=== PATIENT | female | born 1975 | race Two or more races ===

== ENCOUNTER 2018-11-08 17:14 | Inpatient (IN) | payer MEDICARE, MEDICAID ==
[~2018-11-08] VITALS: Ht 160 cm; Wt 56.3 kg
--- NOTE | 2018-11-08 17:46 | NUR ---
ED Nurse Note: pt was taken to ct with tech
--- NOTE | 2018-11-08 17:55 | NUR ---
ED Nurse Note: pt went back from ct with tech
[2018-11-08 18:00] VITALS: BP 97/65
--- NOTE | 2018-11-08 18:00 | NUR ---
ED Nurse Note: pt was brought in by ambulance with from home c/o new onset of seizure, per pt pt has seizure and was advised by the md to take the pt to the hospital, pt has musculoskeletal problem and was contracted, unable to stated the dx of the pt. pt came with g tube, and is on diaper, per pt , pt has pressure ulcer on the coccyx area. pt incomprehensible. will continue to monitor.
--- NOTE | 2018-11-08 18:03 | Diagnostic Imaging Report ---
Indication: Reason For Exam: AMS Technique: Continuous helical CT scanning of the head was performed without intravenous contrast material. Axial and coronal 5 mm sections were generated. Radiation dose was minimized using automated exposure control Dose: Total Dose Length Product - DLP 1404.[address] Dose Index - CTDIvol(s) 70.38 mGy. Comparison: None available FINDINGS: Examination is degraded by motion artifact, limiting assessment of the skull base. There is no acute intracranial hemorrhage, mass effect or cortical edema. The ventricles, cisterns and sulci are normal for age. Visualized mastoid air cells and paranasal sinuses are unremarkable. No focal lesions of the bony calvarium or soft tissues of the scalp are seen. IMPRESSION: Limited examination due to motion artifact. No evidence of acute intracranial hemorrhage, mass effect or cortical edema. MRI may be obtained for more sensitive evaluation as clinically indicated. These findings are concordant with the [facility] preliminary report. The CT scanner at [facility] is accredited by the [employer] and the scans are performed using protocols designed to limit radiation exposure to as low as reasonably achievable to attain images of sufficient resolution adequate for diagnostic evaluation.
--- NOTE | 2018-11-08 18:27 | NUR ---
ED Nurse Note: iv stablished on pt left hand, with good blood flow, blood drawn and was sent to lab. ivf started. will continue to monitor.
[2018-11-08] MEDS ORDERED: ATIVAN1 MG ORAL (18:56)
[2018-11-08] MEDS ORDERED: MORPHINE IR15 MG ORAL (18:56)
[2018-11-08] MEDS ORDERED: SEROQUEL300 MG ORAL (18:56)
[2018-11-08] MEDS ORDERED: SENNA LAXATIVE8.6 MG PO (18:56)
[2018-11-08 18:57] LABS: BASOPHILS % (AUTO) 1.3 % (0.0-2.0); EOSINOPHILS % (AUTO) 1.9 % (0.0-3.0); HEMATOCRIT 36.8 % (37.0-47.0); LYMPHOCYTES % (AUTO) 21.9 % (20.0-45.0); MEAN CORPUSCULAR VOLUME 93 FL (80-99); MONOCYTES % (AUTO) 9.2 % (1.0-10.0); NEUTROPHILS % (AUTO) 65.8 % (45.0-75.0); PLATELET COUNT 207 K/UL (150-450); RED BLOOD COUNT 3.97 M/UL (4.20-5.40); RED CELL DISTRIBUTION WIDTH 11.2 % (11.6-14.8); WHITE BLOOD COUNT 5.8 K/UL (4.8-10.8)
--- NOTE | 2018-11-08 19:10 | NUR ---
HAND-OFF: Report given to Lory BARRERA. pt is hooked on monitor, with vs within normal limit. pt and son on bedside.
[2018-11-08 19:11] LABS: APPEARANCE,URINE CLEAR; BILIRUBIN, URINE NEGATIVE (NEGATIVE); GLUCOSE, URINE (UA) NEGATIVE (NEGATIVE); KETONES,URINE NEGATIVE (NEGATIVE); LEUKOCYTE ESTERASE ,URINE 1+ (NEGATIVE); NITRITE,URINE NEGATIVE (NEGATIVE); PH,URINE 7 (4.5-8.0); PROTEIN,URINE NEGATIVE (NEGATIVE); UROBILINOGEN,URINE NORMAL MG/DL (0.0-1.0)
[2018-11-08 19:14] LABS: ANION GAP 8 mmol/L (5-15); BLOOD UREA NITROGEN 17 mg/dL (7-18); CALCIUM 9.2 MG/DL (8.5-10.1); CARBON DIOXIDE 31 MMOL/L (21-32); CHLORIDE 102 MMOL/L (98-107); CREATININE 0.6 MG/DL (0.55-1.30); POTASSIUM 4.2 MMOL/L (3.5-5.1); SODIUM 141 MMOL/L (136-145)
[2018-11-08 19:19] LABS: COLOR,URINE YELLOW
[2018-11-08 19:26] LABS: ALANINE AMINOTRANSFERASE 22 U/L (12-78); ALBUMIN 3.4 G/DL (3.4-5.0); ALBUMIN/GLOBULIN RATIO 0.8 (1.0-2.7); ALKALINE PHOSPHATASE 114 U/L (46-116); ASPARTATE AMINO TRANSFERASE 23 U/L (15-37); BILIRUBIN,TOTAL 0.2 MG/DL (0.2-1.0); CKMB < 0.5 NG/ML (0.0-3.6); CREATINE KINASE 92 U/L (26-308)
[2018-11-08] MEDS ORDERED: levETIRAcetam 1,000mg/NS100ml 100 ML IVPB ONE (19:30)
[2018-11-08] MEDS ORDERED: Morphine Sulfate 2mg/ml Inj(IV/IM USE ONLY) IVP ONE (19:45)
[2018-11-08] MEDS ORDERED: LORazepam Inj 2mg/ml 1ml IV ONE (19:45)
--- NOTE | 2018-11-08 20:13 | Emergency Room Report ---
History of Present Illness General Chief Complaint: Seizure Source: Patient, Family Member, Significant Other Present Illness HPI 43-year-old female presents ED for evaluation. Brought in by EMS for multiple seizures. Occurred today at home. Patient is bedbound. No reported fall or injury. at bedside states that patient has a neurological disorder. Patient is at her baseline however patient appears to be gesturing with her arms and legs. Patient was initially in hospice care but was taken out of hospice care. Patient upon arrival patient signs of distress. Unable to provide any additional history at this time. No other aggravating relieving factors. No other associated symptoms Allergies: Coded Allergies: No Known Allergies (Unverified , 11/08/18) Patient History Past Medical History: seizures, other - neurological disorder Past Surgical History: none Pertinent Family History: none Social History: Denies: smoking, alcohol use, drug use Now: No Immunizations: UTD Reviewed Nursing Documentation: PMH: Agreed; PSxH: Agreed Nursing Documentation-PMH Past Medical History: No History, Except For Hx Seizures: Yes Review of Systems All Other Systems: limited Physical Exam Vital Signs Date Time Temp Pulse Resp B/P (MAP) Pulse Ox O2 Delivery O2 Flow Rate FiO2 11/08/18 17:24 98.8 82 14 97/65 (76) 100 Nasal Cannula 2.0 Sp02 EP Interpretation: reviewed, normal General Appearance: no apparent distress, other - nonverba, Postictal Head: normocephalic Eyes: bilateral eye normal inspection, bilateral eye PERRL ENT: normal ENT inspection Neck: normal inspection Respiratory: chest non-tender, lungs clear, normal breath sounds, speaking full sentences Cardiovascular #1: regular rate, rhythm, no edema Gastrointestinal: normal bowel sounds, non tender, soft, non-distended, no guarding, no rebound Rectal: deferred Genitourinary: no CVA tenderness Musculoskeletal: other - gesturing upper extremities Neurologic: other - nonverbal Psychiatric: other - nonverbal Skin: other - see nursing skin notes Lymphatic: normal inspection Medical Decision Making Diagnostic Impression: Primary Impression: Seizure disorder ER Course Hospital Course 54-year-old F presents to ED status post seizure. Differential diagnosis includes- breakthrough seizure, alcohol abuse, noncompliance with medication Clinical course Patient placed on stretcher. Initial history and physical I ordered labs, IV fluids, EKG, CT brain Labs-electrolytes okay, no leukocytosis noted, hemoglobin/hematocrit stable. UA negative EKG - NSr, no acute ischemic changes itnerpreted by me CXR - no acute process CT Brain ok Given loading dose of Keppra. Case discussed with Dr. Merlos and he agreed to accept the patient to his service for further care and support. i. I feel this is a highly complex case requiring extensive working including EKG/Rhythm strip, Xray/CT/US, Blood/urine lab work, repeat exams while in ED, and administration of strong opiates/narcotics for pain control, admission to hospital or close patient follow up. Diagnosis - seizure admitted to floor in serious condition Labs Test 11/08/18 18:10 11/08/18 18:51 White Blood Count 5.8 K/UL (4.8-10.8) Red Blood Count 3.97 M/UL (4.20-5.40) Hemoglobin 13.0 G/DL (12.0-16.0) Hematocrit 36.8 % (37.0-47.0) Mean Corpuscular Volume 93 FL (80-99) Mean Corpuscular Hemoglobin 32.7 PG (27.0-31.0) Mean Corpuscular Hemoglobin Concent 35.3 G/DL (32.0-36.0) Red Cell Distribution Width 11.2 % (11.6-14.8) Platelet Count 207 K/UL (150-450) Mean Platelet Volume 7.1 FL (6.5-10.1) Neutrophils (%) (Auto) 65.8 % (45.0-75.0) Lymphocytes (%) (Auto) 21.9 % (20.0-45.0) Monocytes (%) (Auto) 9.2 % (1.0-10.0) Eosinophils (%) (Auto) 1.9 % (0.0-3.0) Basophils (%) (Auto) 1.3 % (0.0-2.0) Prothrombin Time 10.5 SEC (9.30-11.50) Prothromb Time International Ratio 1.0 (0.9-1.1) Activated Partial Thromboplast Time 30 SEC (23-33) Sodium Level 141 MMOL/L (136-145) Potassium Level 4.2 MMOL/L (3.5-5.1) Chloride Level 102 MMOL/L (98-107) Carbon Dioxide Level 31 MMOL/L (21-32) Anion Gap 8 mmol/L (5-15) Blood Urea Nitrogen 17 mg/dL (7-18) Creatinine 0.6 MG/DL (0.55-1.30) Estimat Glomerular Filtration Rate > 60 mL/min (>60) Glucose Level 80 MG/DL (74-106) Lactic Acid Level 0.90 mmol/L (0.4-2.0) Calcium Level 9.2 MG/DL (8.5-10.1) Total Bilirubin 0.2 MG/DL (0.2-1.0) Aspartate Amino Transf (AST/SGOT) 23 U/L (15-37) Alanine Aminotransferase (ALT/SGPT) 22 U/L (12-78) Alkaline Phosphatase 114 U/L (46-116) Total Creatine Kinase 92 U/L (26-308) Creatine Kinase MB < 0.5 NG/ML (0.0-3.6) Creatine Kinase MB Relative Index 0.5 Troponin I 0.000 ng/mL (0.000-0.056) Pro-B-Type Natriuretic Peptide 25 pg/mL (0-125) Total Protein 7.7 G/DL (6.4-8.2) Albumin 3.4 G/DL (3.4-5.0) Globulin 4.3 g/dL Albumin/Globulin Ratio 0.8 (1.0-2.7) Urine Color Yellow Urine Appearance Clear Urine pH 7 (4.5-8.0) Urine Specific Funk 1.010 (1.005-1.035) Urine Protein Negative (NEGATIVE) Urine Glucose (UA) Negative (NEGATIVE) Urine Ketones Negative (NEGATIVE) Urine Blood 1+ (NEGATIVE) Urine Nitrite Negative (NEGATIVE) Urine Bilirubin Negative (NEGATIVE) Urine Urobilinogen Normal MG/DL (0.0-1.0) Urine Leukocyte Esterase 1+ (NEGATIVE) Urine RBC 0-2 /HPF (0 - 2) Urine WBC 2-4 /HPF (0 - 2) Urine Squamous Epithelial Cells Few /LPF (NONE/OCC) Urine Bacteria Few /HPF (NONE) EKG Diagnostic Results Rate: normal Rhythm: NSR ST Segments: no acute changes ASA given to the pt in ED: No Rhythm Strip Diag. Results EP Interpretation: yes Rhythm: NSR, no PVC's, no ectopy Chest X-Ray Diagnostic Results Chest X-Ray Diagnostic Results : Chest X-Ray Ordered: Yes # of Views/Limited/Complete: 1 View Indication: Other EP Interpretation: Yes Interpretation: no consolidation, no effusion, no pneumothorax, no acute cardiopulmonary disease Impression: No acute disease Electronically Signed by: Electronically signed by Blayne Pedersen MD CT/MRI/US Diagnostic Results CT/MRI/US Diagnostic Results : Imaging Test Ordered: CT head Impression no acute process Last Vital Signs Date Time Temp Pulse Resp B/P (MAP) Pulse Ox O2 Delivery O2 Flow Rate FiO2 11/08/18 18:00 98.8 82 14 97/65 100 Nasal Cannula 2.0 Status: improved Disposition: ADMITTED INPATIENT Condition: Serious Referrals: Mario Alberto Merlos MD (PCP) Blayne Pedersen MD Nov 08, 2018 20:13
[2018-11-08] MEDS ORDERED: QUEtiapine 200mg tab GT ONE (20:30)
--- NOTE | 2018-11-08 21:20 | NUR ---
TRANSFER TO FLOOR: Patient transferred to as ordered, per Dr carmichael. Report given to HOLLY Elaine. Belongings and medications given to . Family and or S/O informed of transfer.
[2018-11-08] MEDS ORDERED: METHADONE HCL10 MG ORAL (21:25)
--- NOTE | 2018-11-08 22:00 | NUR ---
NURSE NOTES: Patient in bed, awake, unable to make needs known. Respiration is even, on nasal cannula 2 L. No s/s of pain or discomfort noted. IV site noted. Kept clean and comfortable. Skin is warm and dry to touch. Abdomen is soft and non distended. Provided safe environment. Bed in low and locked position. No belongings noted. Family at bedside. Will call primary MD for orders.
--- NOTE | 2018-11-08 22:52 | NUR ---
NURSE NOTES: Patient noted, moaning, no admission orders at the moment. Will follow up with primary MD.
[2018-11-08] MEDS ORDERED: CELEXA40 MG GT (23:13)
[2018-11-08] MEDS ORDERED: Morphine 5mg/2.5ml Oral Soln ORAL PRN (23:30)
[2018-11-09] VITALS (8 sets, daily range): BP systolic 87–134; BP diastolic 48–79
--- NOTE | 2018-11-09 02:00 | NUR ---
NURSE NOTES: Patient was started on GTube feeding, will reassess.
[2018-11-09] MEDS: LORazepam 1mg tab GT PRN ×3 (02:41→15:17)
[2018-11-09] MEDS: Morphine Sulfate 10mg/5ml Oral Soln ud ORAL PRN ×2 (03:16→11:45)
--- NOTE | 2018-11-09 03:34 | NUR ---
NURSE NOTES: Patient was given PRN pain medication as ordered, pain level 8/10. Will reassess patient. Frequent visual checks.
--- NOTE | 2018-11-09 07:18 | NUR ---
HAND-OFF: Report given to HOLLY Dalal.
--- NOTE | 2018-11-09 07:30 | NUR ---
NURSE NOTES: Received patient in bed, patient is non-verbal but makes noise. Patient is bed bound with GT. GT intact, with jevity 1.2 @45cc for goal. No residual. IV intact and running IVF. HOB elevated. side rails padded for seizure precaution. No seizure activity noted. Will continue plan of care.
--- NOTE | 2018-11-09 08:00 | NUR ---
NURSE NOTES: Patient's blood pressure is 83/54 and pulse rate is 115, temp is 99.0 axillary and o2sat is 96-97% with oxygen. Placed patient in trendelenberg position. No respiratory distress. No wheezing or congestion. Patient opens her eye spontaneously and making noises. Will continue to monitor.
--- NOTE | 2018-11-09 08:20 | NUR ---
NURSE NOTES: patient's blood pressure is still 87/[address] Merlos was paged and awaiting for the return call. GT is on hold while patient is in trendelenberg position.
--- NOTE | 2018-11-09 09:20 | NUR ---
NURSE NOTES: patient's blood pressure is still 85/54 and pulse rate is 125. Rn spoke to Dr. Merlos with new order to give NS 500 cc bolus x1. Will continue to monitor.
--- NOTE | 2018-11-09 10:30 | NUR ---
NURSE NOTES: Rechecked blood pressure of 101/61 pulse is 125, temp is 100.3. cooling measure done. Will continue to monitor.
--- NOTE | 2018-11-09 11:37 | NUR ---
NURSE NOTES: Dr. Merlos is aware of elevated pulse with no new order. He does not want to transfer patient to higher level of care. Will continue to monitor.
--- NOTE | 2018-11-09 11:37 | NUR ---
NURSE NOTES: Patient's temperature is 101.2 and patient is perspiring. Cooling measure done and Spoke to Dr. Merlos and relayed patient's condition with new order to give tylenol,cbc, chest x-ray and blood culture x2, and wound culture from right buttock that pus comes out. RN also talked to patient's [phone] . He said patient is DNR,DNI and will bring the paper work. RN relayed to Dr. Merlos with new order to put DNR and DNI for the patient. Will continue to monitor.
[2018-11-09 11:41] LABS: BASOPHILS % (AUTO) 1.2 % (0.0-2.0); EOSINOPHILS % (AUTO) 1.4 % (0.0-3.0); HEMOGLOBIN 12.8 G/DL (12.0-16.0); LYMPHOCYTES % (AUTO) 13.6 % (20.0-45.0); MEAN CORPUSCULAR VOLUME 96 FL (80-99); MONOCYTES % (AUTO) 6.4 % (1.0-10.0); NEUTROPHILS % (AUTO) 77.4 % (45.0-75.0); PLATELET COUNT 214 K/UL (150-450); RED BLOOD COUNT 3.96 M/UL (4.20-5.40); RED CELL DISTRIBUTION WIDTH 13.3 % (11.6-14.8); WHITE BLOOD COUNT 7.9 K/UL (4.8-10.8)
--- NOTE | 2018-11-09 12:12 | NUR ---
RD ASSESSMENT & RECOMMENDATIONS SEE CARE ACTIVITY FOR COMPLETE ASSESSMENT DAILY ESTIMATED NEEDS: Needs based on wound/ 52kg 30-35 kcals/kg 8176-9143 total kcals 1.5-2.0 g protein/kg 78-104 g total protein 25-30 mL/kg 0768-6996 total fluid mLs NUTRITION DIAGNOSIS: * Increased kcal/prot/micronutrients needs R/T wound healing as evidenced by pt admitted w/ sacral open wound, pending eval. * Swallowing difficulty R/T dysphagia, h/o neurologic disorder as evidenced by PEG dep. CURRENT TF:Jevity 1.2 @ 45ml/hr x 24 hrs ENTERAL NUTRITION RECOMMENDATIONS: Jevity 1.2 @ 55ml/hr x 24 hrs + Prosource 1pkt daily to provide 1320ml, 1584kcal, 73g + 11g prot, 1065ml free water * Rec to increase goal rate to 55ml/hr x 24 hrs * Add Prosource 1pkt daily to meet increased protein needs * HOB over 30 degrees/ water flush per MD ADDITIONAL RECOMMENDATIONS: * CALIBRATED BEDSCALE WT FOR ACCURATE CBW -> bedscale reads 3kg * Wound healing: add Vit C 500mg QD : add ZnSO4 220mg QD x 10 days : add Joe 1pkt BID * Monitor lytes daily, replete as needed
--- NOTE | 2018-11-09 13:05 | NUR ---
RADIOLOGY DEPT., CHEST X-RAY DONE.-P.DYE
--- NOTE | 2018-11-09 16:00 | NUR ---
NURSE NOTES: patient's temp is still 101.4. Rn placed a call to Dr. Merlos to let him know that patient is not on any antibiotic. Per dentures lab technician, Dr. Merlos said he would make his round before 5pm. Cooling measure done. Patient is perspiring, proper skin care done. Will continue to monitor.
[2018-11-09] MEDS: Morphine Sulfate 10mg/5ml Oral Soln ud GT PRN (17:21)
--- NOTE | 2018-11-09 18:19 | Cardiology Report ---
APPROVED REPORT EKG Measurement Heart [id number] MS [id number] Normal sinus rhythm Normal ECG
--- NOTE | 2018-11-09 19:00 | Consultation ---
DATE OF CONSULTATION: 11/09/2018 HISTORY OF PRESENT ILLNESS: The patient is a 43-year-old female with a history of multiple medical comorbidities including seizure, history of psychotic disorder, agitation. The patient is bed-bound and it is gesturing with her arms and legs. The patient is confused, disoriented, yelling and screaming and is agitated. The patient has impairment of cognition, unable to answer process or communicate appropriately. Her is the decision maker. PAST PSYCHIATRIC HISTORY: Psychotic disorder, agitation. The patient has been given Seroquel and trazodone. PAST MEDICAL HISTORY: As above. ALLERGIES: No known drug allergies. SUBSTANCE ABUSE HISTORY: No known history of illicit drug use or alcohol use. MENTAL STATUS EXAMINATION: The patient is disoriented, confused. There is psychomotor agitation. Mood is agitated. Affect is flat. Eyes closed. Thought process, there is a paucity of thought content. Thought content, no suicidal or homicidal ideation. The patient is responding to internal stimuli and yelling. Memory, concentration, and attention is impaired. ASSESSMENT: Newbern I Psychotic disorder. Chronic encephalopathy Newbern II Deferred. Newbern III Seizure. Newbern IV Low Newbern V 10 PLAN: 1. Start the patient on Keppra 1000 mg at bedtime. 3. Seroquel p.r.n. 4. The patient lacks capacity to make decisions. is the decision maker. 5. Provide the patient with reality orientation. Raghu Charles M.D. DR: Jeffery JOB#: [id number] CC: LUANN
--- NOTE | 2018-11-09 19:30 | NUR ---
HAND-OFF: Report given to Ayanna.
--- NOTE | 2018-11-09 19:47 | NUR ---
NURSE NOTES: Patient in bed, patient is non-verbal but makes noise. GTube in place, no residuals noted, running Jevity 1.2. IV in place and running IVF. HOB elevated for aspiration precautions. Side rails padded for seizure precaution. Bed in lowest position, call light within reach. Will continue plan of care.
--- NOTE | 2018-11-09 20:30 | History and Physical Report ---
DATE OF ADMISSION: 11/08/2018 REASON FOR ADMISSION: Possible seizures and sacral wound. HISTORY OF PRESENT ILLNESS: This is a 43-year-old female with an advanced neurologic demyelinating condition. She has been residing at home with her for several years. She has deteriorated significantly and is bed-bound, nonverbal and is dependent on a G-tube for nutrition. She was on a hospice care for a while, but that . She has developed some sacral wounds and has been increasingly uncomfortable, according to her . He bases this on her screaming and crying out as she is not able to express herself in any other way. She also had some episodes of shaking that she is concerned about saying where they are seizures. In the emergency room, her evaluation was completed and hospitalization under my care initiated. PAST MEDICAL HISTORY: As described above. ALLERGIES: None. MEDICATIONS: Reviewed and reconciled. SOCIAL HISTORY: Negative for smoking, alcohol, or substance abuse. Advanced directives per , DNR/DNI. REVIEW OF SYSTEMS: Otherwise not obtainable. PHYSICAL EXAMINATION: VITAL SIGNS: Blood pressure 97/65, pulse 82, and respirations 14. Afebrile. GENERAL: Thin, frail, debilitated female in moderate distress. Crying out frequently, but with eyes open and alert. She does not respond to any commands. There is hyperextension of the extremities and contractures. There is distal muscle atrophy. HEENT: Oropharynx clear. NECK: Supple. LUNGS: Clear. CARDIAC: Regular. Normal S1, S2 with no murmur. ABDOMEN: Soft. No guarding or rebound. G-tube site intact. EXTREMITIES: With no edema. SKIN: Notable for a heel stage II and a sacral unstageable with significant undermining and drainage. LABORATORY DATA: Labs are reviewed. 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 She is bedbound and totally dependent on care. It is unclear whether she had seizures or it is just shaking as a result of her discomfort. The latter appears more likely since her states that she was creaming out during these episodes just like she usually does. Other concerns at this time include the risk of aspiration, her G-tube nutritional needs, and her skin breakdown with, especially the sacral wound site. RECOMMENDATION: 1. Observation. 2. Possible anti-seizure therapy. 3. Skin care. 4. Wound evaluation. 5. Empiric antibiotics following cultures. 6. Hydration. 7. Metabolic profile. 8. Pain control. 9. Placement consideration to follow. 10. We will continue with DNR/DNI. Mario Alberto Merlos M.D. DR: LIZ JOB#: [id number] CC:
[2018-11-09] MEDS: Vancomycin 1.25gm Premix IVPB SCH (20:46)
--- NOTE | 2018-11-09 21:01 | NUR ---
CASE MANAGEMENT: REVIEW 43Y/F PRESENTED TO ED FROM HOME CC: DIFFICULTY BREATHING . SEIZURE . HX NEUROLOGICAL DISORDER / BEDBOUND / DNR/DNI SI: SEIZURE DISORDER . AMS . G-TUBE FEEDING T 101.2 HR 125 RR 22 BP 93/48 SAT 100% 4L/NC VIT B12 1655 IS: NS IVF BOLUS X1 KEPPRA IV X1 MORPHINE IV X1 ATIVAN IV X1 SEROQUEL GT X1 PATIENT ADMITTED TO MED/SURG UNIT 11/09/2018 DCP: PATIENT IS FROM HOME
--- NOTE | 2018-11-09 21:35 | Consultation ---
History of Present Illness General Chief Complaint: Seizure Present Illness HPI 43 year old very unfortunate female with multiple medical comorbidities who is skilled nursing resident on hospice prior g tube dependant not mobile bed bound that presented for evaluation and care. febrile. tachy. on admission noted to have decubitus ulcer requiring care. surgery called to evaluate. patient seen, chart reviewed, patient examined. patient not verbal and unable to provide history. turned with nursing staff this AM to evaluate wounds and provide care plan. Allergies: Coded Allergies: No Known Allergies (Unverified , 11/08/18) Medication History Scheduled Citalopram Hydrobromide (Celexa), 40 MG GT DAILY, (Reported) Methadone Hcl* (Methadone*), 300 MG ORAL BID, (Reported) Quetiapine Fumarate (Seroquel), 300 MG ORAL BEDTIME, (Reported) Scheduled PRN Lorazepam* (Ativan*), 1 MG ORAL Q4HR PRN for For Seizures, (Reported) Morphine HCl (Morphine Sulfate ER), Unknown Dose ORAL Q4HR PRN for For Pain, ( Reported) Miscellaneous Medications Sennosides (Senna Laxative), Unknown Dose PO, (Reported) Patient History Limited by: medical condition History Provided By: Medical Record Healthcare decision maker Resuscitation status Full Code Advanced Directive on File No Past Medical/Surgical History Past Medical/Surgical History: (1) Decubitus skin ulcer (2) Seizure disorder Review of Systems ROS Narrative unable to obtain given medical condition Physical Exam General Appearance: mild distress Lines, tubes and drains: peripheral HEENT: mucous membranes moist Neck: normal inspection Respiratory/Chest: decreased breath sounds Cardiovascular/Chest: regular rhythm Abdomen: soft, no organomegaly, no mass, feeding tube Extremities: other Skin Exam: other Neurologic: other Last 24 Hour Vital Signs Date Time Temp Pulse Resp B/P (MAP) Pulse Ox O2 Delivery O2 Flow Rate FiO2 11/09/18 20:26 100.9 73 18 98 11/09/18 20:25 136 18 134/79 (97) 11/09/18 16:50 99.8 11/09/18 16:00 101.4 120 18 93/48 (63) 100 11/09/18 12:00 101.2 121 22 112/51 (71) 98 11/09/18 10:30 100.3 125 22 101/61 (74) 99 11/09/18 09:00 Room Air 2.0 11/09/18 08:45 98 Nasal Cannula 2.0 28 11/09/18 08:20 100.2 125 22 87/56 (66) 97 11/09/18 08:00 99.0 115 22 87/54 (65) 97 11/09/18 04:00 98.9 68 22 114/49 (70) 97 11/09/18 00:00 98.1 81 18 95/60 (72) 97 11/08/18 22:05 Nasal Cannula 4.0 11/08/18 21:39 98.8 Intake and Output 11/08/18 11/09/18 18:59 06:59 # Voids 3 Laboratory Tests Test 11/09/18 06:05 White Blood Count 7.9 K/UL (4.8-10.8) Red Blood Count 3.96 M/UL (4.20-5.40) L Hemoglobin 12.8 G/DL (12.0-16.0) Hematocrit 38.0 % (37.0-47.0) Mean Corpuscular Volume 96 FL (80-99) Mean Corpuscular Hemoglobin 32.3 PG (27.0-31.0) H Mean Corpuscular Hemoglobin Concent 33.7 G/DL (32.0-36.0) Red Cell Distribution Width 13.3 % (11.6-14.8) Platelet Count 214 K/UL (150-450) Mean Platelet Volume 6.7 FL (6.5-10.1) Neutrophils (%) (Auto) 77.4 % (45.0-75.0) H Lymphocytes (%) (Auto) 13.6 % (20.0-45.0) L Monocytes (%) (Auto) 6.4 % (1.0-10.0) Eosinophils (%) (Auto) 1.4 % (0.0-3.0) Basophils (%) (Auto) 1.2 % (0.0-2.0) Ammonia 26 umol/L (11-32) Vitamin B12 Level 1655 PG/ML (193-986) H Folate 40.8 NG/ML (8.6-58.9) Thyroid Stimulating Hormone (TSH) 3.287 uiU/mL (0.358-3.740) Height (Feet): 5 Height (Inches): 3.00 Weight (Pounds): 125 Medications Current Medications Medications (Trade) Dose Ordered Sig/Alex Route PRN Reason Start Time Stop Time Status Last Admin Dose Admin Acetaminophen (Tylenol) 650 mg Q4H PRN ORAL Mild Pain/Temp > 100.5 11/09/18 11:30 12/09/18 11:29 11/09/18 16:20 Cefepime HCl 1 gm/ Dextrose 55 ml @ 110 mls/hr EVERY 12 HOURS IVPB 11/09/18 21:00 11/16/18 20:59 Fentanyl (Duragesic) 1 patch Q72H TDERMAL 11/09/18 18:00 11/16/18 17:59 11/09/18 18:12 Heparin Sodium (Porcine) (Heparin 5000 units/ml) 5,000 units EVERY 12 HOURS SUBQ 11/10/18 09:00 12/10/18 08:59 Levetiracetam (Keppra) 1,000 mg BEDTIME ORAL 11/09/18 21:00 12/09/18 20:59 11/09/18 20:46 Lorazepam (Ativan) 1 mg Q6H PRN GT For Anxiety 11/08/18 23:45 11/15/18 23:44 11/09/18 15:17 Miscellaneous Medication (fentaNYL Destruction) 1 ea Q72H MISC 11/12/18 17:59 12/12/18 17:58 Morphine Sulfate (Morphine 10mg/ 5ml Oral Soln) 5 mg Q4H PRN GT For Pain 11/09/18 15:00 12/08/18 23:29 11/09/18 17:21 Quetiapine Fumarate (SEROquel) 25 mg Q6H PRN GT For Anxiety 11/09/18 15:00 12/09/18 14:59 Quetiapine Fumarate (SEROquel) 200 mg BEDTIME GT 11/09/18 21:00 12/09/18 20:59 11/09/18 20:46 Sodium Chloride 1,000 ml @ 75 mls/hr [id number] IV 11/08/18 23:30 12/08/18 23:29 11/09/18 13:11 Vancomycin HCl (Vanco rx to dose) 1 ea DAILY PRN MISC Per rx protocol 11/09/18 17:15 9/6/19 17:14 Vancomycin HCl/ Dextrose 275 ml @ 183.333 mls/hr Q12HR@0800,1999 IVPB 11/09/18 20:00 11/14/18 19:59 11/09/18 20:46 Assessment/Plan Problem List: (1) Decubitus skin ulcer ICD Codes: L89.90 - Pressure ulcer of unspecified site, unspecified stage SNOMED: 887986442 Qualifiers: (2) Cellulitis of buttock, right Assessment & Plan: Full thickness pressure injury R buttocks oozing purulent exudate with trace amt of slough.(L)0.7cm x (W)1.2cm x (D)2.1cm,Tunneling clockwise @11o'clock by 3.3cm.Periwound is indurated with hyperpigmentation. Historical scars noted to L buttocks. Given Fevers and still drainage of wound will obtain CT pelvis to ensure no deep pocket or tunneling abscess need to monitor for incontinence and change dressings often to ensure clean ICD Codes: L03.317 - Cellulitis of buttock SNOMED: [id number] Assessment/Plan: (1) Decubitus skin ulcer Assessment & Plan: Pt presented on admission with contractures and full thickness pressure injury R buttocks that is tunneled. Full thickness pressure injury R buttocks oozing purulent exudate with trace amt of slough.(L)0.7cm x (W)1.2cm x (D)2.1cm,Tunneling clockwise @11o'clock by 3.3cm.Periwound is indurated with hyperpigmentation. Historical scars noted to L buttocks. Non-blanchable erythema with fluctuance R heel. (L)2cm x (W)2.5cm. No other skin concerns noted. Tx.Plan: Cleanse wound R buttocks with Saline. Loosely pack with Iodoform gauze .Apply Moisture Barrier periwound. Cover with Optifoam drsg Twice daily and prn. Apply Moisture Barrier paste to Sacrum and both Ischial areas with each incontinence care. Apply Cavilon Skin Barrier to both heels. Cover each heel with Optifoam drsg. change very 7 days and prn. Reposition at least every 2hours or as tolerated. Off-load heels with pillow. Given Fevers and still drainage of wound will obtain CT pelvis to ensure no deep pocket or tunneling abscess need to monitor for incontinence and change dressings often to ensure clean thank you (2) Cellulitis of buttock, right Assessment & Plan: Full thickness pressure injury R buttocks oozing purulent exudate with trace amt of slough.(L)0.7cm x (W)1.2cm x (D)2.1cm,Tunneling clockwise @11o'clock by 3.3cm.Periwound is indurated with hyperpigmentation. Historical scars noted to L buttocks. Given Fevers and still drainage of wound will obtain CT pelvis to ensure no deep pocket or tunneling abscess need to monitor for incontinence and change dressings often to ensure clean Ruddy Elias Nov 09, 2018 21:35
[2018-11-09] MEDS: Cefepime HCl 1 GM in D5W 55 ML IVPB SCH (23:16)
[2018-11-10] VITALS (7 sets, daily range): BP systolic 95–131; BP diastolic 62–76
[2018-11-10] MEDS: Morphine Sulfate 10mg/5ml Oral Soln ud GT PRN ×3 (01:48→20:54)
--- NOTE | 2018-11-10 01:48 | NUR ---
NURSE NOTES: Patient moaning, yelling. Morphine PRN was given as ordered for pain based on FLACC scale. Will continue to monitor.
--- NOTE | 2018-11-10 06:30 | NUR ---
NURSE NOTES: NO GT RESIDUAL NOTED, INCREASED TUBE FEEDING TO GOAL RATE OF 45 ML/HR. WILL CONTINUE TO MONITOR.
--- NOTE | 2018-11-10 07:19 | NUR ---
HAND-OFF: Report given to CAROLYN FONSECA RN.
--- NOTE | 2018-11-10 08:05 | NUR ---
NURSE NOTES: Patient received resting in bed, breathing unlabored with nasal cannula 2 L/min. G-tube patent and intact, with feeding running at 45cc/hr. IV site on left arm observed, intact running NS @75cc/hr. Bed locked in lowest position. HOB elevated for aspiration precaution. Siderails padded for seizure precaution. Call light placed within reach, will continue to monitor.
[2018-11-10] MEDS: Cefepime HCl 1 GM in D5W 55 ML IVPB SCH ×2 (08:14→21:35)
[2018-11-10] MEDS: Heparin 5000 units/ml inj SUBQ SCH ×2 (08:20→20:30)
--- NOTE | 2018-11-10 08:34 | NUR ---
NURSE NOTES:WOUND CARE NOTES:Pt presented on admission with contractures and full thickness pressure injury R buttocks that is tunneled. Full thickness pressure injury R buttocks oozing purulent exudate with trace amt of slough.(L)0.7cm x (W)1.2cm x (D)2.1cm,Tunneling clockwise @11o'clock by 3.3cm.Periwound is indurated with hyperpigmentation. Historical scars noted to L buttocks. Non-blanchable erythema with fluctuance R heel. (L)2cm x (W)2.5cm. No other skin concerns noted. Tx.Plan: Cleanse wound R buttocks with Saline. Loosely pack with Iodoform gauze .Apply Moisture Barrier periwound. Cover with Optifoam drsg Twice daily and prn. Apply Moisture Barrier paste to Sacrum and both Ischial areas with each incontinence care. Apply Cavilon Skin Barrier to both heels. Cover each heel with Optifoam drsg. change very 7 days and prn. Reposition at least every 2hours or as tolerated. Off-load heels with pillow.
[2018-11-10] MEDS: Vancomycin 1.25gm Premix IVPB SCH ×2 (09:43→19:46)
[2018-11-10] MEDS: LORazepam 1mg tab GT PRN (12:08)
--- NOTE | 2018-11-10 12:42 | NUR ---
NURSE NOTES: RN left voicemail to Dr. López informing him positive blood culture results.
--- NOTE | 2018-11-10 14:04 | Diagnostic Imaging Report ---
Indication: Dyspnea Comparison: 11/09/2018 A single view chest radiograph was obtained. Findings: Lung volumes are low bilaterally. Heart size is normal. The bones are osteopenic. No infiltrate identified. Gastrostomy noted. IMPRESSION: No acute disease
[2018-11-10] MEDS: Albuterol/Ipratropium 3ml neb HHN PRN (14:08)
--- NOTE | 2018-11-10 14:38 | CDS Physician Query ---
Clarification is required for compliance, coding accuracy, and to reflect severity of illness for this patient Dear Dr. Mario Alberto Merlos Date: 11/10/2018 Stock Grader/CDS Name: Laurel Bess Clinical documentation states: HNP: 43-year-old female with an advanced neurologic demyelinating condition...She has deteriorated significantly and is bed-bound, nonverbal and is dependent on a G-tube for nutrition... She is bedbound and totally dependent on care. Please respond to the following question: Is there a diagnosis specific to these symptoms or values? If so please state below. PHYSICIAN RESPONSE: [] Quadriplegia [] Functional Quadriplegia [] Complete immobility due to frailty/disability [] Other disability: [] Clinically undetermined Present on Admission: [] Yes [] No [] Clinically Undetermined Physician signature Date Please also document in your Progress Notes and/or Discharge Summary and indicate if the condition was present on admission. MEGAND
--- NOTE | 2018-11-10 15:20 | Diagnostic Imaging Report ---
Indications: Right hip pain Findings: Single view of the right hip was obtained. No obvious fracture or malalignment identified. The bones are osteopenic. IMPRESSION: Limited evaluation. No acute injury
--- NOTE | 2018-11-10 15:43 | Surgery Progress Note ---
Surgery Progress Note Subjective Additional Comments remains febrile tachy wbc nml exam as below draining from wound incontinence on wound Objective Last 24 Hour Vital Signs Date Time Temp Pulse Resp B/P (MAP) Pulse Ox O2 Delivery O2 Flow Rate FiO2 11/10/18 14:20 105 30 100 Nasal Cannula 2.0 28 11/10/18 14:08 103 32 96 Nasal Cannula 2.0 28 11/10/18 12:00 102.3 144 32 120/76 (91) 96 11/10/18 09:55 Nasal Cannula 2.0 11/10/18 09:49 101.7 11/10/18 09:14 97 Nasal Cannula 2.0 28 11/10/18 08:44 101.7 11/10/18 08:00 102.2 132 32 131/71 (91) 94 11/10/18 06:42 98.4 11/10/18 05:14 104 119/66 (83) 11/10/18 04:22 98.4 85 18 95/62 (73) 99 11/10/18 00:12 98.5 73 18 118/66 (83) 98 11/09/18 22:11 Nasal Cannula 2.0 11/09/18 20:26 100.9 73 18 98 11/09/18 20:25 136 18 134/79 (97) 11/09/18 16:00 101.4 120 18 93/48 (63) 100 I&O Intake and Output 11/09/18 11/10/18 19:00 07:00 Intake Total 1565 ml 1255.000 ml Balance 1565 ml 1255.000 ml Intake Free Water 60 ml 100 ml IV Total 1175 ml 780.000 ml Tube Feeding 330 ml 375 ml # Voids 4 3 Dressing: saturated Wound: other Drains: other Cardiovascular: RSR Respiratory: clear Abdomen: soft, present bowel sounds, non-distended Extremities: no cyanosis Plan Problems: (1) Decubitus skin ulcer Assessment & Plan: Pt presented on admission with contractures and full thickness pressure injury R buttocks that is tunneled. Full thickness pressure injury R buttocks oozing purulent exudate with trace amt of slough.(L)0.7cm x (W)1.2cm x (D)2.1cm,Tunneling clockwise @11o'clock by 3.3cm.Periwound is indurated with hyperpigmentation. Historical scars noted to L buttocks. Non-blanchable erythema with fluctuance R heel. (L)2cm x (W)2.5cm. No other skin concerns noted. Tx.Plan: Cleanse wound R buttocks with Saline. Loosely pack with Iodoform gauze .Apply Moisture Barrier periwound. Cover with Optifoam drsg Twice daily and prn. Apply Moisture Barrier paste to Sacrum and both Ischial areas with each incontinence care. Apply Cavilon Skin Barrier to both heels. Cover each heel with Optifoam drsg. change very 7 days and prn. Reposition at least every 2hours or as tolerated. Off-load heels with pillow. Given Fevers and still drainage of wound will obtain CT pelvis to ensure no deep pocket or tunneling abscess need to monitor for incontinence and change dressings often to ensure clean thank you (2) Cellulitis of buttock, right Assessment & Plan: Full thickness pressure injury R buttocks oozing purulent exudate with trace amt of slough.(L)0.7cm x (W)1.2cm x (D)2.1cm,Tunneling clockwise @11o'clock by 3.3cm.Periwound is indurated with hyperpigmentation. Historical scars noted to L buttocks. Given Fevers and still drainage of wound will obtain CT pelvis to ensure no deep pocket or tunneling abscess need to monitor for incontinence and change dressings often to ensure clean Ruddy Elias Nov 10, 2018 15:43
[2018-11-10] MEDS ORDERED: Isovue-300 100ml vial INJ PRN (15:45)
--- NOTE | 2018-11-10 19:15 | Consultation ---
DATE OF CONSULTATION: 11/10/2018 INFECTIOUS DISEASE CONSULT This consult is for coverage of Dr. Bone. CONSULTING PHYSICIAN: Vern López M.D. PRIMARY ATTENDING PHYSICIAN: Mario Alberto Merlos M.D. REASON FOR CONSULT: Sepsis and infected pressure ulcer. HISTORY OF PRESENT ILLNESS: The patient is a 43-year-old female admitted on 11/08/2018 from home after multiple seizures. The patient has kind of neurodegenerative disease and bedbound. For some time she was under hospice care, now lives at home. After admission to the hospital, she started developing fever since yesterday and that today increased to 102.2. In the hospital, the patient became tachycardic with heart rate of 132. She is nonverbal. PAST MEDICAL HISTORY: Neurodegenerative disorder, quadriplegia, pressure ulcer, status postGT placement. Also, she has psychiatric issues. ALLERGIES: No known drug allergies. MEDICATIONS: Getting fentanyl, heparin, Keppra, cefepime and vancomycin started last night, Seroquel, morphine, Tylenol, lorazepam, and sodium chloride. SOCIAL HISTORY: , lives at home. No history of alcohol, drug abuse, or smoking. CODE STATUS: DNR/DNI. PHYSICAL EXAMINATION: VITAL SIGNS: Temperature 102.2 degrees, pulse 132, and blood pressure 131/71. GENERAL APPEARANCE: Seems to be diaphoretic. HEAD AND NECK: [place] conjunctivae. HEART: Tachycardic. LUNGS: Clear. The patient is breathing fast. ABDOMEN: Soft. G-tube in place. EXTREMITIES: Severely contracted. SKIN: Right buttock pressure ulcer, according to nurse has a lot of undermining. LABORATORY AND DIAGNOSTIC DATA: WBC yesterday was 7.9, hemoglobin 12.9, hematocrit 38, and platelets 214,000. Sodium 141, potassium 4.2, chloride 102, bicarbonate 31, BUN 17, and creatinine 0.6. Glucose is 80. LFTs are within normal limits. Albumin is 3.4. UA was negative. CT scan at the time of admission showed atrophy. IMPRESSION: Sepsis with tachycardia and fever. Source is not clear right now. The patient had multiple seizures before admission, may have aspiration and developed aspiration pneumonia. Also, has right hip pressure ulcer that may get infected. The patient is quadriplegic and has history neurodegenerative disorder. RECOMMENDATION: We will continue with vancomycin and cefepime. We will order chest x-ray. We will order right hip x-ray to rule out underlying osteomyelitis of the hip. We will follow up the cultures. So far blood cultures are negative. At the end of my exam, I thank Dr. Merlos, for involving me in the care of this patient. Vern López M.D. DR: LIZBETH JOB#: [id number] CC: LUANN
--- NOTE | 2018-11-10 20:20 | NUR ---
NURSE NOTES: Patient in bed, awake, nonverbal. GTube in place, no residuals noted, running tube feeding. IV in place and running IVF. HOB elevated for aspiration precautions. Side rails padded for seizure precaution. Bed in lowest position, call light within reach. Will continue plan of care.
--- NOTE | 2018-11-10 22:22 | NUR ---
NURSE NOTES: Patient temp was 102.2 F as fever was endorsed by previous AM nurse and MD is already aware. Tylenol PRN was given as ordered and cooling measures were done. Temp was rechecked and result was 101.8 F. Will continue to monitor.
[2018-11-11] VITALS (7 sets, daily range): BP systolic 100–133; BP diastolic 59–71
--- NOTE | 2018-11-11 00:41 | NUR ---
NURSE NOTES: CHANGED RIGHT BUTTOCK WOUND DRESSING.
[2018-11-11] MEDS: Morphine Sulfate 10mg/5ml Oral Soln ud GT PRN (03:28)
--- NOTE | 2018-11-11 04:15 | Progress Note ---
DATE: 11/10/2018 INTERNAL MEDICINE PROGRESS NOTE SUBJECTIVE: The patient was re-evaluated. This case was discussed with her . The patient is tolerating G-tube feedings. She apparently has episodes of pain and is calling out frequently. She is essentially noncommunicative otherwise. OBJECTIVE: GENERAL: Diffuse muscle atrophy. Hyperextended extremities. VITAL SIGNS: Blood pressure 93/48 with a T-max of 101.4 and heart rate of 120. LUNGS: Clear. CARDIAC: Regular. ABDOMEN: Soft. G-tube intact. SKIN: Wound site has dressing in place. LABORATORY DATA: Cultures are negative to date. IMPRESSION: 1. No signs of seizure. 2. Functional quadriparesis. 3. Neurologic demyelination. 4. Advanced dementia. 5. Fevers of unknown origin. 6. Chronic pain presumably due to neuropathy. 7. Sacral wound. PLAN: 1. Optimize pain control. 2. Panculture. 3. Empiric antimicrobials. 4. Infectious Disease consultation. 5. Wound care. Mario Alberto Merlos M.D. DR: SUDARSHAN JOB#: [id number] CC:
--- NOTE | 2018-11-11 04:30 | Progress Note ---
DATE: 11/10/2018 INTERNAL MEDICINE PROGRESS NOTE SUBJECTIVE: The patient is somewhat more calm today. Still calling out and pain-free at times. Pain control regimen was advanced yesterday. The patient continues to spike fevers. She has been pancultured. Infectious Disease consultation was obtained. OBJECTIVE: VITAL SIGNS: T-max 102.3, blood pressure 120/76, heart rate 144, respiratory rate 32, and oxygen saturation 96% on 2 liters. LUNGS: Diminished breath sounds. No wheezing or rales. HEART: Regular rhythm. Rapid rate. Normal S1, S2. ABDOMEN: Soft. G-tube intact. EXTREMITIES: No edema. Extremities with hyperextension and muscle atrophy. The patient is nonverbal. Wound site has dressing in place. Bedside debridement was completed by surgeon. LABORATORY DATA: Metabolic profile including B12, folate, and thyroid function were normal. White count is 7.9 and hemoglobin 12.8. Hip x-ray and chest x-ray are both negative. IMPRESSION: 1. Fevers of unknown origin. 2. Functional quadriplegia. 3. Demyelination syndrome with severe neurologic compromise. 4. Sacral wound. PLAN: 1. Empiric antibiotics. 2. Await cultures. 3. Wound care. 4. Repeat chest x-ray and laboratory studies. 5. Pain control. 6. DVT prophylaxis. 7. Nutrition by feeding tube. Mario Alberto Merlos M.D. DR: SUDARSHAN JOB#: [id number] CC:
--- NOTE | 2018-11-11 05:00 | Progress Note ---
DATE: 11/10/2018 SUBJECTIVE: The patient is in bed, nonverbal, mumbling and it appeared that the patient continues to respond to internal stimuli. Less agitated. Not yelling today. MENTAL STATUS EXAMINATION: The patient is alert, confused, and disoriented. Mood is agitated. Affect is flat. Thought process, there is a paucity of thought content. Thought content, no suicidal or homicidal ideation. ASSESSMENT: Chronic encephalopathy. PLAN: 1. We will continue the current medications. 2. Continue the Seroquel. 3. Discussed the case with . Raghu Charles M.D. DR: ALMA ROSA JOB#: [id number] CC:
--- NOTE | 2018-11-11 07:08 | NUR ---
HAND-OFF: Report given to CAROLYN FONSECA RN. ENDORSED TO RN REGARDING PATIENT'S FEVER.
[2018-11-11 07:33] LABS: BASOPHILS % (AUTO) 0.7 % (0.0-2.0); HEMOGLOBIN 11.5 G/DL (12.0-16.0); LYMPHOCYTES % (AUTO) 8.2 % (20.0-45.0); MEAN CORPUSCULAR VOLUME 97 FL (80-99); MONOCYTES % (AUTO) 6.4 % (1.0-10.0); NEUTROPHILS % (AUTO) 84.8 % (45.0-75.0); PLATELET COUNT 212 K/UL (150-450); RED BLOOD COUNT 3.51 M/UL (4.20-5.40); WHITE BLOOD COUNT 10.7 K/UL (4.8-10.8)
--- NOTE | 2018-11-11 07:38 | NUR ---
NURSE NOTES: Patient received sleeping in bed, breathing with nasal cannula art 2L/min. G-tube feeding running at 45cc/hr. Dressing is c/d/i. Bed locked in lowest position, HOB elevated. Call light placed within reach, will continue to monitor.
[2018-11-11 07:44] LABS: ANION GAP 12 mmol/L (5-15); BLOOD UREA NITROGEN 23 mg/dL (7-18); CALCIUM 8.9 MG/DL (8.5-10.1); CARBON DIOXIDE 21 MMOL/L (21-32); CHLORIDE 111 MMOL/L (98-107); CREATININE 0.8 MG/DL (0.55-1.30)
[2018-11-11 08:01] LABS: SODIUM 144 MMOL/L (136-145)
[2018-11-11 08:03] LABS: POTASSIUM 2.7 MMOL/L (3.5-5.1)
[2018-11-11 08:07] LABS: ALANINE AMINOTRANSFERASE 33 U/L (12-78); ALBUMIN 3.4 G/DL (3.4-5.0); ALKALINE PHOSPHATASE 76 U/L (46-116); ASPARTATE AMINO TRANSFERASE 67 U/L (15-37); BILIRUBIN,DIRECT < 0.1 MG/DL (0.0-0.3); BILIRUBIN,TOTAL 0.4 MG/DL (0.2-1.0)
[2018-11-11] MEDS: Cefepime HCl 1 GM in D5W 55 ML IVPB SCH ×2 (08:11→22:27)
--- NOTE | 2018-11-11 08:14 | Diagnostic Imaging Report ---
Indication: Reason For Exam: COUGH Technique: Single AP view of the chest. Comparison: Chest radiograph dated 11/08/2018 Findings: The cardiomediastinal silhouette is within normal limits. There is no new airspace consolidation, pneumothorax or pleural effusion. Redemonstration of right mid lung scarring/atelectasis./Osseous structures demonstrate no acute abnormality. IMPRESSION: No significant change from prior examination.
--- NOTE | 2018-11-11 08:15 | Diagnostic Imaging Report ---
Indication: Reason For Exam: AMS Technique: Single AP view of the chest. Comparison: None. Findings: The cardiomediastinal silhouette is within normal limits. There is elevation of the right hemidiaphragm. Low lung volumes leading to bronchovascular crowding. No airspace consolidation, pneumothorax, or pleural fluid. Right midlung scarring/chronic atelectasis. Osseous structures demonstrate no acute abnormality. IMPRESSION: No airspace consolidation.
[2018-11-11] MEDS: Heparin 5000 units/ml inj SUBQ SCH ×2 (08:26→20:25)
[2018-11-11] MEDS: Vancomycin 1.25gm Premix IVPB SCH ×2 (08:56→20:20)
--- NOTE | 2018-11-11 09:28 | NUR ---
NURSE NOTES: Voicemail left on PMD's emergency message line for patient's low potassium level. Call back number included.
--- NOTE | 2018-11-11 10:54 | Infectious Diseases Prog Note ---
Assessment/Plan Assessment/Plan IMPRESSION: Sepsis Positive blood culture, likely contamination Seizures Disorder Infected right hip pressure ulcer Quadriplegia Neurodegenerative disorder. Hypokalemia RECOMMENDATION: We will continue with vancomycin and cefepime. We will f/u cultures & CT scan of abdomen & Pelvis Subjective ROS Limited/Unobtainable: Yes Constitutional: Reports: fever, other - [id number] Allergies: Coded Allergies: No Known Allergies (Unverified , 11/08/18) Objective Vital Signs Last 24 Hour Vital Signs Date Time Temp Pulse Resp B/P (MAP) Pulse Ox O2 Delivery O2 Flow Rate FiO2 11/11/18 09:00 Nasal Cannula 2.0 11/11/18 08:29 95 Nasal Cannula 2.0 28 11/11/18 08:29 87 18 95 Nasal Cannula 2.0 28 11/11/18 08:00 101.1 69 19 100/59 (73) 99 11/11/18 07:11 102.0 11/11/18 05:32 101.8 11/11/18 04:00 91 22 133/71 (91) 97 11/11/18 00:07 100.0 11/11/18 00:00 79 22 113/64 (80) 98 11/10/18 21:18 Nasal Cannula 2.0 11/10/18 20:20 93 20 96 Nasal Cannula 2.0 28 11/10/18 20:20 96 Nasal Cannula 2.0 28 11/10/18 20:00 102.2 93 26 109/72 (84) 97 11/10/18 16:00 102.6 73 28 116/67 (83) 97 11/10/18 14:20 105 30 100 Nasal Cannula 2.0 28 11/10/18 14:08 103 32 96 Nasal Cannula 2.0 28 11/10/18 12:00 102.3 144 32 120/76 (91) 96 Height (Feet): 5 Height (Inches): 3.00 Weight (Pounds): 125 General Appearance: no acute distress HEENT: mucous membranes moist Respiratory/Chest: lungs clear Cardiovascular: normal rate Abdomen: soft, non tender, other - GT feeding Extremities: no edema, other - severe contractions Neurologic/Psychiatric: aphasia Microbiology Date/Time Source Procedure Growth Status 11/09/18 12:40 Blood Blood Culture - Preliminary NO GROWTH AFTER 24 HOURS Resulted 11/09/18 12:25 Blood Blood Culture - Preliminary NO GROWTH AFTER 24 HOURS Resulted 11/08/18 18:10 Blood Blood Culture - Preliminary NO GROWTH AFTER 48 HOURS Resulted 11/08/18 17:55 Blood Blood Culture - Preliminary Staphylococcus Sp Coag Neg Resulted 11/09/18 18:20 Wound Gram Stain - Final Resulted 11/09/18 18:20 Wound Culture - Preliminary Gram Negative Bacillus 1 Resulted Laboratory Tests Test 11/11/18 06:17 White Blood Count 10.7 K/UL (4.8-10.8) Red Blood Count 3.51 M/UL (4.20-5.40) L Hemoglobin 11.5 G/DL (12.0-16.0) L Hematocrit 34.0 % (37.0-47.0) L Mean Corpuscular Volume 97 FL (80-99) Mean Corpuscular Hemoglobin 32.7 PG (27.0-31.0) H Mean Corpuscular Hemoglobin Concent 33.8 G/DL (32.0-36.0) Red Cell Distribution Width 12.0 % (11.6-14.8) Platelet Count 212 K/UL (150-450) Mean Platelet Volume 7.2 FL (6.5-10.1) Neutrophils (%) (Auto) 84.8 % (45.0-75.0) H Lymphocytes (%) (Auto) 8.2 % (20.0-45.0) L Monocytes (%) (Auto) 6.4 % (1.0-10.0) Eosinophils (%) (Auto) 0.0 % (0.0-3.0) Basophils (%) (Auto) 0.7 % (0.0-2.0) Erythrocyte Sedimentation Rate Pending Sodium Level 144 MMOL/L (136-145) Potassium Level 2.7 MMOL/L (3.5-5.1) *L Chloride Level 111 MMOL/L (98-107) H Carbon Dioxide Level 21 MMOL/L (21-32) Anion Gap 12 mmol/L (5-15) Blood Urea Nitrogen 23 mg/dL (7-18) H Creatinine 0.8 MG/DL (0.55-1.30) Estimat Glomerular Filtration Rate > 60 mL/min (>60) Glucose Level 123 MG/DL (74-106) H Calcium Level 8.9 MG/DL (8.5-10.1) Total Bilirubin 0.4 MG/DL (0.2-1.0) Direct Bilirubin < 0.1 MG/DL (0.0-0.3) Aspartate Amino Transf (AST/SGOT) 67 U/L (15-37) H Alanine Aminotransferase (ALT/SGPT) 33 U/L (12-78) Alkaline Phosphatase 76 U/L (46-116) C-Reactive Protein, Quantitative 1.6 mg/dL (0.00-0.90) H Total Protein 7.1 G/DL (6.4-8.2) Albumin 3.4 G/DL (3.4-5.0) Vancomycin Level Trough 13.4 ug/mL (5.0-12.0) H Current Medications Medications (Trade) Dose Ordered Sig/Alex Route PRN Reason Start Time Stop Time Status Last Admin Dose Admin Acetaminophen (Tylenol) 650 mg Q4H PRN ORAL Mild Pain/Temp > 100.5 11/09/18 11:30 12/09/18 11:29 11/11/18 05:51 Albuterol/ Ipratropium (Albuterol/ Ipratropium) 3 ml Q6H PRN HHN Shortness of Breath 11/10/18 14:00 11/15/18 13:59 11/10/18 14:08 Cefepime HCl 1 gm/ Dextrose 55 ml @ 110 mls/hr EVERY 12 HOURS IVPB 11/09/18 21:00 11/16/18 20:59 11/11/18 08:11 Fentanyl (Duragesic) 1 patch Q72H TDERMAL 11/09/18 18:00 11/16/18 17:59 11/09/18 18:12 Heparin Sodium (Porcine) (Heparin 5000 units/ml) 5,000 units EVERY 12 HOURS SUBQ 11/10/18 09:00 12/10/18 08:59 11/11/18 08:26 Iopamidol (Isovue-300 100ml) 100 ml NOW PRN INJ Radiology Procedure 11/10/18 15:45 11/12/18 15:44 Levetiracetam (Keppra) 1,000 mg BEDTIME ORAL 11/09/18 21:00 12/09/18 20:59 11/10/18 20:29 Lorazepam (Ativan) 1 mg Q6H PRN GT For Anxiety 11/08/18 23:45 11/15/18 23:44 11/10/18 12:08 Miscellaneous Medication (fentaNYL Destruction) 1 ea Q72H MISC 11/12/18 17:59 12/12/18 17:58 Morphine Sulfate (Morphine 10mg/ 5ml Oral Soln) 5 mg Q4H PRN GT For Pain 11/09/18 15:00 12/08/18 23:29 11/11/18 03:28 Quetiapine Fumarate (SEROquel) 25 mg Q6H PRN GT For Anxiety 11/09/18 15:00 12/09/18 14:59 11/11/18 08:11 Quetiapine Fumarate (SEROquel) 200 mg BEDTIME GT 11/09/18 21:00 12/09/18 20:59 11/10/18 20:29 Sodium Chloride 1,000 ml @ 75 mls/hr [id number] IV 11/08/18 23:30 12/08/18 23:29 11/10/18 15:30 Vancomycin HCl (Vanco rx to dose) 1 ea DAILY PRN MISC Per rx protocol 11/09/18 17:15 12/09/18 17:14 Vancomycin HCl/ Dextrose 275 ml @ 183.333 mls/hr Q12HR@0800,2000 IVPB 11/09/18 20:00 11/14/18 19:59 11/11/18 08:56 Vern López MD Nov 11, 2018 10:54
--- NOTE | 2018-11-11 11:15 | NUR ---
CT A/P WITH REPEATED.
--- NOTE | 2018-11-11 11:24 | NUR ---
RD ASSESSMENT & RECOMMENDATIONS SEE CARE ACTIVITY FOR COMPLETE ASSESSMENT DAILY ESTIMATED NEEDS: Needs based on wound/ 52kg 30-35 kcals/kg 9372-4330 total kcals 1.5-2.0 g protein/kg 78-104 g total protein 25-30 mL/kg 4022-9349 total fluid mLs NUTRITION DIAGNOSIS: * Increased kcal/prot/micronutrients needs R/T wound healing as evidenced by pt admitted w/ full thickness wound at R buttocks, oozing purulent exudate with trace amt of slough, tunneling clockwise. * Swallowing difficulty R/T dysphagia, h/o neurologic disorder as evidenced by PEG dep. CURRENT TF:Jevity 1.2 @ 45ml/hr x 24 hrs ENTERAL NUTRITION RECOMMENDATIONS: Jevity 1.2 @ 55ml/hr x 24 hrs + Prosource 1pkt daily to provide 1320ml, 1584kcal, 73g + 11g prot, 1065ml free water * Rec to increase goal rate to 55ml/hr x 24 hrs * Add Prosource 1pkt daily to meet increased protein needs * HOB over 30 degrees/ water flush per MD ADDITIONAL RECOMMENDATIONS: * CALIBRATED BEDSCALE WT FOR ACCURATE CBW -> bedscale reads 1kg * Wound healing: add Vit C 500mg BID : add ZnSO4 220mg QD x 10 days : add Joe 1pkt BID * Monitor lytes daily, replete as needed (K low, check phos and mag)
[2018-11-11] MEDS: LORazepam 1mg tab GT PRN (15:37)
--- NOTE | 2018-11-11 15:37 | Diagnostic Imaging Report ---
Indication: Abdominal pain. Assess for abscess Technique: CT of the abdomen and pelvis utilizing automated exposure control with intravenous contrast. Venous scanning performed. Axial, sagittal and coronal reformats presented. CT dose: Total DLP 1024.08 mGycm; CTDI vol 18.4 mGy Comparison: None Findings: Bibasilar airspace opacities are noted, right greater than left. Findings may be related to dependent atelectasis. Areas of pneumonia or aspiration are not excluded. Heart size within normal limits. No pericardial effusion. Breast tissue appears grossly symmetric. Hepatic contour is smooth. There is some focal low attenuation along the falciform ligament, likely focal fatty infiltration. Gallbladder is unremarkable, without CT evident gallstones or pericholecystic inflammaory changes. No biliary ductal dilatation. Spleen, adrenal glands and pancreas unremarkable. Kidneys enhance symmetrically. No urinary tract stone or hydronephrosis identified. Bladder is decompressed. Apparent bladder wall thickening likely related to underdistention. Uterus and adnexa are grossly unremarkable for patient's age. A gastrostomy tube is noted in place. There is no fluid collection or other complication along the subcutaneous tract of the gastrostomy tube. There is no evidence of small bowel obstruction. The appendix is normal in caliber. There are no periappendiceal inflammatory changes. There is dense stool noted within the rectum. There is rectal wall thickening and some presacral edema suggesting fecal impaction with possible developing stercoral colitis. There is no free intraperitoneal air or fluid. Abdominal aorta is normal in caliber. There is mild skin thickening and soft tissue infiltration involving the skin overlying the right aspect of the lower sacrum. Possibility of a decubitus ulcer is not excluded and correlation with physical exam is recommended. No bony changes in the underlying sacrum to suggest osteomyelitis. No acute fracture. No subcutaneous well-circumscribed fluid collection to suggest abscess. IMPRESSION: * Rectal fecal impaction with possible developing stercoral colitis. * Normal appendix. No evidence of small bowel obstruction. * Gastrostomy tube in place. * Skin thickening and soft tissue infiltration overlying the right aspect of the lower sacrum raising question for decubitus ulcer. Correlation with physical exam is recommended. No bony changes in the underlying sacrum to suggest osteomyelitis. No subcutaneous fluid collection to suggest abscess. * Basilar airspace opacities, right greater than left. Findings may be related to subsegmental atelectasis. Pneumonia or aspiration not excluded. * Apparent bladder wall thickening likely related to underdistention. Correlation with urinalysis recommended to exclude cystitis. Additional incidental findings as above. The CT scanner at [facility] is accredited by the [employer] and the scans are performed using protocols designed to limit radiation exposure to as low as reasonably achievable to attain images of sufficient resolution adequate for diagnostic evaluation.
--- NOTE | 2018-11-11 17:21 | Surgery Progress Note ---
Surgery Progress Note Subjective Additional Comments no acute events CT noted exam unchanged Objective Last 24 Hour Vital Signs Date Time Temp Pulse Resp B/P (MAP) Pulse Ox O2 Delivery O2 Flow Rate FiO2 11/11/18 16:03 102.1 11/11/18 16:00 103.3 113 39 114/61 (78) 98 11/11/18 12:00 102.7 98 21 108/62 (77) 99 11/11/18 09:00 Nasal Cannula 2.0 11/11/18 08:29 95 Nasal Cannula 2.0 28 11/11/18 08:29 87 18 95 Nasal Cannula 2.0 28 11/11/18 08:00 101.1 69 19 100/59 (73) 99 11/11/18 05:32 101.8 11/11/18 04:00 91 22 133/71 (91) 97 11/11/18 00:07 100.0 11/11/18 00:00 79 22 113/64 (80) 98 11/10/18 21:18 Nasal Cannula 2.0 11/10/18 20:20 93 20 96 Nasal Cannula 2.0 28 11/10/18 20:20 96 Nasal Cannula 2.0 28 11/10/18 20:00 102.2 93 26 109/72 (84) 97 I&O Intake and Output 11/10/18 11/11/18 19:00 07:00 Intake Total 540 ml 1095.000 ml Balance 540 ml 1095.000 ml Intake Free Water 60 ml IV Total 855.000 ml Tube Feeding 540 ml 180 ml # Voids 5 2 # Bowel Movements 1 Dressing: saturated Wound: other Drains: other Cardiovascular: RSR Respiratory: decreased breath sounds Abdomen: soft, present bowel sounds, non-distended Extremities: no cyanosis, other Laboratory Tests Test 11/11/18 06:17 White Blood Count 10.7 K/UL (4.8-10.8) Red Blood Count 3.51 M/UL (4.20-5.40) L Hemoglobin 11.5 G/DL (12.0-16.0) L Hematocrit 34.0 % (37.0-47.0) L Mean Corpuscular Volume 97 FL (80-99) Mean Corpuscular Hemoglobin 32.7 PG (27.0-31.0) H Mean Corpuscular Hemoglobin Concent 33.8 G/DL (32.0-36.0) Red Cell Distribution Width 12.0 % (11.6-14.8) Platelet Count 212 K/UL (150-450) Mean Platelet Volume 7.2 FL (6.5-10.1) Neutrophils (%) (Auto) 84.8 % (45.0-75.0) H Lymphocytes (%) (Auto) 8.2 % (20.0-45.0) L Monocytes (%) (Auto) 6.4 % (1.0-10.0) Eosinophils (%) (Auto) 0.0 % (0.0-3.0) Basophils (%) (Auto) 0.7 % (0.0-2.0) Erythrocyte Sedimentation Rate 61 MM/HR (0-20) H Sodium Level 144 MMOL/L (136-145) Potassium Level 2.7 MMOL/L (3.5-5.1) *L Chloride Level 111 MMOL/L (98-107) H Carbon Dioxide Level 21 MMOL/L (21-32) Anion Gap 12 mmol/L (5-15) Blood Urea Nitrogen 23 mg/dL (7-18) H Creatinine 0.8 MG/DL (0.55-1.30) Estimat Glomerular Filtration Rate > 60 mL/min (>60) Glucose Level 123 MG/DL (74-106) H Calcium Level 8.9 MG/DL (8.5-10.1) Total Bilirubin 0.4 MG/DL (0.2-1.0) Direct Bilirubin < 0.1 MG/DL (0.0-0.3) Aspartate Amino Transf (AST/SGOT) 67 U/L (15-37) H Alanine Aminotransferase (ALT/SGPT) 33 U/L (12-78) Alkaline Phosphatase 76 U/L (46-116) C-Reactive Protein, Quantitative 1.6 mg/dL (0.00-0.90) H Total Protein 7.1 G/DL (6.4-8.2) Albumin 3.4 G/DL (3.4-5.0) Vancomycin Level Trough 13.4 ug/mL (5.0-12.0) H Plan Problems: (1) Decubitus skin ulcer (2) Cellulitis of buttock, right Assessment & Plan: Full thickness pressure injury R buttocks oozing purulent exudate with trace amt of slough.(L)0.7cm x (W)1.2cm x (D)2.1cm,Tunneling clockwise @11o'clock by 3.3cm.Periwound is indurated with hyperpigmentation. Historical scars noted to L buttocks. Given Fevers and still drainage of wound will obtain CT pelvis to ensure no deep pocket or tunneling abscess need to monitor for incontinence and change dressings often to ensure clean CT with * Skin thickening and soft tissue infiltration overlying the right aspect of the lower sacrum raising question for decubitus ulcer. Correlation with physical exam is recommended. No bony changes in the underlying sacrum to suggest osteomyelitis. No subcutaneous fluid collection to suggest abscess. needs bowel regimen will order cont with wound care no planned surgery at this time will cont to monitor and help heal wound Ruddy Elias Nov 11, 2018 17:21
[2018-11-11] MEDS ORDERED: Milk of Magnesia 30ml Ud ORAL SCH (17:30)
[2018-11-11] MEDS ORDERED: Milk of Magnesia 30ml Ud ORAL PRN (17:30)
[2018-11-11] MEDS ORDERED: Fleet's Enema 133ml RECTAL SCH (17:30)
--- NOTE | 2018-11-11 19:56 | NUR ---
HAND-OFF: Report given to Briseida BARRERA.
--- NOTE | 2018-11-11 19:57 | NUR ---
NURSE NOTES: Patient received sleeping in bed, breathing with nasal cannula on at 2L/min. G-tube feeding running at 45cc/hr. Dressing is c/d/i. Bed locked in lowest position, HOB elevated 35 degrees, bed alarm on. Call light placed within reach, will continue to monitor. Pt observed with some diaphoresis. Temp taken at 101.8. will continue to monitor and administer tylenol when it can be administered. Per report patient has been running a fever anywhere from 101 to 103 degrees and is aware.
--- NOTE | 2018-11-11 20:10 | NUR ---
CASE MANAGEMENT: REVIEW SI: SEIZURE DISORDER . CELLULITIS/ULCER RIGHT BUTTOCK . T 103.3 HR 113 RR 39 BP 100/59 SAT 95% NC/2L H/H 11.5/34.0 ESR 61 K [address] ABD/PEL PENDING IS: VANCO IV Q12HR IVF @75ML/HR FENTANYL PATCH Q72HR CEFEPIME IV Q12HR KEPPRA PO QHS HEPARIN SUBQ Q12HR K-DUR 40MEQU PO X1 BARIUM SULFATE PO FOR RADIOLOGY X1 FLEET ENEMA X1 MED/SURG UNIT STATUS DCP: PATIENT IS FROM HOME
[2018-11-11] MEDS: QUEtiapine 200mg tab GT SCH (20:25)
--- NOTE | 2018-11-11 21:30 | Progress Note ---
DATE: 11/11/2018 SUBJECTIVE: The patient is doing better today. Not yelling or screaming. Less agitated. Eyes are open. She ____ responding to internal stimuli . MENTAL STATUS EXAMINATION: The patient is alert, confused, disoriented. Mood is neutral. Affect is flat. Eyes are open. Thought process, disorganized. Thought content, no suicidal or homicidal ideations. ASSESSMENT: 1. Cognitive impairment. 2. Agitation is improved. PLAN: We will continue the Seroquel. Continue the Ativan. Provide the patient with reality orientation. Raghu Charles M.D. DR: BRIANA JOB#: [id number] CC:
[2018-11-12] VITALS: BP 126/61
--- NOTE | 2018-11-12 00:15 | Progress Note ---
DATE: 11/11/2018 SUBJECTIVE: The patient is much more calm, less agitated, less screaming today. The patient had an imaging study that revealed no signs of osteomyelitis however there is impaction and possible early cellulitis. PHYSICAL EXAMINATION: VITAL SIGNS: T-max 102, blood pressure 100/59, pulse 69, respiratory rate 19. LUNGS: Diminished breath sounds. CARDIAC: Regular rhythm and rate. Normal S1, S2. ABDOMEN: Soft. G-tube intact. EXTREMITIES: No edema. LABORATORY DATA: Sodium 144, potassium 2.7, bicarb 21, BUN 22, creatinine 0.8. Liver function studies within normal limits. White count 10.7, hemoglobin 11.5. Sedimentation rate 61. IMPRESSION: 1. Probable aspiration pneumonia. 2. Fecal impaction. 3. Decubitus with cellulitis. 4. Dysphagia with G-tube. 5. Advance neuromuscular dysfunction. 6. Hypokalemia. PLAN: 1. Antimicrobials per Infectious Diseases clinical education consultant. 2. Bowel regimen with disimpaction. 3. Skin care. 4. G-tube nutrition. 5. Antipyretics. 6. Followup culture results. 7. Pain control and IV fluids adjusted. 8. Replace potassium. 9. Check magnesium. Mario Alberto Merlos M.D. DR: Paul JOB#: [id number] CC:
[2018-11-12] MEDS: 1/2NS w/KCl 20mEq 1000ml 1,000 ML IV SCH ×3 (00:42→14:17)
[2018-11-12] MEDS: Albuterol/Ipratropium 3ml neb HHN SCH ×4 (01:29→19:42)
[2018-11-12 04:00] VITALS: BP 133/61
[2018-11-12] MEDS: Morphine Sulfate 10mg/5ml Oral Soln ud GT PRN ×2 (05:44→14:12)
[2018-11-12] MEDS: Albuterol/Ipratropium 3ml neb HHN PRN (05:56)
--- NOTE | 2018-11-12 07:15 | NUR ---
NURSE NOTES: PER BOMBSIGHT SPECIALIST RN, RECTAL DISIMPACTION NOT DONE DUE TO DIARRHEA.
--- NOTE | 2018-11-12 07:59 | NUR ---
HAND-OFF: Report given to Sebastián Cook RN.
[2018-11-12 08:00] VITALS: BP 132/53
[2018-11-12 08:09] LABS: ANION GAP 11 mmol/L (5-15); BLOOD UREA NITROGEN 20 mg/dL (7-18); CALCIUM 8.2 MG/DL (8.5-10.1); CARBON DIOXIDE 23 MMOL/L (21-32); CHLORIDE 110 MMOL/L (98-107); CREATININE 0.7 MG/DL (0.55-1.30); SODIUM 144 MMOL/L (136-145)
[2018-11-12 08:10] LABS: POTASSIUM 2.5 MMOL/L (3.5-5.1)
[2018-11-12] MEDS: Vancomycin 1.25gm Premix IVPB SCH ×2 (08:20→20:32)
[2018-11-12] MEDS: Heparin 5000 units/ml inj SUBQ SCH ×2 (08:28→20:34)
--- NOTE | 2018-11-12 08:30 | NUR ---
NURSE NOTES: PT CALM, RESTING IN BED, NONVERBAL. NO S/S OF PAIN USING FLACC PAIN SCALE. PT IN HIGH SCOTT'S POSITION WITH HOB ELEVATED. SUCTION SET UP AT BEDSIDE. THIN SECRETIONS SUCTIONED, NO COUGHING NOTED. BED IN LOWEST POSITION WITH HOB ELEVATED. IN NO APPARENT DISTRESS AT THIS TIME. WILL CONTINUE TO MONITOR.
[2018-11-12] MEDS: Cefepime HCl 1 GM in D5W 55 ML IVPB SCH (09:55)
--- NOTE | 2018-11-12 11:16 | Surgery Progress Note ---
Surgery Progress Note Subjective Symptoms: improved Objective Last 24 Hour Vital Signs Date Time Temp Pulse Resp B/P (MAP) Pulse Ox O2 Delivery O2 Flow Rate FiO2 11/12/18 09:00 Nasal Cannula 2.0 11/12/18 08:00 96.6 78 19 132/53 (79) 97 11/12/18 07:48 96 Nasal Cannula 2.0 28 11/12/18 07:48 Nasal Cannula 11/12/18 07:48 Nasal Cannula 2.0 11/12/18 06:08 106 26 96 Nasal Cannula 2.0 28 11/12/18 05:58 96 26 94 Nasal Cannula 2.0 28 11/12/18 05:55 102.7 11/12/18 04:00 101.6 106 24 133/61 (85) 96 11/12/18 01:41 89 18 98 Nasal Cannula 2.0 28 11/12/18 01:33 70 20 95 Nasal Cannula 2.0 28 11/12/18 01:33 95 Nasal Cannula 2.0 28 11/12/18 01:30 70 22 95 Nasal Cannula 2.0 28 11/12/18 00:00 100.2 57 28 126/61 (82) 96 11/11/18 21:30 100.4 11/11/18 21:00 Nasal Cannula 2.0 11/11/18 20:00 102.0 58 33 116/64 (81) 97 11/11/18 16:00 103.3 113 39 114/61 (78) 98 11/11/18 12:00 102.7 98 21 108/62 (77) 99 I&O Intake and Output 11/11/18 11/12/18 18:59 06:59 Intake Total 450 ml Balance 450 ml Tube Feeding 450 ml # Voids 6 4 # Bowel Movements 2 Dressing: saturated Wound: other Drains: other Cardiovascular: RSR Respiratory: clear Abdomen: soft, present bowel sounds Extremities: no cyanosis Laboratory Tests Test 11/12/18 07:25 Sodium Level 144 MMOL/L (136-145) Potassium Level 2.5 MMOL/L (3.5-5.1) *L Chloride Level 110 MMOL/L (98-107) H Carbon Dioxide Level 23 MMOL/L (21-32) Anion Gap 11 mmol/L (5-15) Blood Urea Nitrogen 20 mg/dL (7-18) H Creatinine 0.7 MG/DL (0.55-1.30) Estimat Glomerular Filtration Rate > 60 mL/min (>60) Glucose Level 178 MG/DL (74-106) H Calcium Level 8.2 MG/DL (8.5-10.1) L Magnesium Level 1.8 MG/DL (1.8-2.4) Plan Problems: (1) Decubitus skin ulcer (2) Cellulitis of buttock, right Assessment & Plan: Full thickness pressure injury R buttocks oozing purulent exudate with trace amt of slough.(L)0.7cm x (W)1.2cm x (D)2.1cm,Tunneling clockwise @11o'clock by 3.3cm.Periwound is indurated with hyperpigmentation. Historical scars noted to L buttocks. Given Fevers and still drainage of wound will obtain CT pelvis to ensure no deep pocket or tunneling abscess need to monitor for incontinence and change dressings often to ensure clean CT with * Skin thickening and soft tissue infiltration overlying the right aspect of the lower sacrum raising question for decubitus ulcer. Correlation with physical exam is recommended. No bony changes in the underlying sacrum to suggest osteomyelitis. No subcutaneous fluid collection to suggest abscess. needs bowel regimen will order cont with wound care no planned surgery at this time will cont to monitor and help heal wound Ruddy Elias Nov 12, 2018 11:16
[2018-11-12 12:00] VITALS: BP 117/66
[2018-11-12 16:00] VITALS: BP 120/73
[2018-11-12] MEDS: fentaNYL Destruction MISC SCH (18:03)
--- NOTE | 2018-11-12 19:30 | NUR ---
HAND-OFF: Report given to Yue GRACE RN.
--- NOTE | 2018-11-12 19:31 | NUR ---
NURSE NOTES: Patient received sleeping in bed, breathing with nasal cannula on at 2L/min. G-tube feeding running at 45cc/hr. Dressing is c/d/i. Bed locked in lowest position, HOB elevated 35 degrees, bed alarm on. Call light placed within reach, will continue to monitor. Pt observed with some diaphoresis. will continue to monitor
[2018-11-12 20:20] VITALS: BP 103/50
[2018-11-12] MEDS: QUEtiapine 200mg tab GT SCH (20:32)
--- NOTE | 2018-11-12 21:45 | Progress Note ---
DATE: 11/12/2018 INTERNAL MEDICINE PROGRESS NOTE SUBJECTIVE: The patient is defervesced today, less congested. No pain. Wound culture is positive for Proteus. PHYSICAL EXAMINATION: LUNGS: Bilateral breath sounds. HEART: Regular rhythm and rate. Normal S1, S2. ABDOMEN: Soft. Wound site with dressing in place. EXTREMITIES: Trace dependent edema. Severe hyperextension and contractures of the extremities. LABORATORY DATA: Labs today notable for magnesium 1.8 and potassium 2.5. IMPRESSION: 1. Cellulitis and sacral wound infection with Proteus mirabilis. 2. Aspiration and possible pneumonia. 3. Anemia. 4. Protein-calorie malnutrition. 5. Hypokalemia. PLAN: 1. Potassium replacement. 2. Taper antimicrobials. 3. Wound care. 4. Adjust IV fluids. 5. Pain control. Mario Alberto Merlos M.D. DR: DWIGHT JOB#: [id number] CC:
[2018-11-12] MEDS: ceFAZolin sod 1 GM in D5W 55 ML IVPB SCH (22:01)
[2018-11-13] VITALS: BP 103/55
[2018-11-13] MEDS: Albuterol/Ipratropium 3ml neb HHN SCH ×4 (01:30→19:42)
[2018-11-13 04:00] VITALS: BP 110/55
[2018-11-13] MEDS: Morphine Sulfate 10mg/5ml Oral Soln ud GT PRN ×2 (05:21→15:36)
[2018-11-13] MEDS: 1/2NS w/KCl 20mEq 1000ml 1,000 ML IV SCH (05:22)
[2018-11-13] MEDS: ceFAZolin sod 1 GM in D5W 55 ML IVPB SCH ×3 (05:22→22:11)
--- NOTE | 2018-11-13 06:26 | NUR ---
NURSE NOTES: Stopped GTube feed as there is resistance. Patient also had emesis, about 120-150 ml.
[2018-11-13 08:00] VITALS: BP 108/70
--- NOTE | 2018-11-13 08:00 | NUR ---
HAND-OFF: Report given to HOLLY Lowery
[2018-11-13 08:13] LABS: BASOPHILS % (AUTO) 0.4 % (0.0-2.0); EOSINOPHILS % (AUTO) 0.1 % (0.0-3.0); HEMATOCRIT 33.2 % (37.0-47.0); HEMOGLOBIN 11.4 G/DL (12.0-16.0); LYMPHOCYTES % (AUTO) 13.1 % (20.0-45.0); MEAN CORPUSCULAR VOLUME 95 FL (80-99); MONOCYTES % (AUTO) 7.6 % (1.0-10.0); NEUTROPHILS % (AUTO) 78.8 % (45.0-75.0); PLATELET COUNT 164 K/UL (150-450); RED BLOOD COUNT 3.47 M/UL (4.20-5.40); RED CELL DISTRIBUTION WIDTH 12.1 % (11.6-14.8); WHITE BLOOD COUNT 9.5 K/UL (4.8-10.8)
[2018-11-13 08:17] LABS: ALANINE AMINOTRANSFERASE 40 U/L (12-78); ALBUMIN 3.1 G/DL (3.4-5.0); ALBUMIN/GLOBULIN RATIO 0.9 (1.0-2.7); ALKALINE PHOSPHATASE 62 U/L (46-116); ANION GAP 7 mmol/L (5-15); ASPARTATE AMINO TRANSFERASE 61 U/L (15-37); BILIRUBIN,TOTAL 0.4 MG/DL (0.2-1.0); BLOOD UREA NITROGEN 18 mg/dL (7-18); CALCIUM 8.4 MG/DL (8.5-10.1); CARBON DIOXIDE 29 MMOL/L (21-32); CHLORIDE 109 MMOL/L (98-107); CREATININE 0.5 MG/DL (0.55-1.30); SODIUM 144 MMOL/L (136-145)
[2018-11-13 08:19] LABS: POTASSIUM 2.6 MMOL/L (3.5-5.1)
[2018-11-13] MEDS: Vancomycin 1.25gm Premix IVPB SCH (08:20)
[2018-11-13] MEDS: Heparin 5000 units/ml inj SUBQ SCH ×2 (08:37→22:10)
--- NOTE | 2018-11-13 10:22 | NUR ---
NURSE NOTES: PT RESTING IN BED, RR 30. PT WITH GTUBE RESIDUAL 200CC AT 0830HRS. RN HELD GTUBE FEEDING, AND UPON REASSESSMENT, PT STILL HAS 200CC RESIDUAL. PER STEAM CLEANING MACHINE OPERATOR RN, PT HAD 1 EMESIS ESTIMATING 150CC. PT ALSO WITH CRITICAL VALUE POTASSIUM 2.6 TODAY. RN LEFT MESSAGE FOR DR RICE REGARDING CHANGE IN STATUS.
--- NOTE | 2018-11-13 11:05 | Infectious Diseases Prog Note ---
Assessment/Plan Assessment/Plan IMPRESSION: Sepsis Positive blood culture, likely contamination Seizures Disorder Infected right hip pressure ulcer Quadriplegia Neurodegenerative disorder. Hypokalemia Fecal impaction RECOMMENDATION: We will continue with vancomycin and cefepime. Repeat UA & UC Subjective ROS Limited/Unobtainable: Yes Constitutional: Reports: fever Allergies: Coded Allergies: No Known Allergies (Unverified , 11/08/18) Objective Vital Signs Last 24 Hour Vital Signs Date Time Temp Pulse Resp B/P (MAP) Pulse Ox O2 Delivery O2 Flow Rate FiO2 11/13/18 08:00 98.1 107 30 108/70 (83) 100 11/13/18 08:00 101 28 99 Nasal Cannula 2.0 28 11/13/18 07:49 90 11/13/18 07:49 134 40 90 Room Air 21 11/13/18 04:00 100.4 81 30 110/55 (73) 95 11/13/18 01:32 88 20 99 Nasal Cannula 2.0 28 11/13/18 01:20 85 20 94 Room Air 21 11/13/18 00:00 101.7 81 40 103/55 (71) 97 11/12/18 21:02 101.8 11/12/18 21:00 Nasal Cannula 2.0 11/12/18 20:20 102.2 107 58 103/50 (67) 97 11/12/18 20:00 97 Nasal Cannula 2.0 28 11/12/18 19:28 90 30 99 Nasal Cannula 2.0 28 11/12/18 19:20 80 30 98 Nasal Cannula 2.0 28 11/12/18 16:00 98.3 108 120/73 (89) 11/12/18 12:30 96 22 97 Nasal Cannula 2.0 28 11/12/18 12:21 92 20 95 Nasal Cannula 2.0 28 11/12/18 12:00 98.4 67 18 117/66 (83) 95 Height (Feet): 5 Height (Inches): 3.00 Weight (Pounds): 125 HEENT: mucous membranes moist Respiratory/Chest: lungs clear Cardiovascular: tachycardia Abdomen: soft, non tender, other - GT feeding Extremities: other - edema Neurologic/Psychiatric: aphasia, other - opens eyes Laboratory Tests Test 11/13/18 07:00 White Blood Count 9.5 K/UL (4.8-10.8) Red Blood Count 3.47 M/UL (4.20-5.40) L Hemoglobin 11.4 G/DL (12.0-16.0) L Hematocrit 33.2 % (37.0-47.0) L Mean Corpuscular Volume 95 FL (80-99) Mean Corpuscular Hemoglobin 32.7 PG (27.0-31.0) H Mean Corpuscular Hemoglobin Concent 34.3 G/DL (32.0-36.0) Red Cell Distribution Width 12.1 % (11.6-14.8) Platelet Count 164 K/UL (150-450) Mean Platelet Volume 7.0 FL (6.5-10.1) Neutrophils (%) (Auto) 78.8 % (45.0-75.0) H Lymphocytes (%) (Auto) 13.1 % (20.0-45.0) L Monocytes (%) (Auto) 7.6 % (1.0-10.0) Eosinophils (%) (Auto) 0.1 % (0.0-3.0) Basophils (%) (Auto) 0.4 % (0.0-2.0) Sodium Level 144 MMOL/L (136-145) Potassium Level 2.6 MMOL/L (3.5-5.1) *L Chloride Level 109 MMOL/L (98-107) H Carbon Dioxide Level 29 MMOL/L (21-32) Anion Gap 7 mmol/L (5-15) Blood Urea Nitrogen 18 mg/dL (7-18) Creatinine 0.5 MG/DL (0.55-1.30) L Estimat Glomerular Filtration Rate > 60 mL/min (>60) Glucose Level 122 MG/DL (74-106) H Calcium Level 8.4 MG/DL (8.5-10.1) L Total Bilirubin 0.4 MG/DL (0.2-1.0) Aspartate Amino Transf (AST/SGOT) 61 U/L (15-37) H Alanine Aminotransferase (ALT/SGPT) 40 U/L (12-78) Alkaline Phosphatase 62 U/L (46-116) Total Protein 6.4 G/DL (6.4-8.2) Albumin 3.1 G/DL (3.4-5.0) L Globulin 3.3 g/dL Albumin/Globulin Ratio 0.9 (1.0-2.7) L Current Medications Medications (Trade) Dose Ordered Sig/Alex Route PRN Reason Start Time Stop Time Status Last Admin Dose Admin Acetaminophen (Tylenol) 650 mg Q4H PRN ORAL Mild Pain/Temp > 100.5 11/09/18 11:30 12/09/18 11:29 11/12/18 20:32 Albuterol/ Ipratropium (Albuterol/ Ipratropium) 3 ml Q6H PRN HHN Shortness of Breath 11/10/18 14:00 11/15/18 13:59 11/12/18 05:56 Albuterol/ Ipratropium (Albuterol/ Ipratropium) 3 ml Q6HRT HHN 11/12/18 01:00 11/17/18 00:59 11/13/18 07:49 Cefazolin Sodium 1 gm/Dextrose 55 ml @ 110 mls/hr Q8HR IVPB 11/12/18 22:00 11/19/18 21:59 11/13/18 05:22 Fentanyl (Duragesic) 1 patch Q72H TDERMAL 11/09/18 18:00 11/16/18 17:59 11/12/18 18:03 Heparin Sodium (Porcine) (Heparin 5000 units/ml) 5,000 units EVERY 12 HOURS SUBQ 11/10/18 09:00 12/10/18 08:59 11/13/18 08:37 Levetiracetam (Keppra) 1,000 mg BEDTIME ORAL 11/09/18 21:00 12/09/18 20:59 11/12/18 20:32 Lorazepam (Ativan) 1 mg Q6H PRN GT For Anxiety 11/08/18 23:45 11/15/18 23:44 11/11/18 15:37 Magnesium Hydroxide (Mom) 30 ml DAILYPRN PRN ORAL Constipation 11/11/18 17:30 12/11/18 17:29 Miscellaneous Medication (fentaNYL Destruction) 1 ea Q72H MISC 11/12/18 17:59 12/12/18 17:58 11/12/18 18:03 Morphine Sulfate (Morphine 10mg/ 5ml Oral Soln) 5 mg Q4H PRN GT For Pain 11/09/18 15:00 12/08/18 23:29 11/13/18 05:21 Potassium Chloride 100 ml @ 100 mls/hr Q1H IVPB 11/13/18 11:00 11/13/18 14:59 Quetiapine Fumarate (SEROquel) 25 mg Q6H PRN GT For Anxiety 11/09/18 15:00 12/09/18 14:59 11/11/18 08:11 Quetiapine Fumarate (SEROquel) 200 mg BEDTIME GT 11/11/18 21:00 12/09/18 20:59 11/12/18 20:32 Sodium 1,000 ml @ 75 mls/hr [id number] IV 11/11/18 23:00 12/11/18 22:59 11/13/18 05:22 Vern López MD Nov 13, 2018 11:05
[2018-11-13 11:59] VITALS: BP 117/68
--- NOTE | 2018-11-13 12:26 | Surgery Progress Note ---
Surgery Progress Note Subjective Additional Comments no acute events resting comfortable labs noted. electrolytes being replaced wound dressings saturated Objective Last 24 Hour Vital Signs Date Time Temp Pulse Resp B/P (MAP) Pulse Ox O2 Delivery O2 Flow Rate FiO2 11/13/18 11:59 100.2 81 32 117/68 (84) 98 11/13/18 08:00 98.1 107 30 108/70 (83) 100 11/13/18 08:00 101 28 99 Nasal Cannula 2.0 28 11/13/18 07:49 90 11/13/18 07:49 134 40 90 Room Air 21 11/13/18 04:00 100.4 81 30 110/55 (73) 95 11/13/18 01:32 88 20 99 Nasal Cannula 2.0 28 11/13/18 01:20 85 20 94 Room Air 21 11/13/18 00:00 101.7 81 40 103/55 (71) 97 11/12/18 21:02 101.8 11/12/18 21:00 Nasal Cannula 2.0 11/12/18 20:20 102.2 107 58 103/50 (67) 97 11/12/18 20:00 97 Nasal Cannula 2.0 28 11/12/18 19:28 90 30 99 Nasal Cannula 2.0 28 11/12/18 19:20 80 30 98 Nasal Cannula 2.0 28 11/12/18 16:00 98.3 108 120/73 (89) 11/12/18 12:30 96 22 97 Nasal Cannula 2.0 28 I&O Intake and Output 11/12/18 11/13/18 19:00 07:00 Intake Total 1440.000 ml 75 ml Output Total 120 ml Balance 1440.000 ml -45 ml Intake Free Water 90 ml IV Total 855.000 ml 75 ml Tube Feeding 495 ml Output Emesis 120 ml # Voids 3 Dressing: saturated Wound: other Drains: other Cardiovascular: RSR Respiratory: clear Abdomen: soft, present bowel sounds, non-distended Extremities: no cyanosis, other Laboratory Tests Test 11/13/18 07:00 White Blood Count 9.5 K/UL (4.8-10.8) Red Blood Count 3.47 M/UL (4.20-5.40) L Hemoglobin 11.4 G/DL (12.0-16.0) L Hematocrit 33.2 % (37.0-47.0) L Mean Corpuscular Volume 95 FL (80-99) Mean Corpuscular Hemoglobin 32.7 PG (27.0-31.0) H Mean Corpuscular Hemoglobin Concent 34.3 G/DL (32.0-36.0) Red Cell Distribution Width 12.1 % (11.6-14.8) Platelet Count 164 K/UL (150-450) Mean Platelet Volume 7.0 FL (6.5-10.1) Neutrophils (%) (Auto) 78.8 % (45.0-75.0) H Lymphocytes (%) (Auto) 13.1 % (20.0-45.0) L Monocytes (%) (Auto) 7.6 % (1.0-10.0) Eosinophils (%) (Auto) 0.1 % (0.0-3.0) Basophils (%) (Auto) 0.4 % (0.0-2.0) Sodium Level 144 MMOL/L (136-145) Potassium Level 2.6 MMOL/L (3.5-5.1) *L Chloride Level 109 MMOL/L (98-107) H Carbon Dioxide Level 29 MMOL/L (21-32) Anion Gap 7 mmol/L (5-15) Blood Urea Nitrogen 18 mg/dL (7-18) Creatinine 0.5 MG/DL (0.55-1.30) L Estimat Glomerular Filtration Rate > 60 mL/min (>60) Glucose Level 122 MG/DL (74-106) H Calcium Level 8.4 MG/DL (8.5-10.1) L Total Bilirubin 0.4 MG/DL (0.2-1.0) Aspartate Amino Transf (AST/SGOT) 61 U/L (15-37) H Alanine Aminotransferase (ALT/SGPT) 40 U/L (12-78) Alkaline Phosphatase 62 U/L (46-116) Total Protein 6.4 G/DL (6.4-8.2) Albumin 3.1 G/DL (3.4-5.0) L Globulin 3.3 g/dL Albumin/Globulin Ratio 0.9 (1.0-2.7) L Plan Problems: (1) Decubitus skin ulcer (2) Cellulitis of buttock, right Assessment & Plan: Full thickness pressure injury R buttocks oozing purulent exudate with trace amt of slough.(L)0.7cm x (W)1.2cm x (D)2.1cm,Tunneling clockwise @11o'clock by 3.3cm.Periwound is indurated with hyperpigmentation. Historical scars noted to L buttocks. Given Fevers and still drainage of wound will obtain CT pelvis to ensure no deep pocket or tunneling abscess need to monitor for incontinence and change dressings often to ensure clean CT with * Skin thickening and soft tissue infiltration overlying the right aspect of the lower sacrum raising question for decubitus ulcer. Correlation with physical exam is recommended. No bony changes in the underlying sacrum to suggest osteomyelitis. No subcutaneous fluid collection to suggest abscess. needs bowel regimen will order cont with wound care no planned surgery at this time will cont to monitor and help heal wound Ruddy Elias Nov 13, 2018 12:26
[2018-11-13] MEDS: Albuterol/Ipratropium 3ml neb HHN PRN (15:11)
--- NOTE | 2018-11-13 15:52 | NUR ---
NURSE NOTES: PT WITH TEMPERATURE 100.6, PERSPIRATING, AND RESTLESS. RN APPLIED ICE PACKS, ADMINISTERED PRN TYLENOL, MOM AND MORPHINE ORDERED. PT'S GTUBE RESIDUAL IS 0 CC. WILL CONTINUE TO MONITOR.
[2018-11-13 16:00] VITALS: BP 130/71
--- NOTE | 2018-11-13 17:54 | NUR ---
NURSE NOTES: DR RICE WAS AT BEDSIDE AND MADE AWARE OF RECURRING FEVER. NO GTUBE RESIDUAL. PER DR RICE, OK TO RESTART GTUBE FEEDINGS. PT CONTINUES TO HAVE FEVER, 101.2, RN LEFT MESSAGE FOR DR Radha GARCIA. RN GAVE FRESH ICE PACKS.
--- NOTE | 2018-11-13 19:27 | NUR ---
NURSE NOTES: Patient received sleeping in bed, high fowlers position, nasal cannula on at 2L/min, RR 35/min. G-tube feeding running at 45cc/hr. Dressing is c/d/i. Bed locked in lowest position, HOB elevated 35 degrees, bed alarm on. Call light placed within reach, will continue to monitor. Pt observed with some diaphoresis, per report had a slight fever, has ice packs underneath armpits and cooling measures applied. will continue to monitor
--- NOTE | 2018-11-13 19:37 | NUR ---
HAND-OFF: Report given to Yue GRACE RN.
[2018-11-13 20:00] VITALS: BP 95/49
[2018-11-13] MEDS: QUEtiapine 200mg tab GT SCH (22:09)
[2018-11-14] VITALS: BP 108/70
[2018-11-14] MEDS: Albuterol/Ipratropium 3ml neb HHN SCH ×4 (00:32→19:52)
[2018-11-14 00:37] LABS: APPEARANCE,URINE CLEAR; BILIRUBIN, URINE NEGATIVE (NEGATIVE); GLUCOSE, URINE (UA) NEGATIVE (NEGATIVE); KETONES,URINE 1+ (NEGATIVE); LEUKOCYTE ESTERASE ,URINE NEGATIVE (NEGATIVE); NITRITE,URINE NEGATIVE (NEGATIVE); PH,URINE 7 (4.5-8.0); PROTEIN,URINE 2+ (NEGATIVE); UROBILINOGEN,URINE NORMAL MG/DL (0.0-1.0)
[2018-11-14 00:39] LABS: COLOR,URINE YELLOW
--- NOTE | 2018-11-14 03:30 | Progress Note ---
DATE: 11/13/2018 INTERNAL MEDICINE PROGRESS NOTE SUBJECTIVE: The patient had episodes of increased G-tube residuals noted today. In addition, she still has episodes of fever and congestion. OBJECTIVE: VITAL SIGNS: T-max 102.2, blood pressure 108/70, heart rate 107, respiratory rate 20 to 40, and oxygen saturation on room air 90%. LUNGS: Coarse breath sounds and rhonchi. HEART: Regular rhythm and rate. Normal S1 and S2. ABDOMEN: Soft. G-tube intact. EXTREMITIES: No edema. Severe contractures. LABORATORY DATA: White count 9.5 and hemoglobin 11.4. Potassium 2.6, BUN 18, and creatinine 0.5. Albumin 3.1. Urinalysis with only 2 to 4 red cells and 0 to 2 white cells. Wound cultures with Proteus mirabilis. IMPRESSION: 1. Proteus mirabilis wound infection and cellulitis. 2. Aspiration pneumonia. 3. Mild protein-calorie malnutrition. 4. Neuromuscular degenerative disorder with severe debility. 5. Dysphagia with G-tube. 6. Hypokalemia. 7. Gastroparesis. PLAN: 1. Additional potassium replacement. 2. Antimicrobials per Infectious Disease guidance consultant. 3. Recheck chest x-ray. 4. Adjust intravenous fluids. 5. Wound and skin care. 6. Continue pain control. 7. Hold tube feedings until residuals improved. 8. Consider adding Reglan. Mario Alberto Merlos M.D. DR: NERI JOB#: [id number] CC:
[2018-11-14 04:00] VITALS: BP 108/60
[2018-11-14] MEDS: 1/2NS w/KCl 20mEq 1000ml 1,000 ML IV SCH ×2 (04:34→13:53)
[2018-11-14] MEDS: ceFAZolin sod 1 GM in D5W 55 ML IVPB SCH ×3 (05:20→22:20)
--- NOTE | 2018-11-14 07:27 | NUR ---
HAND-OFF: Report given to HOLLY Nur.
[2018-11-14 07:46] LABS: EOSINOPHILS % (AUTO) 0.2 % (0.0-3.0); HEMATOCRIT 34.4 % (37.0-47.0); HEMOGLOBIN 11.7 G/DL (12.0-16.0); LYMPHOCYTES % (AUTO) 12.3 % (20.0-45.0); MEAN CORPUSCULAR VOLUME 96 FL (80-99); MONOCYTES % (AUTO) 5.9 % (1.0-10.0); NEUTROPHILS % (AUTO) 80.7 % (45.0-75.0); PLATELET COUNT 164 K/UL (150-450); RED BLOOD COUNT 3.58 M/UL (4.20-5.40); RED CELL DISTRIBUTION WIDTH 12.2 % (11.6-14.8); WHITE BLOOD COUNT 9.6 K/UL (4.8-10.8)
[2018-11-14 08:00] VITALS: BP 115/64
--- NOTE | 2018-11-14 08:00 | NUR ---
NURSE NOTES: received pt in bed, bedridden, awake, non oriented, no verbal. Receives IVF through left upper chest access, no sign of infiltration noted. Receives Jevity 1.2 @ 45cc/hr. Dressing dry and intact at R buttock pressure injury, and on bilateral heels for prevention. Bed locked at the lowest position possible, call light within easy reach, siderails padded and up x3. Will continue to monitor and follow up with the plan of care.
[2018-11-14 08:01] LABS: ALANINE AMINOTRANSFERASE 42 U/L (12-78); ALBUMIN/GLOBULIN RATIO 0.9 (1.0-2.7); ALKALINE PHOSPHATASE 64 U/L (46-116); ANION GAP 7 mmol/L (5-15); ASPARTATE AMINO TRANSFERASE 82 U/L (15-37); BILIRUBIN,TOTAL 0.3 MG/DL (0.2-1.0); BLOOD UREA NITROGEN 19 mg/dL (7-18); CALCIUM 8.7 MG/DL (8.5-10.1); CARBON DIOXIDE 28 MMOL/L (21-32); CHLORIDE 108 MMOL/L (98-107); CREATININE 0.5 MG/DL (0.55-1.30); POTASSIUM 3.2 MMOL/L (3.5-5.1); SODIUM 143 MMOL/L (136-145)
[2018-11-14] MEDS: Heparin 5000 units/ml inj SUBQ SCH ×2 (08:45→22:21)
--- NOTE | 2018-11-14 11:03 | Infectious Diseases Prog Note ---
Assessment/Plan Assessment/Plan IMPRESSION: Sepsis Positive blood culture, likely contamination Seizures Disorder Infected right hip pressure ulcer Quadriplegia Neurodegenerative disorder. Hypokalemia Fecal impaction RECOMMENDATION: We will continue with vancomycin and cefepime. Subjective ROS Limited/Unobtainable: Yes Constitutional: Reports: other - since this morning; Denies: fever Allergies: Coded Allergies: No Known Allergies (Unverified , 11/08/18) Objective Vital Signs Last 24 Hour Vital Signs Date Time Temp Pulse Resp B/P (MAP) Pulse Ox O2 Delivery O2 Flow Rate FiO2 11/14/18 09:00 Nasal Cannula 2.0 11/14/18 08:08 96 22 100 Nasal Cannula 2.0 28 11/14/18 08:02 98 Nasal Cannula 2.0 28 11/14/18 08:00 98.2 80 24 115/64 (81) 99 11/14/18 07:57 71 18 98 Nasal Cannula 2.0 28 11/14/18 04:00 97.2 79 30 108/60 (76) 96 11/14/18 00:40 90 24 100 Nasal Cannula 2.0 28 11/14/18 00:32 97 22 97 Nasal Cannula 21 11/14/18 00:00 98.1 30 108/70 (83) 100 11/13/18 21:00 Nasal Cannula 2.0 11/13/18 20:00 98.4 114 30 95/49 (64) 96 11/13/18 19:49 87 24 99 Nasal Cannula 2.0 28 11/13/18 19:44 98 Nasal Cannula 2.0 28 11/13/18 19:42 81 28 98 Nasal Cannula 21 11/13/18 18:55 99.5 11/13/18 16:06 101.6 11/13/18 16:00 100.6 126 29 130/71 (90) 96 11/13/18 15:11 98 32 93 Nasal Cannula 2.0 28 11/13/18 13:05 95 26 99 Nasal Cannula 2.0 28 11/13/18 12:53 107 28 97 Room Air 11/13/18 11:59 100.2 81 32 117/68 (84) 98 Height (Feet): 5 Height (Inches): 3.00 Weight (Pounds): 125 General Appearance: no acute distress HEENT: mucous membranes moist Respiratory/Chest: lungs clear Cardiovascular: normal rate Abdomen: soft, non tender, other - GT feeding Extremities: other - edema Skin: ulcers, other - R buttock Neurologic/Psychiatric: aphasia Laboratory Tests Test 11/13/18 23:30 11/14/18 06:40 Urine Color Yellow Urine Appearance Clear Urine pH 7 (4.5-8.0) Urine Specific [place] 1.015 (1.005-1.035) Urine Protein 2+ (NEGATIVE) H Urine Glucose (UA) Negative (NEGATIVE) Urine Ketones 1+ (NEGATIVE) H Urine Blood 2+ (NEGATIVE) H Urine Nitrite Negative (NEGATIVE) Urine Bilirubin Negative (NEGATIVE) Urine Urobilinogen Normal MG/DL (0.0-1.0) Urine Leukocyte Esterase Negative (NEGATIVE) Urine RBC 2-4 /HPF (0 - 2) H Urine WBC 0-2 /HPF (0 - 2) Urine Squamous Epithelial Cells Few /LPF (NONE/OCC) Urine Bacteria Few /HPF (NONE) White Blood Count 9.6 K/UL (4.8-10.8) Red Blood Count 3.58 M/UL (4.20-5.40) L Hemoglobin 11.7 G/DL (12.0-16.0) L Hematocrit 34.4 % (37.0-47.0) L Mean Corpuscular Volume 96 FL (80-99) Mean Corpuscular Hemoglobin 32.7 PG (27.0-31.0) H Mean Corpuscular Hemoglobin Concent 34.0 G/DL (32.0-36.0) Red Cell Distribution Width 12.2 % (11.6-14.8) Platelet Count 164 K/UL (150-450) Mean Platelet Volume 6.8 FL (6.5-10.1) Neutrophils (%) (Auto) 80.7 % (45.0-75.0) H Lymphocytes (%) (Auto) 12.3 % (20.0-45.0) L Monocytes (%) (Auto) 5.9 % (1.0-10.0) Eosinophils (%) (Auto) 0.2 % (0.0-3.0) Basophils (%) (Auto) 1.0 % (0.0-2.0) Sodium Level 143 MMOL/L (136-145) Potassium Level 3.2 MMOL/L (3.5-5.1) L Chloride Level 108 MMOL/L (98-107) H Carbon Dioxide Level 28 MMOL/L (21-32) Anion Gap 7 mmol/L (5-15) Blood Urea Nitrogen 19 mg/dL (7-18) H Creatinine 0.5 MG/DL (0.55-1.30) L Estimat Glomerular Filtration Rate > 60 mL/min (>60) Glucose Level 119 MG/DL (74-106) H Calcium Level 8.7 MG/DL (8.5-10.1) Magnesium Level 2.0 MG/DL (1.8-2.4) Total Bilirubin 0.3 MG/DL (0.2-1.0) Aspartate Amino Transf (AST/SGOT) 82 U/L (15-37) H Alanine Aminotransferase (ALT/SGPT) 42 U/L (12-78) Alkaline Phosphatase 64 U/L (46-116) Total Protein 6.3 G/DL (6.4-8.2) L Albumin 3.0 G/DL (3.4-5.0) L Globulin 3.3 g/dL Albumin/Globulin Ratio 0.9 (1.0-2.7) L Current Medications Medications (Trade) Dose Ordered Sig/Alex Route PRN Reason Start Time Stop Time Status Last Admin Dose Admin Acetaminophen (Tylenol) 650 mg Q4H PRN ORAL Mild Pain/Temp > 100.5 11/09/18 11:30 12/09/18 11:29 11/13/18 15:36 Albuterol/ Ipratropium (Albuterol/ Ipratropium) 3 ml Q6H PRN HHN Shortness of Breath 11/10/18 14:00 11/15/18 13:59 11/13/18 15:11 Albuterol/ Ipratropium (Albuterol/ Ipratropium) 3 ml Q6HRT HHN 11/12/18 01:00 11/17/18 00:59 11/14/18 07:57 Cefazolin Sodium 1 gm/Dextrose 55 ml @ 110 mls/hr Q8HR IVPB 11/12/18 22:00 11/19/18 21:59 11/14/18 05:20 Fentanyl (Duragesic) 1 patch Q72H TDERMAL 11/09/18 18:00 11/16/18 17:59 11/12/18 18:03 Heparin Sodium (Porcine) (Heparin 5000 units/ml) 5,000 units EVERY 12 HOURS SUBQ 11/10/18 09:00 12/10/18 08:59 11/14/18 08:45 Levetiracetam (Keppra) 1,000 mg BEDTIME ORAL 11/09/18 21:00 12/09/18 20:59 11/13/18 22:09 Lorazepam (Ativan) 1 mg Q6H PRN GT For Anxiety 11/08/18 23:45 11/15/18 23:44 11/11/18 15:37 Magnesium Hydroxide (Mom) 30 ml DAILYPRN PRN ORAL Constipation 11/11/18 17:30 12/11/18 17:29 11/13/18 15:35 Miscellaneous Medication (fentaNYL Destruction) 1 ea Q72H MISC 11/12/18 17:59 12/12/18 17:58 11/12/18 18:03 Morphine Sulfate (Morphine 10mg/ 5ml Oral Soln) 5 mg Q4H PRN GT For Pain 11/09/18 15:00 12/08/18 23:29 11/13/18 15:36 Quetiapine Fumarate (SEROquel) 25 mg Q6H PRN GT For Anxiety 11/09/18 15:00 12/09/18 14:59 11/13/18 17:27 Quetiapine Fumarate (SEROquel) 200 mg BEDTIME GT 11/11/18 21:00 12/09/18 20:59 11/13/18 22:09 Sodium 1,000 ml @ 75 mls/hr [id number] IV 11/11/18 23:00 12/11/18 22:59 11/14/18 04:34 Vern López MD Nov 14, 2018 11:03
[2018-11-14 12:00] VITALS: BP 113/89
--- NOTE | 2018-11-14 12:05 | Surgery Progress Note ---
Surgery Progress Note Subjective Additional Comments no acute events. stable. exam unchanged. dressings being changed. labs okay Objective Last 24 Hour Vital Signs Date Time Temp Pulse Resp B/P (MAP) Pulse Ox O2 Delivery O2 Flow Rate FiO2 11/14/18 09:00 Nasal Cannula 2.0 11/14/18 08:08 96 22 100 Nasal Cannula 2.0 28 11/14/18 08:02 98 Nasal Cannula 2.0 28 11/14/18 08:00 98.2 80 24 115/64 (81) 99 11/14/18 07:57 71 18 98 Nasal Cannula 2.0 28 11/14/18 04:00 97.2 79 30 108/60 (76) 96 11/14/18 00:40 90 24 100 Nasal Cannula 2.0 28 11/14/18 00:32 97 22 97 Nasal Cannula 21 11/14/18 00:00 98.1 30 108/70 (83) 100 11/13/18 21:00 Nasal Cannula 2.0 11/13/18 20:00 98.4 114 30 95/49 (64) 96 11/13/18 19:49 87 24 99 Nasal Cannula 2.0 28 11/13/18 19:44 98 Nasal Cannula 2.0 28 11/13/18 19:42 81 28 98 Nasal Cannula 21 11/13/18 18:55 99.5 11/13/18 16:06 101.6 11/13/18 16:00 100.6 126 29 130/71 (90) 96 11/13/18 15:11 98 32 93 Nasal Cannula 2.0 28 11/13/18 13:05 95 26 99 Nasal Cannula 2.0 28 11/13/18 12:53 107 28 97 Room Air 21 I&O Intake and Output 11/13/18 11/14/18 19:00 07:00 Intake Total 1100 ml 75 ml Output Total 120 ml Balance 1100 ml -45 ml Intake Free Water 30 ml 30 ml IV Total 755 ml Tube Feeding 315 ml 45 ml Output Emesis 120 ml # Voids 3 # Bowel Movements 2 Cardiovascular: RSR Respiratory: clear Abdomen: soft, non-tender, present bowel sounds, non-distended Extremities: no cyanosis, other Laboratory Tests Test 11/13/18 23:30 11/14/18 06:40 Urine Color Yellow Urine Appearance Clear Urine pH 7 (4.5-8.0) Urine Specific [place] 1.015 (1.005-1.035) Urine Protein 2+ (NEGATIVE) H Urine Glucose (UA) Negative (NEGATIVE) Urine Ketones 1+ (NEGATIVE) H Urine Blood 2+ (NEGATIVE) H Urine Nitrite Negative (NEGATIVE) Urine Bilirubin Negative (NEGATIVE) Urine Urobilinogen Normal MG/DL (0.0-1.0) Urine Leukocyte Esterase Negative (NEGATIVE) Urine RBC 2-4 /HPF (0 - 2) H Urine WBC 0-2 /HPF (0 - 2) Urine Squamous Epithelial Cells Few /LPF (NONE/OCC) Urine Bacteria Few /HPF (NONE) White Blood Count 9.6 K/UL (4.8-10.8) Red Blood Count 3.58 M/UL (4.20-5.40) L Hemoglobin 11.7 G/DL (12.0-16.0) L Hematocrit 34.4 % (37.0-47.0) L Mean Corpuscular Volume 96 FL (80-99) Mean Corpuscular Hemoglobin 32.7 PG (27.0-31.0) H Mean Corpuscular Hemoglobin Concent 34.0 G/DL (32.0-36.0) Red Cell Distribution Width 12.2 % (11.6-14.8) Platelet Count 164 K/UL (150-450) Mean Platelet Volume 6.8 FL (6.5-10.1) Neutrophils (%) (Auto) 80.7 % (45.0-75.0) H Lymphocytes (%) (Auto) 12.3 % (20.0-45.0) L Monocytes (%) (Auto) 5.9 % (1.0-10.0) Eosinophils (%) (Auto) 0.2 % (0.0-3.0) Basophils (%) (Auto) 1.0 % (0.0-2.0) Sodium Level 143 MMOL/L (136-145) Potassium Level 3.2 MMOL/L (3.5-5.1) L Chloride Level 108 MMOL/L (98-107) H Carbon Dioxide Level 28 MMOL/L (21-32) Anion Gap 7 mmol/L (5-15) Blood Urea Nitrogen 19 mg/dL (7-18) H Creatinine 0.5 MG/DL (0.55-1.30) L Estimat Glomerular Filtration Rate > 60 mL/min (>60) Glucose Level 119 MG/DL (74-106) H Calcium Level 8.7 MG/DL (8.5-10.1) Magnesium Level 2.0 MG/DL (1.8-2.4) Total Bilirubin 0.3 MG/DL (0.2-1.0) Aspartate Amino Transf (AST/SGOT) 82 U/L (15-37) H Alanine Aminotransferase (ALT/SGPT) 42 U/L (12-78) Alkaline Phosphatase 64 U/L (46-116) Total Protein 6.3 G/DL (6.4-8.2) L Albumin 3.0 G/DL (3.4-5.0) L Globulin 3.3 g/dL Albumin/Globulin Ratio 0.9 (1.0-2.7) L Plan Problems: (1) Decubitus skin ulcer (2) Cellulitis of buttock, right Assessment & Plan: Full thickness pressure injury R buttocks oozing purulent exudate with trace amt of slough.(L)0.7cm x (W)1.2cm x (D)2.1cm,Tunneling clockwise @11o'clock by 3.3cm.Periwound is indurated with hyperpigmentation. Historical scars noted to L buttocks. Given Fevers and still drainage of wound will obtain CT pelvis to ensure no deep pocket or tunneling abscess need to monitor for incontinence and change dressings often to ensure clean CT with * Skin thickening and soft tissue infiltration overlying the right aspect of the lower sacrum raising question for decubitus ulcer. Correlation with physical exam is recommended. No bony changes in the underlying sacrum to suggest osteomyelitis. No subcutaneous fluid collection to suggest abscess. needs bowel regimen will order cont with wound care no planned surgery at this time will cont to monitor and help heal wound Ruddy Elias Nov 14, 2018 12:05
--- NOTE | 2018-11-14 13:34 | CDS Physician Query ---
Clarification is required for compliance, coding accuracy, and to reflect severity of illness for this patient Dear Dr. Mario Alberto Merlos Date: 11/14/2018 Advertisement Distributor/CDS Name: Laurel Bess Clinical Documentation states: 11/10 ID note: Sepsis with tachycardia and fever. Source is not clear right now. The patient had multiple seizures before admission, may have aspiration and developed aspiration pneumonia. Vitals on admission: Temp 99.0, HR 115, RR 22, Wbc 5.8 Treatment: IV vancomycin, cefazolin Clarification is needed for one (or more) of the following conditions in order to accurately assign the "present on admission' indicator. Please choose the answer that best indicates whether the associated condition was present at the time of the order for inpatient admission. Thank you. Was the Sepsis Present on admission? [x] YES [] NO [] Clinically Undeterminable Physician signature Date Please also document in your Progress Notes and/or Discharge Summary and indicate if the condition was present on admission. LUANN
--- NOTE | 2018-11-14 13:55 | Diagnostic Imaging Report ---
Indication: Abdominal pain Comparison: None Single view of the abdomen obtained Findings: There is a gastrostomy projected over the stomach. Bowel gas pattern is nonspecific. There is contrast material within the colon and rectum. There is a moderate amount of rectal fecal retention. IMPRESSION: No acute findings
--- NOTE | 2018-11-14 13:59 | Diagnostic Imaging Report ---
Indication: Dyspnea Comparison: 11/10/2018 A single view chest radiograph was obtained. Findings: Cardiomediastinal appearance is within normal limits for age. The lungs are clear. Pulmonary vascularity is appropriate accounting for low lung volumes. The diaphragmatic contour is smooth and costophrenic angles are sharp. No pleural effusions are identified. The bones are unremarkable. Impression: No acute findings. Limited evaluation due to expiratory lung volumes.
[2018-11-14 16:00] VITALS: BP 126/67
--- NOTE | 2018-11-14 17:40 | NUR ---
NURSE NOTES: changed dressing of right buttock tunneling wound as ordered, covered with Optifoam. Applied moisture barrier to sacral and bilateral ischial, and skin barier to bilateral heel, covering with Optifoam. Off loaded heels with pillow. Changed GT dressing. No gastric residual noted throughout the shift. Pt presenting sudoresis, skin warm to touch but no fever noted.
--- NOTE | 2018-11-14 19:08 | NUR ---
HAND-OFF: Report given to HOLLY Beyer.
--- NOTE | 2018-11-14 19:15 | NUR ---
NURSE NOTES: RECEIVED PT FROM HOLLY FERRER. PT IS AWAKE, AAOX0, NON VERBAL. NO ACUTE DISTRESS NOTED. PT IS ON NC 2L, UNLABORED BREATHING. IV ON LEFT UPPER ARM 24G IS INTACT AND PATENT. CURRENTLY RUNNING 1/2 NS 20 KCL. G-TUBE FEEDING IS INTACT AND PATENT. FLUSHING WELL AND NO RESIDUALS. PATIENT IS TOLERATING FEEDING WELL. BED IS LOCKED AT THE LOWEST POSITION, BED ALARMS ACTIVE, SIDE RAILS UP X3, AND CALL LIGHT IS WITHIN REACH. WILL CONTINUE TO MONITOR.
--- NOTE | 2018-11-14 19:30 | Progress Note ---
DATE: 11/14/2018 SUBJECTIVE: The patient is in bed, no acute distress. Yesterday, she has been yelling and more agitated. Today, she is calmer, more redirected. No agitation today. She is staring at the ceiling. MENTAL STATUS EXAMINATION: The patient is alert, oriented x0. Mood is neutral. Affect is flat. Thought process is disorganized. Thought content, no suicidal or homicidal ideation. Cognition is impaired. Insight and judgment non-existent. ASSESSMENT: 1. Psychotic disorder. 2. Traumatic brain injury. 3. Agitation. PLAN: 1. Continue the current medication. 2. Encourage the nurse to use p.r.n. medication. 3. We will continue to follow and readjust the medications. Raghu Charles M.D. DR: MARILYN JOB#: [id number] CC:
[2018-11-14 20:00] VITALS: BP 130/84
[2018-11-14] MEDS: QUEtiapine 200mg tab GT SCH (22:19)
[2018-11-15] VITALS: BP 117/65
[2018-11-15] MEDS: Albuterol/Ipratropium 3ml neb HHN SCH ×4 (01:15→19:45)
--- NOTE | 2018-11-15 02:00 | Progress Note ---
DATE: 11/14/2018 CARDIOLOGY PROGRESS NOTE SUBJECTIVE: Condition has improved. The patient is afebrile. OBJECTIVE: VITAL SIGNS: Today, blood pressure 126/67, pulse 74, and respirations 19. Tolerating nutrition by feeding tube. LUNGS: Good breath sounds. HEART: Regular rhythm and rate. Normal S1, S2. ABDOMEN: Soft. EXTREMITIES: No edema. SKIN: Wound site has dressing in place. Drainage decreased. LABORATORY DATA: White count 9.6 and hemoglobin 11.7. Potassium 3.2, BUN 19, and creatinine 0.5. Magnesium 2.0. Albumin 3.0. IMPRESSION: 1. Sacral wound. 2. Sepsis. 3. Hypokalemia. 4. Mild protein-calorie malnutrition. 5. Neuromuscular disorder with severe debility. PLAN: 1. Adjust IV fluids. 2. Replace potassium. 3. Antimicrobials. 4. Skin care. 5. Respiratory hygiene. 6. Pain control. 7. Nutrition and protein supplement by feeding tube. Mario Alberto Merlos M.D. DR: SUDARSHAN JOB#: [id number] CC:
[2018-11-15 04:00] VITALS: BP 110/69
[2018-11-15] MEDS: 1/2NS w/KCl 20mEq 1000ml 1,000 ML IV SCH (04:13)
[2018-11-15] MEDS: ceFAZolin sod 1 GM in D5W 55 ML IVPB SCH ×3 (06:40→21:46)
[2018-11-15 07:10] LABS: ANION GAP 7 mmol/L (5-15); BLOOD UREA NITROGEN 14 mg/dL (7-18); CALCIUM 8.5 MG/DL (8.5-10.1); CARBON DIOXIDE 25 MMOL/L (21-32); CHLORIDE 107 MMOL/L (98-107); CREATININE 0.5 MG/DL (0.55-1.30); POTASSIUM 3.5 MMOL/L (3.5-5.1); SODIUM 139 MMOL/L (136-145)
[2018-11-15 07:12] LABS: BASOPHILS % (AUTO) 0.4 % (0.0-2.0); EOSINOPHILS % (AUTO) 0.4 % (0.0-3.0); HEMATOCRIT 33.6 % (37.0-47.0); HEMOGLOBIN 11.4 G/DL (12.0-16.0); MEAN CORPUSCULAR VOLUME 97 FL (80-99); MONOCYTES % (AUTO) 4.9 % (1.0-10.0); NEUTROPHILS % (AUTO) 84.3 % (45.0-75.0); PLATELET COUNT 195 K/UL (150-450); RED BLOOD COUNT 3.45 M/UL (4.20-5.40); RED CELL DISTRIBUTION WIDTH 12.5 % (11.6-14.8); WHITE BLOOD COUNT 12.2 K/UL (4.8-10.8)
--- NOTE | 2018-11-15 07:48 | NUR ---
HAND-OFF: Report given to HOLLY Lowery.
[2018-11-15 08:00] VITALS: BP 132/74
--- NOTE | 2018-11-15 08:15 | NUR ---
NURSE NOTES: Patient is alert and awake. Patient reactive to stimuli. HOB is elevated. Tube feeding is running at 45ml/hr. No s/s of distress at the moment. Will continue to monitor.
--- NOTE | 2018-11-15 08:33 | Surgery Progress Note ---
Surgery Progress Note Subjective Additional Comments no acute events more comfortable this AM tolerating feeds exam stable Objective Last 24 Hour Vital Signs Date Time Temp Pulse Resp B/P (MAP) Pulse Ox O2 Delivery O2 Flow Rate FiO2 11/15/18 08:00 75 20 99 Nasal Cannula 2.0 28 11/15/18 07:52 74 20 97 Nasal Cannula 2.0 28 11/15/18 07:52 97 Nasal Cannula 2.0 28 11/15/18 04:00 97.3 99 18 110/69 (83) 96 11/15/18 01:22 85 20 99 Nasal Cannula 2.0 28 11/15/18 01:15 83 20 98 Nasal Cannula 2.0 28 11/15/18 00:00 99.3 97 16 117/65 (82) 96 11/14/18 21:00 Nasal Cannula 2.0 11/14/18 20:02 93 20 100 Nasal Cannula 2.0 28 11/14/18 20:00 100.3 127 20 130/84 (99) 99 11/14/18 19:53 97 Nasal Cannula 2.0 28 11/14/18 19:53 78 20 97 Nasal Cannula 2.0 28 11/14/18 16:00 98.8 74 19 126/67 (86) 97 11/14/18 14:26 88 20 100 Nasal Cannula 2.0 28 11/14/18 14:16 86 20 98 Nasal Cannula 2.0 28 11/14/18 12:00 98.9 95 20 113/89 (97) 98 11/14/18 09:00 Nasal Cannula 2.0 I&O Intake and Output 11/14/18 11/15/18 19:00 07:00 Intake Total 1367 ml 835 ml Output Total 350 ml Balance 1017 ml 835 ml Intake Free Water 30 ml IV Total 842 ml 835 ml Tube Feeding 495 ml Output Urine Total 350 ml # Voids 3 Dressing: saturated Wound: other Drains: other Cardiovascular: RSR Respiratory: decreased breath sounds Abdomen: soft, present bowel sounds, non-distended Extremities: no cyanosis Laboratory Tests Test 11/15/18 06:10 White Blood Count 12.2 K/UL (4.8-10.8) H Red Blood Count 3.45 M/UL (4.20-5.40) L Hemoglobin 11.4 G/DL (12.0-16.0) L Hematocrit 33.6 % (37.0-47.0) L Mean Corpuscular Volume 97 FL (80-99) Mean Corpuscular Hemoglobin 33.0 PG (27.0-31.0) H Mean Corpuscular Hemoglobin Concent 34.0 G/DL (32.0-36.0) Red Cell Distribution Width 12.5 % (11.6-14.8) Platelet Count 195 K/UL (150-450) Mean Platelet Volume 7.0 FL (6.5-10.1) Neutrophils (%) (Auto) 84.3 % (45.0-75.0) H Lymphocytes (%) (Auto) 10.0 % (20.0-45.0) L Monocytes (%) (Auto) 4.9 % (1.0-10.0) Eosinophils (%) (Auto) 0.4 % (0.0-3.0) Basophils (%) (Auto) 0.4 % (0.0-2.0) Erythrocyte Sedimentation Rate Pending Sodium Level 139 MMOL/L (136-145) Potassium Level 3.5 MMOL/L (3.5-5.1) Chloride Level 107 MMOL/L (98-107) Carbon Dioxide Level 25 MMOL/L (21-32) Anion Gap 7 mmol/L (5-15) Blood Urea Nitrogen 14 mg/dL (7-18) Creatinine 0.5 MG/DL (0.55-1.30) L Estimat Glomerular Filtration Rate > 60 mL/min (>60) Glucose Level 136 MG/DL (74-106) H Calcium Level 8.5 MG/DL (8.5-10.1) C-Reactive Protein, Quantitative 1.4 mg/dL (0.00-0.90) H Plan Problems: (1) Decubitus skin ulcer (2) Cellulitis of buttock, right Assessment & Plan: Full thickness pressure injury R buttocks oozing purulent exudate with trace amt of slough.(L)0.7cm x (W)1.2cm x (D)2.1cm,Tunneling clockwise @11o'clock by 3.3cm.Periwound is indurated with hyperpigmentation. Historical scars noted to L buttocks. Given Fevers and still drainage of wound will obtain CT pelvis to ensure no deep pocket or tunneling abscess need to monitor for incontinence and change dressings often to ensure clean CT with * Skin thickening and soft tissue infiltration overlying the right aspect of the lower sacrum raising question for decubitus ulcer. Correlation with physical exam is recommended. No bony changes in the underlying sacrum to suggest osteomyelitis. No subcutaneous fluid collection to suggest abscess. overall slowly improving cont with wound care no planned surgery at this time will cont to monitor and help heal wound cont with dressings appreciate great nursing care Ruddy Elias Nov 15, 2018 08:33
[2018-11-15] MEDS: Heparin 5000 units/ml inj SUBQ SCH ×2 (09:08→21:47)
--- NOTE | 2018-11-15 11:26 | Infectious Diseases Prog Note ---
Assessment/Plan Assessment/Plan antibiotics : ancef A 1. decubitus ulcer infection with proteus 2. + blood cultures with coag neg staph likely contaminated 3. seizures 4. quadriplegia P 1. continue ancef 2. will follow up cultures Subjective ROS Limited/Unobtainable: Yes Allergies: Coded Allergies: No Known Allergies (Unverified , 11/08/18) Objective Vital Signs Last 24 Hour Vital Signs Date Time Temp Pulse Resp B/P (MAP) Pulse Ox O2 Delivery O2 Flow Rate FiO2 11/15/18 08:15 Nasal Cannula 2.0 11/15/18 08:00 75 20 99 Nasal Cannula 2.0 28 11/15/18 08:00 98.9 76 18 132/74 (93) 95 11/15/18 07:52 74 20 97 Nasal Cannula 2.0 28 11/15/18 07:52 97 Nasal Cannula 2.0 28 11/15/18 04:00 97.3 99 18 110/69 (83) 96 11/15/18 01:22 85 20 99 Nasal Cannula 2.0 28 11/15/18 01:15 83 20 98 Nasal Cannula 2.0 28 11/15/18 00:00 99.3 97 16 117/65 (82) 96 11/14/18 21:00 Nasal Cannula 2.0 11/14/18 20:02 93 20 100 Nasal Cannula 2.0 28 11/14/18 20:00 100.3 127 20 130/84 (99) 99 11/14/18 19:53 97 Nasal Cannula 2.0 28 11/14/18 19:53 78 20 97 Nasal Cannula 2.0 28 11/14/18 16:00 98.8 74 19 126/67 (86) 97 11/14/18 14:26 88 20 100 Nasal Cannula 2.0 28 11/14/18 14:16 86 20 98 Nasal Cannula 2.0 28 11/14/18 12:00 98.9 95 20 113/89 (97) 98 Height (Feet): 5 Height (Inches): 3.00 Weight (Pounds): 125 Respiratory/Chest: lungs clear Cardiovascular: normal rate, regular rhythm, no gallop/murmur Abdomen: soft, non tender, other - GT Extremities: other - + edema Microbiology Date/Time Source Procedure Growth Status 11/13/18 23:30 Straight Cath Urine Culture - Preliminary NO GROWTH AFTER 24 HOURS Resulted Laboratory Tests Test 11/15/18 06:10 White Blood Count 12.2 K/UL (4.8-10.8) H Red Blood Count 3.45 M/UL (4.20-5.40) L Hemoglobin 11.4 G/DL (12.0-16.0) L Hematocrit 33.6 % (37.0-47.0) L Mean Corpuscular Volume 97 FL (80-99) Mean Corpuscular Hemoglobin 33.0 PG (27.0-31.0) H Mean Corpuscular Hemoglobin Concent 34.0 G/DL (32.0-36.0) Red Cell Distribution Width 12.5 % (11.6-14.8) Platelet Count 195 K/UL (150-450) Mean Platelet Volume 7.0 FL (6.5-10.1) Neutrophils (%) (Auto) 84.3 % (45.0-75.0) H Lymphocytes (%) (Auto) 10.0 % (20.0-45.0) L Monocytes (%) (Auto) 4.9 % (1.0-10.0) Eosinophils (%) (Auto) 0.4 % (0.0-3.0) Basophils (%) (Auto) 0.4 % (0.0-2.0) Erythrocyte Sedimentation Rate 39 MM/HR (0-20) H Sodium Level 139 MMOL/L (136-145) Potassium Level 3.5 MMOL/L (3.5-5.1) Chloride Level 107 MMOL/L (98-107) Carbon Dioxide Level 25 MMOL/L (21-32) Anion Gap 7 mmol/L (5-15) Blood Urea Nitrogen 14 mg/dL (7-18) Creatinine 0.5 MG/DL (0.55-1.30) L Estimat Glomerular Filtration Rate > 60 mL/min (>60) Glucose Level 136 MG/DL (74-106) H Calcium Level 8.5 MG/DL (8.5-10.1) C-Reactive Protein, Quantitative 1.4 mg/dL (0.00-0.90) H Current Medications Medications (Trade) Dose Ordered Sig/Alex Route PRN Reason Start Time Stop Time Status Last Admin Dose Admin Acetaminophen (Tylenol) 650 mg Q4H PRN ORAL Mild Pain/Temp > 100.5 11/09/18 11:30 12/09/18 11:29 11/13/18 15:36 Albuterol/ Ipratropium (Albuterol/ Ipratropium) 3 ml Q6H PRN HHN Shortness of Breath 11/10/18 14:00 11/15/18 13:59 11/13/18 15:11 Albuterol/ Ipratropium (Albuterol/ Ipratropium) 3 ml Q6HRT HHN 11/12/18 01:00 11/17/18 00:59 11/15/18 07:52 Cefazolin Sodium 1 gm/Dextrose 55 ml @ 110 mls/hr Q8HR IVPB 11/12/18 22:00 11/19/18 21:59 11/15/18 06:40 Fentanyl (Duragesic) 1 patch Q72H TDERMAL 11/09/18 18:00 11/16/18 17:59 11/12/18 18:03 Heparin Sodium (Porcine) (Heparin 5000 units/ml) 5,000 units EVERY 12 HOURS SUBQ 11/10/18 09:00 12/10/18 08:59 11/15/18 09:08 Levetiracetam (Keppra) 1,000 mg BEDTIME ORAL 11/09/18 21:00 12/09/18 20:59 11/14/18 22:20 Lorazepam (Ativan) 1 mg Q6H PRN GT For Anxiety 11/08/18 23:45 11/15/18 23:44 11/11/18 15:37 Magnesium Hydroxide (Mom) 30 ml DAILYPRN PRN ORAL Constipation 11/11/18 17:30 12/11/18 17:29 11/13/18 15:35 Miscellaneous Medication (fentaNYL Destruction) 1 ea Q72H MISC 11/12/18 17:59 12/12/18 17:58 11/12/18 18:03 Morphine Sulfate (Morphine 10mg/ 5ml Oral Soln) 5 mg Q4H PRN GT For Pain 11/09/18 15:00 12/08/18 23:29 11/13/18 15:36 Quetiapine Fumarate (SEROquel) 25 mg Q6H PRN GT For Anxiety 11/09/18 15:00 12/09/18 14:59 11/13/18 17:27 Quetiapine Fumarate (SEROquel) 200 mg BEDTIME GT 11/11/18 21:00 12/09/18 20:59 11/14/18 22:19 Sodium 1,000 ml @ 50 mls/hr Q20H IV 11/15/18 02:30 12/15/18 22:59 11/15/18 04:13 Mateusz Bone MD Nov 15, 2018 11:26
[2018-11-15 12:00] VITALS: BP 125/75
--- NOTE | 2018-11-15 13:29 | NUR ---
RD ASSESSMENT & RECOMMENDATIONS SEE CARE ACTIVITY FOR COMPLETE ASSESSMENT DAILY ESTIMATED NEEDS: Needs based on wound/ 52kg 30-35 kcals/kg 2732-3210 total kcals 1.5-2.0 g protein/kg 78-104 g total protein 25-30 mL/kg 7437-5792 total fluid mLs NUTRITION DIAGNOSIS: * Increased kcal/prot/micronutrients needs R/T wound healing as evidenced by pt admitted w/ full thickness wound at R buttocks, oozing purulent exudate with trace amt of slough, tunneling clockwise. * Swallowing difficulty R/T dysphagia, h/o neurologic disorder as evidenced by PEG dep. CURRENT TF:Jevity 1.2 @ 45ml/hr x 24 hrs ENTERAL NUTRITION RECOMMENDATIONS: Jevity 1.2 @ 55ml/hr x 24 hrs + Prosource 1pkt daily to provide 1320ml, 1584kcal, 73g + 11g prot, 1065ml free water * Rec to INCREASE goal rate to 55ml/hr x 24 hrs * Add Prosource 1pkt daily to meet increased protein needs * HOB over 30 degrees/ water flush per MD ADDITIONAL RECOMMENDATIONS: * CALIBRATED BEDSCALE WT FOR ACCURATE CBW * -> bedscale reads 0kg * Wound healing: add Vit C 500mg BID : add ZnSO4 220mg QD x 10 days : add Joe 1pkt BID * Monitor lytes daily, replete as needed
[2018-11-15 16:00] VITALS: BP 130/69
[2018-11-15] MEDS: fentaNYL Destruction MISC SCH (17:50)
--- NOTE | 2018-11-15 19:22 | General Progress Note ---
Assessment/Plan Problem List: (1) Encephalopathy acute ICD Codes: G93.40 - Encephalopathy, unspecified SNOMED: 14464180, 414114025 (2) Anemia ICD Codes: D64.9 - Anemia, unspecified SNOMED: 499584835 (3) Decubitus skin ulcer ICD Codes: L89.90 - Pressure ulcer of unspecified site, unspecified stage SNOMED: 975524361 Qualifiers: (4) Seizure disorder ICD Codes: G40.909 - Epilepsy, unspecified, not intractable, without status epilepticus SNOMED: 315324571 (5) Cellulitis of buttock, right ICD Codes: L03.317 - Cellulitis of buttock SNOMED: 02136414 Status: stable, progressing Assessment/Plan: cont current rx gt feeds wound care abx per id sz rx replace lytes Subjective ROS Limited/Unobtainable: Yes Constitutional: Reports: malaise, weakness HEENT: Reports: no symptoms Cardiovascular: Reports: no symptoms Respiratory: Reports: no symptoms Gastrointestinal/Abdominal: Reports: difficulty swallowing Genitourinary: Reports: no symptoms Neurologic/Psychiatric: Reports: pre-existing deficit, seizure Endocrine: Reports: no symptoms Hematologic/Lymphatic: Reports: anemia Allergies: Coded Allergies: No Known Allergies (Unverified , 11/08/18) All Systems: reviewed and negative except above Subjective no events. awake but nonverbal. no szs. Objective Last 24 Hour Vital Signs Date Time Temp Pulse Resp B/P (MAP) Pulse Ox O2 Delivery O2 Flow Rate FiO2 11/15/18 16:00 98.5 69 19 130/69 (89) 94 11/15/18 12:59 82 20 100 Nasal Cannula 2.0 11/15/18 12:49 81 20 98 Nasal Cannula 2.0 28 11/15/18 12:00 97.6 100 19 125/75 (92) 97 11/15/18 08:15 Nasal Cannula 2.0 11/15/18 08:00 75 20 99 Nasal Cannula 2.0 28 11/15/18 08:00 98.9 76 18 132/74 (93) 95 11/15/18 07:52 74 20 97 Nasal Cannula 2.0 28 11/15/18 07:52 97 Nasal Cannula 2.0 28 11/15/18 04:00 97.3 99 18 110/69 (83) 96 11/15/18 01:22 85 20 99 Nasal Cannula 2.0 28 11/15/18 01:15 83 20 98 Nasal Cannula 2.0 28 11/15/18 00:00 99.3 97 16 117/65 (82) 96 11/14/18 21:00 Nasal Cannula 2.0 11/14/18 20:02 93 20 100 Nasal Cannula 2.0 28 11/14/18 20:00 100.3 127 20 130/84 (99) 99 11/14/18 19:53 97 Nasal Cannula 2.0 28 11/14/18 19:53 78 20 97 Nasal Cannula 2.0 28 Intake and Output 11/14/18 11/15/18 19:00 07:00 Intake Total 1367 ml 835 ml Output Total 350 ml Balance 1017 ml 835 ml Intake Free Water 30 ml IV Total 842 ml 835 ml Tube Feeding 495 ml Output Urine Total 350 ml # Voids 3 Laboratory Tests 11/15/18 06:10: White Blood Count 12.2H, Red Blood Count 3.45L, Hemoglobin 11.4L, Hematocrit 33.6L, Mean Corpuscular Volume 97, Mean Corpuscular Hemoglobin 33.0H, Mean Corpuscular Hemoglobin Concent 34.0, Red Cell Distribution Width 12.5, Platelet Count 195, Mean Platelet Volume 7.0, Neutrophils (%) (Auto) 84.3H, Lymphocytes ( %) (Auto) 10.0L, Monocytes (%) (Auto) 4.9, Eosinophils (%) (Auto) 0.4, Basophils (%) (Auto) 0.4, Erythrocyte Sedimentation Rate 39H, Sodium Level 139, Potassium Level 3.5, Chloride Level 107, Carbon Dioxide Level 25, Anion Gap 7, Blood Urea Nitrogen 14, Creatinine 0.5L, Estimat Glomerular Filtration Rate > 60 , Glucose Level 136H, Calcium Level 8.5, C-Reactive Protein, Quantitative 1.4H Height (Feet): 5 Height (Inches): 3.00 Weight (Pounds): 125 General Appearance: WD/WN, alert, confused Neck: normal alignment, supple Cardiovascular: normal rate Respiratory/Chest: chest wall non-tender, lungs clear, normal breath sounds, no respiratory distress, no accessory muscle use Abdomen: normal bowel sounds, non tender, soft, no organomegaly, no mass Edema: no edema noted Arm (L), no edema noted Arm (R), no edema noted Leg (L), no edema noted Leg (R), no edema noted Pedal (L), no edema noted Pedal (R), no edema noted Generalized Neurologic: unresponsive, aphasia Jasper Starr MD Nov 15, 2018 19:22
--- NOTE | 2018-11-15 19:29 | NUR ---
HAND-OFF: Report given to HOLLY Harris.
--- NOTE | 2018-11-15 19:48 | NUR ---
NURSE NOTES: RECEIVED PT FROM HOLLY SYLVESTER. PT IS AWAKE, AAOXO, NONVERBAL, ON NC 2L, NO ACUTE DISTRESS NOTED. SEIZURE PRECAUTIONS IMPLEMENTED, SIDE RAILS PADDED. IV ON LEFT UPPER ARM/CHEST IS INTACT AND PATENT. G-TUBE FEEDING IS INTACT AND PATENT, NO RESIDUALS. PT IS TOLERATING FEEDING WELL. DRESSINGS ON BUTTOCKS AND BILATERAL HEELS ARE INTACT AND DRY. BED IS LOCKED AT THE LOWEST POSITION, BED ALARMS ACTIVE, SIDE RAILS UP X2, AND CALL LIGHT IS WITHIN REACH. WILL CONTINUE TO MONITOR.
[2018-11-15 20:00] VITALS: BP 125/70
--- NOTE | 2018-11-15 20:20 | NUR ---
CASE MANAGEMENT: REVIEW SI: SEIZURE DISORDER . CELLULITIS/ULCER RIGHT BUTTOCK . T 98.5 HR 69 RR 19 BP 130/69 SAT 94% NC/2L WBC 12.2 H/H 11.4/33.6 IS: ALBUTEROL HHN Q6HR NS IVF @50ML/HR CEFAZOLIN IV Q8HR FENTANYL PATCH Q72HR HEPARIN SUBQ Q12HR CONTINUE WOUND CARE MED/SURG UNIT STATUS DCP: PATIENT IS FROM HOME
[2018-11-15] MEDS: QUEtiapine 200mg tab GT SCH (21:46)
[2018-11-15] MEDS ORDERED: 1/2NS w/KCl 20mEq 1000ml 1,000 ML IV SCH (23:00)
[2018-11-16] VITALS: BP 121/68
[2018-11-16] MEDS: 1/2NS w/KCl 20mEq 1000ml 1,000 ML IV SCH ×2 (00:08→17:16)
[2018-11-16] MEDS: Albuterol/Ipratropium 3ml neb HHN SCH ×4 (01:04→19:48)
[2018-11-16 04:00] VITALS: BP 110/101
[2018-11-16] MEDS: ceFAZolin sod 1 GM in D5W 55 ML IVPB SCH ×3 (05:15→21:26)
--- NOTE | 2018-11-16 07:31 | NUR ---
HAND-OFF: Report given to HOLLY Barton. Pt is in stable condition. Endorsed to ARNOLDO RN the plan of care.
[2018-11-16 08:00] VITALS: BP 115/73
--- NOTE | 2018-11-16 08:22 | NUR ---
NURSE NOTES: Patient is asleep. No s/s of distress. HOB is elevated. Side rails are upx2, padded, bed is locked and in lowest position. Will continue to monitor.
[2018-11-16] MEDS: Heparin 5000 units/ml inj SUBQ SCH ×2 (08:40→21:25)
--- NOTE | 2018-11-16 10:54 | Infectious Diseases Prog Note ---
Assessment/Plan Assessment/Plan antibiotics : ancef A 1. decubitus ulcer infection with proteus 2. + blood cultures with coag neg staph likely contaminated 3. seizures 4. quadriplegia P 1. continue ancef 2 more days 2. will follow up cultures Subjective ROS Limited/Unobtainable: Yes Allergies: Coded Allergies: No Known Allergies (Unverified , 11/08/18) Objective Vital Signs Last 24 Hour Vital Signs Date Time Temp Pulse Resp B/P (MAP) Pulse Ox O2 Delivery O2 Flow Rate FiO2 11/16/18 09:09 99.4 11/16/18 08:30 Nasal Cannula 2.0 11/16/18 08:12 85 20 98 Nasal Cannula 2.0 28 11/16/18 08:02 83 20 98 Nasal Cannula 2.0 28 11/16/18 08:02 98 Nasal Cannula 2.0 28 11/16/18 08:00 100.5 96 18 115/73 (87) 95 11/16/18 04:00 99.1 91 18 110/101 (104) 95 11/16/18 01:14 88 20 98 Nasal Cannula 2.0 28 11/16/18 01:04 77 20 97 Nasal Cannula 2.0 28 11/16/18 00:00 98.6 92 18 121/68 (85) 95 11/15/18 21:00 Nasal Cannula 2.0 11/15/18 20:00 99.1 72 17 125/70 (88) 98 11/15/18 19:56 77 20 100 Nasal Cannula 2.0 28 11/15/18 19:45 100 Nasal Cannula 2.0 28 11/15/18 19:45 83 20 100 Nasal Cannula 2.0 28 11/15/18 16:00 98.5 69 19 130/69 (89) 94 11/15/18 12:59 82 20 100 Nasal Cannula 2.0 28 11/15/18 12:49 81 20 98 Nasal Cannula 2.0 28 11/15/18 12:00 97.6 100 19 125/75 (92) 97 Height (Feet): 5 Height (Inches): 3.00 Weight (Pounds): 124 Respiratory/Chest: lungs clear Cardiovascular: normal rate, regular rhythm, no gallop/murmur Abdomen: soft, non tender, other - GT Extremities: other - + edema Microbiology Date/Time Source Procedure Growth Status 11/13/18 23:30 Straight Cath Urine Culture - Final NO GROWTH AFTER 48 HOURS Complete Current Medications Medications (Trade) Dose Ordered Sig/Alex Route PRN Reason Start Time Stop Time Status Last Admin Dose Admin Acetaminophen (Tylenol) 650 mg Q4H PRN ORAL Mild Pain/Temp > 100.5 11/09/18 11:30 12/09/18 11:29 11/16/18 08:39 Albuterol/ Ipratropium (Albuterol/ Ipratropium) 3 ml Q6HRT HHN 11/12/18 01:00 11/17/18 00:59 11/16/18 08:02 Cefazolin Sodium 1 gm/Dextrose 55 ml @ 110 mls/hr Q8HR IVPB 11/12/18 22:00 11/19/18 21:59 11/16/18 05:15 Fentanyl (Duragesic) 1 patch Q72H TDERMAL 11/09/18 18:00 11/16/18 17:59 11/15/18 17:47 Heparin Sodium (Porcine) (Heparin 5000 units/ml) 5,000 units EVERY 12 HOURS SUBQ 11/10/18 09:00 12/10/18 08:59 11/16/18 08:40 Levetiracetam (Keppra) 1,000 mg BEDTIME ORAL 11/09/18 21:00 12/09/18 20:59 11/15/18 21:46 Magnesium Hydroxide (Mom) 30 ml DAILYPRN PRN ORAL Constipation 11/11/18 17:30 12/11/18 17:29 11/13/18 15:35 Miscellaneous Medication (fentaNYL Destruction) 1 ea Q72H MISC 11/12/18 17:59 12/12/18 17:58 11/15/18 17:50 Morphine Sulfate (Morphine 10mg/ 5ml Oral Soln) 5 mg Q4H PRN GT For Pain 11/09/18 15:00 12/08/18 23:29 11/13/18 15:36 Quetiapine Fumarate (SEROquel) 25 mg Q6H PRN GT For Anxiety 11/09/18 15:00 12/09/18 14:59 11/13/18 17:27 Quetiapine Fumarate (SEROquel) 200 mg BEDTIME GT 11/11/18 21:00 12/09/18 20:59 11/15/18 21:46 Sodium 1,000 ml @ 50 mls/hr Q20H IV 11/15/18 02:30 12/15/18 22:59 11/16/18 00:08 Mateusz Bone MD Nov 16, 2018 10:54
[2018-11-16 12:00] VITALS: BP 115/68
--- NOTE | 2018-11-16 15:26 | General Progress Note ---
Assessment/Plan Problem List: (1) Encephalopathy acute ICD Codes: G93.40 - Encephalopathy, unspecified SNOMED: 64911337, 154560985 (2) Anemia ICD Codes: D64.9 - Anemia, unspecified SNOMED: 132446631 (3) Decubitus skin ulcer ICD Codes: L89.90 - Pressure ulcer of unspecified site, unspecified stage SNOMED: 816094108 Qualifiers: (4) Seizure disorder ICD Codes: G40.909 - Epilepsy, unspecified, not intractable, without status epilepticus SNOMED: 067270409 (5) Cellulitis of buttock, right ICD Codes: L03.317 - Cellulitis of buttock SNOMED: 54324710 Status: stable, progressing Assessment/Plan: cont current rx gt feeds GI eval for possible gt replacement wound care abx per id sz rx repeat labs in am Subjective ROS Limited/Unobtainable: Yes Constitutional: Reports: malaise, weakness HEENT: Reports: no symptoms Cardiovascular: Reports: no symptoms Respiratory: Reports: no symptoms Gastrointestinal/Abdominal: Reports: difficulty swallowing Genitourinary: Reports: no symptoms Neurologic/Psychiatric: Reports: pre-existing deficit, seizure Endocrine: Reports: no symptoms Hematologic/Lymphatic: Reports: no symptoms Allergies: Coded Allergies: No Known Allergies (Unverified , 11/08/18) All Systems: reviewed and negative except above Subjective no events. awake but nonverbal. no szs. old gt- poor flow. Objective Last 24 Hour Vital Signs Date Time Temp Pulse Resp B/P (MAP) Pulse Ox O2 Delivery O2 Flow Rate FiO2 11/16/18 14:57 89 20 100 Nasal Cannula 2.0 11/16/18 14:46 84 18 99 Nasal Cannula 2.0 28 11/16/18 12:00 99.6 94 18 115/68 (84) 100 11/16/18 09:09 99.4 11/16/18 08:30 Nasal Cannula 2.0 11/16/18 08:12 85 20 98 Nasal Cannula 2.0 28 11/16/18 08:02 83 20 98 Nasal Cannula 2.0 28 11/16/18 08:02 98 Nasal Cannula 2.0 28 11/16/18 08:00 100.5 96 18 115/73 (87) 95 11/16/18 04:00 99.1 91 18 110/101 (104) 95 11/16/18 01:14 88 20 98 Nasal Cannula 2.0 28 11/16/18 01:04 77 20 97 Nasal Cannula 2.0 28 11/16/18 00:00 98.6 92 18 121/68 (85) 95 11/15/18 21:00 Nasal Cannula 2.0 11/15/18 20:00 99.1 72 17 125/70 (88) 98 11/15/18 19:56 77 20 100 Nasal Cannula 2.0 28 11/15/18 19:45 100 Nasal Cannula 2.0 28 11/15/18 19:45 83 20 100 Nasal Cannula 2.0 28 11/15/18 16:00 98.5 69 19 130/69 (89) 94 Intake and Output 11/15/18 11/16/18 19:00 07:00 Intake Total 50 ml 660 ml Balance 50 ml 660 ml IV Total 50 ml 660 ml # Voids 3 # Bowel Movements 3 Height (Feet): 5 Height (Inches): 3.00 Weight (Pounds): 124 Objective General Appearance: WD/WN, alert, confused Neck: normal alignment, supple Cardiovascular: normal rate Respiratory/Chest: chest wall non-tender, lungs clear, normal breath sounds, no respiratory distress, no accessory muscle use Abdomen: normal bowel sounds, non tender, soft, no organomegaly, no mass Edema: no edema noted Arm (L), no edema noted Arm (R), no edema noted Leg (L), no edema noted Leg (R), no edema noted Pedal (L), no edema noted Pedal (R), no edema noted Generalized Neurologic: unresponsive, aphasia Jasper Starr MD Nov 16, 2018 15:26
[2018-11-16 16:00] VITALS: BP 139/78
--- NOTE | 2018-11-16 17:48 | Surgery Progress Note ---
Surgery Progress Note Subjective Additional Comments No acute events. Stable. Wound evaluated and has significantly improved but still open but very small. Minimal drainage at this point. Incontinence. Objective Last 24 Hour Vital Signs Date Time Temp Pulse Resp B/P (MAP) Pulse Ox O2 Delivery O2 Flow Rate FiO2 11/16/18 16:00 99.6 78 18 139/78 (98) 95 11/16/18 14:57 89 20 100 Nasal Cannula 2.0 28 11/16/18 14:46 84 18 99 Nasal Cannula 2.0 28 11/16/18 12:00 99.6 94 18 115/68 (84) 100 11/16/18 09:09 99.4 11/16/18 08:30 Nasal Cannula 2.0 11/16/18 08:12 85 20 98 Nasal Cannula 2.0 28 11/16/18 08:02 83 20 98 Nasal Cannula 2.0 28 11/16/18 08:02 98 Nasal Cannula 2.0 28 11/16/18 08:00 100.5 96 18 115/73 (87) 95 11/16/18 04:00 99.1 91 18 110/101 (104) 95 11/16/18 01:14 88 20 98 Nasal Cannula 2.0 28 11/16/18 01:04 77 20 97 Nasal Cannula 2.0 28 11/16/18 00:00 98.6 92 18 121/68 (85) 95 11/15/18 21:00 Nasal Cannula 2.0 11/15/18 20:00 99.1 72 17 125/70 (88) 98 11/15/18 19:56 77 20 100 Nasal Cannula 2.0 28 11/15/18 19:45 100 Nasal Cannula 2.0 28 11/15/18 19:45 83 20 100 Nasal Cannula 2.0 28 I&O Intake and Output 11/15/18 11/16/18 19:00 07:00 Intake Total 50 ml 660 ml Balance 50 ml 660 ml IV Total 50 ml 660 ml # Voids 3 # Bowel Movements 3 Dressing: saturated Wound: clean Cardiovascular: RSR Respiratory: clear Abdomen: soft, flat, non-tender, present bowel sounds Extremities: other Plan Problems: (1) Decubitus skin ulcer (2) Cellulitis of buttock, right Assessment & Plan: Full thickness pressure injury R buttocks oozing purulent exudate with trace amt of slough.(L)0.7cm x (W)1.2cm x (D)2.1cm,Tunneling clockwise @11o'clock by 3.3cm.Periwound is indurated with hyperpigmentation. Historical scars noted to L buttocks. Given Fevers and still drainage of wound will obtain CT pelvis to ensure no deep pocket or tunneling abscess need to monitor for incontinence and change dressings often to ensure clean CT with * Skin thickening and soft tissue infiltration overlying the right aspect of the lower sacrum raising question for decubitus ulcer. Correlation with physical exam is recommended. No bony changes in the underlying sacrum to suggest osteomyelitis. No subcutaneous fluid collection to suggest abscess. overall slowly improving cont with wound care no planned surgery at this time will cont to monitor and help heal wound cont with dressings appreciate great nursing care Ruddy Elias Nov 16, 2018 17:48
--- NOTE | 2018-11-16 19:10 | NUR ---
HAND-OFF: Report given to HOLLY Harris.
--- NOTE | 2018-11-16 19:43 | NUR ---
CASE MANAGEMENT: REVIEW SI: SEIZURE DISORDER . CELLULITIS/ULCER RIGHT BUTTOCK . T 99.6 HR 78 RR 18 BP 139/78 SAT 99% NC/2L IS: ALBUTEROL HHN Q6HR NS IVF @50ML/HR CEFAZOLIN IV Q8HR FENTANYL PATCH Q72HR HEPARIN SUBQ Q12HR CONTINUE WOUND CARE MED/SURG UNIT STATUS DCP: PATIENT IS FROM HOME
[2018-11-16 20:00] VITALS: BP 126/76
--- NOTE | 2018-11-16 20:39 | NUR ---
NURSE NOTES: RECEIVED PT FROM HOLLY SYLVESTER. PT IS ASLEEP, NON-VERBAL, ON NC 2L. NO ACUTE DISTRESS NOTED. PT APPEAR DIAPHORETIC, TEMP IS 99.8. MD IS AWARE OF FEVER. IV ON LEFT WRIST IS INTACT AND PATENT. SEIZURE PRECAUTION IMPLEMENTED. SIDE RAILS PADDED. G-TUBE FEEDING IS INTACT AND PATENT, NO RESIDUALS, PT IS TOLERATING FEEDING WELL. G-TUBE SITE APPEAR RED, DR. JOSEPH IS AWARE. DRESSINGS ON BUTTOCK IS INTACT. OPTIFOAM NOTED ON BILATERAL HEELS AND SACRAL FOR PROTECTION. BED IS LOCKED AT THE LOWEST POSITION, BED ALARMS ACTIVE, SIDE RAILS UP X2 AND CALL LIGHT IS WITHIN REACH. WILL CONTINUE TO MONITOR.
[2018-11-16] MEDS: QUEtiapine 200mg tab GT SCH (21:24)
--- NOTE | 2018-11-16 22:15 | Progress Note ---
DATE: 11/15/2018 CARDIOLOGY PROGRESS NOTE SUBJECTIVE: The patient was seen and evaluated. Case discussed with consulting staff. The patient's fevers have dissipated. She appears to be more comfortable. OBJECTIVE: VITAL SIGNS: Blood pressure 130/69, pulse 69, respirations 19, and afebrile. LUNGS: Clear. CARDIAC: Regular. Normal S1, S2. ABDOMEN: Soft. G-tube intact. There is episodes with clogging. EXTREMITIES: No edema. Wound site has dressing in place. LABORATORY DATA: White count 12.2 and hemoglobin 11.4. Potassium 3.5. BUN 14 and creatinine 0.5. IMPRESSION: 1. Hypokalemia, improving with likely total body potassium deficit. 2. Sacral wounds with cellulitis. 3. Aspiration risk. 4. G-tube dependent. 5. Advanced neuromuscular disease. 6. Chronic pain due to neuropathy. PLAN: 1. Antimicrobials. 2. Wound care. 3. G-tube to be replaced. 4. Continued nutrition. 5. Discontinue IV fluids once G-tube has been replaced. 6. DVT prophylaxis. Mario Alberto Merlos M.D. DR: SUDARSHAN JOB#: [id number] CC:
--- NOTE | 2018-11-16 22:30 | Progress Note ---
DATE: 11/16/2018 SUBJECTIVE: The patient is calm during my evaluation. Confused, disoriented, and not engaged during the evaluation. The patient continues to yell and scream and gets agitated. MENTAL STATUS EXAMINATION: The patient is alert, confused. Mood is anxious. Affect is flat. Thought process, there is a paucity of thought content. Thought content, no suicidal or homicidal ideations. Memory, concentration, and attention is impaired. Insight and judgment non-existent. ASSESSMENT: 1. Chronic encephalopathy. 2. Anxiety disorder. PLAN: 1. We will continue the low-dose of antipsychotics. 2. Provide the patient reality orientation. 3. Discussed the case with the nurse. Raghu Charles M.D. DR: MARILYN JOB#: [id number] CC:
--- NOTE | 2018-11-16 22:45 | Progress Note ---
DATE: 11/16/2018 CARDIOLOGY PROGRESS NOTE SUBJECTIVE: Status . G-tube needs to be replaced. It is quite old. OBJECTIVE: VITAL SIGNS: Vitals are stable. T-max 100.5, blood pressure 115/68, pulse 94, and respirations 18. LUNGS: Diminished breath sounds. No wheezing. HEART: Regular rhythm and rate. Normal S1, S2. ABDOMEN: Soft. G-tube intact. EXTREMITIES: No edema. Diffuse rigidity and spasticity. IMPRESSION: 1. Neuromuscular disorder. 2. Toxic and metabolic encephalopathies. 3. Decubitus with cellulitis and sepsis. 4. Aspiration dysphagia with G-tube. 5. Hypokalemia. 6. Mild protein-calorie malnutrition. PLAN: 1. G-tube to be changed. 2. Recheck potassium. 3. Continue DVT prophylaxis. 4. Antimicrobials as is. 5. Skin care. 6. We will adjust intravenous fluids based on clinical parameters. 7. We will follow as needed. Mario Alberto Merlos M.D. DR: SUDARSHAN JOB#: [id number] CC:
[2018-11-17] VITALS: BP 118/71
[2018-11-17 04:00] VITALS: BP 129/71
[2018-11-17] MEDS: ceFAZolin sod 1 GM in D5W 55 ML IVPB SCH ×3 (06:04→22:23)
[2018-11-17 07:10] LABS: ALANINE AMINOTRANSFERASE 154 U/L (12-78); ALBUMIN 3.4 G/DL (3.4-5.0); ALBUMIN/GLOBULIN RATIO 0.9 (1.0-2.7); ALKALINE PHOSPHATASE 115 U/L (46-116); ANION GAP 8 mmol/L (5-15); ASPARTATE AMINO TRANSFERASE 159 U/L (15-37); BILIRUBIN,TOTAL 0.3 MG/DL (0.2-1.0); BLOOD UREA NITROGEN 11 mg/dL (7-18); CALCIUM 9.3 MG/DL (8.5-10.1); CARBON DIOXIDE 26 MMOL/L (21-32); CHLORIDE 104 MMOL/L (98-107); CREATININE 0.5 MG/DL (0.55-1.30); POTASSIUM 3.6 MMOL/L (3.5-5.1); SODIUM 138 MMOL/L (136-145)
[2018-11-17 07:13] LABS: BASOPHILS % (AUTO) 0.7 % (0.0-2.0); EOSINOPHILS % (AUTO) 2.8 % (0.0-3.0); HEMATOCRIT 41.4 % (37.0-47.0); LYMPHOCYTES % (AUTO) 10.2 % (20.0-45.0); MEAN CORPUSCULAR VOLUME 98 FL (80-99); MONOCYTES % (AUTO) 7.9 % (1.0-10.0); NEUTROPHILS % (AUTO) 78.5 % (45.0-75.0); PLATELET COUNT 260 K/UL (150-450); RED BLOOD COUNT 4.22 M/UL (4.20-5.40); RED CELL DISTRIBUTION WIDTH 13.6 % (11.6-14.8); WHITE BLOOD COUNT 9.4 K/UL (4.8-10.8)
--- NOTE | 2018-11-17 07:51 | NUR ---
pt resting in bed. A/O x 0, non-verbal. no SOB noted. side rails padded. pts on Gtube feeding,rate of 45cc/hr. no redness around GT site, open to air. VS stable. Dressing CDI. IVF infusing. right eye redness. fall precaution maintained. will continue to monitor.
[2018-11-17 08:00] VITALS: BP 121/75
--- NOTE | 2018-11-17 08:15 | NUR ---
HAND-OFF: Report given to HOLLY HOPPER.
[2018-11-17] MEDS: Heparin 5000 units/ml inj SUBQ SCH ×2 (08:27→20:41)
--- NOTE | 2018-11-17 08:28 | NUR ---
NURSE NOTES: Pts on 95-96% RA. will continue to monitor
--- NOTE | 2018-11-17 10:14 | General Progress Note ---
Assessment/Plan Status: stable, progressing Assessment/Plan: Assessment - Quadroplegia, contratures - dysphagia, s/p GT change - abnormal LFT, ? etiology Recommendations - continue TF - GT care - check abd u/s Subjective Allergies: Coded Allergies: No Known Allergies (Unverified , 11/08/18) Subjective above noted non communicative GT changed by this MD at beside with 20 Fr Balloon tip replacement catheter LFT higher today Objective Last 24 Hour Vital Signs Date Time Temp Pulse Resp B/P (MAP) Pulse Ox O2 Delivery O2 Flow Rate FiO2 11/17/18 08:00 98.4 98 20 121/75 (90) 97 11/17/18 04:00 99.7 72 24 129/71 (90) 99 11/17/18 01:26 Nasal Cannula 2.0 28 11/17/18 01:25 Nasal Cannula 2.0 28 11/17/18 00:00 99.0 69 20 118/71 (87) 99 11/16/18 21:00 Nasal Cannula 2.0 11/16/18 20:00 99.8 89 24 126/76 (93) 99 11/16/18 19:52 80 18 99 Nasal Cannula 2.0 28 11/16/18 19:40 98 Nasal Cannula 2.0 28 11/16/18 19:40 77 18 97 Nasal Cannula 2.0 28 11/16/18 16:00 99.6 78 18 139/78 (98) 95 11/16/18 14:57 89 20 100 Nasal Cannula 2.0 28 11/16/18 14:46 84 18 99 Nasal Cannula 2.0 28 11/16/18 12:00 99.6 94 18 115/68 (84) 100 Intake and Output 11/16/18 11/17/18 19:00 07:00 Intake Total 615 ml 655 ml Output Total 250 ml Balance 615 ml 405 ml Intake Free Water 120 ml IV Total 655 ml Tube Feeding 495 ml Output Urine Total 250 ml # Voids 3 # Bowel Movements 1 4 Laboratory Tests 11/17/18 06:04: White Blood Count 9.4, Red Blood Count 4.22, Hemoglobin 14.0, Hematocrit 41.4, Mean Corpuscular Volume 98, Mean Corpuscular Hemoglobin 33.2H, Mean Corpuscular Hemoglobin Concent 33.8, Red Cell Distribution Width 13.6, Platelet Count 260, Mean Platelet Volume 7.0, Neutrophils (%) (Auto) 78.5H, Lymphocytes (%) (Auto) 10.2L, Monocytes (%) (Auto) 7.9, Eosinophils (%) (Auto) 2.8, Basophils (%) (Auto ) 0.7, Sodium Level 138, Potassium Level 3.6, Chloride Level 104, Carbon Dioxide Level 26, Anion Gap 8, Blood Urea Nitrogen 11, Creatinine 0.5L, Estimat Glomerular Filtration Rate > 60, Glucose Level 122H, Calcium Level 9.3, Magnesium Level 2.2, Total Bilirubin 0.3, Aspartate Amino Transf (AST/SGOT) 159H , Alanine Aminotransferase (ALT/SGPT) 154H, Alkaline Phosphatase 115, Total Protein 7.3, Albumin 3.4, Globulin 3.9, Albumin/Globulin Ratio 0.9L Height (Feet): 5 Height (Inches): 3.00 Weight (Pounds): 124 Objective Debilitated Noncommunicative woman NCAT supple CTA RR Abd Soft (+) GT (++) contractures OBS Alex Joseph MD Nov 17, 2018 10:14
[2018-11-17 12:00] VITALS: BP 116/72
--- NOTE | 2018-11-17 14:13 | NUR ---
NURSE NOTES: R buttock Dressing changed per order.
[2018-11-17] MEDS: 1/2NS w/KCl 20mEq 1000ml 1,000 ML IV SCH (14:18)
--- NOTE | 2018-11-17 14:40 | Surgery Progress Note ---
Surgery Progress Note Subjective Additional Comments no acute events Objective Last 24 Hour Vital Signs Date Time Temp Pulse Resp B/P (MAP) Pulse Ox O2 Delivery O2 Flow Rate FiO2 11/17/18 12:00 98.3 88 18 116/72 (87) 96 11/17/18 09:00 Nasal Cannula 2.0 11/17/18 08:00 98.4 98 20 121/75 (90) 97 11/17/18 04:00 99.7 72 24 129/71 (90) 99 11/17/18 01:26 Nasal Cannula 2.0 28 11/17/18 01:25 Nasal Cannula 2.0 28 11/17/18 00:00 99.0 69 20 118/71 (87) 99 11/16/18 21:00 Nasal Cannula 2.0 11/16/18 20:00 99.8 89 24 126/76 (93) 99 11/16/18 19:52 80 18 99 Nasal Cannula 2.0 28 11/16/18 19:40 98 Nasal Cannula 2.0 28 11/16/18 19:40 77 18 97 Nasal Cannula 2.0 28 11/16/18 16:00 99.6 78 18 139/78 (98) 95 11/16/18 14:57 89 20 100 Nasal Cannula 2.0 28 11/16/18 14:46 84 18 99 Nasal Cannula 2.0 28 I&O Intake and Output 11/16/18 11/17/18 19:00 07:00 Intake Total 615 ml 655 ml Output Total 250 ml Balance 615 ml 405 ml Intake Free Water 120 ml IV Total 655 ml Tube Feeding 495 ml Output Urine Total 250 ml # Voids 3 # Bowel Movements 1 4 Dressing: saturated Wound: clean Drains: other Cardiovascular: RSR Respiratory: clear, decreased breath sounds Abdomen: soft, present bowel sounds Extremities: no cyanosis Laboratory Tests Test 11/17/18 06:04 White Blood Count 9.4 K/UL (4.8-10.8) Red Blood Count 4.22 M/UL (4.20-5.40) Hemoglobin 14.0 G/DL (12.0-16.0) Hematocrit 41.4 % (37.0-47.0) Mean Corpuscular Volume 98 FL (80-99) Mean Corpuscular Hemoglobin 33.2 PG (27.0-31.0) H Mean Corpuscular Hemoglobin Concent 33.8 G/DL (32.0-36.0) Red Cell Distribution Width 13.6 % (11.6-14.8) Platelet Count 260 K/UL (150-450) Mean Platelet Volume 7.0 FL (6.5-10.1) Neutrophils (%) (Auto) 78.5 % (45.0-75.0) H Lymphocytes (%) (Auto) 10.2 % (20.0-45.0) L Monocytes (%) (Auto) 7.9 % (1.0-10.0) Eosinophils (%) (Auto) 2.8 % (0.0-3.0) Basophils (%) (Auto) 0.7 % (0.0-2.0) Sodium Level 138 MMOL/L (136-145) Potassium Level 3.6 MMOL/L (3.5-5.1) Chloride Level 104 MMOL/L (98-107) Carbon Dioxide Level 26 MMOL/L (21-32) Anion Gap 8 mmol/L (5-15) Blood Urea Nitrogen 11 mg/dL (7-18) Creatinine 0.5 MG/DL (0.55-1.30) L Estimat Glomerular Filtration Rate > 60 mL/min (>60) Glucose Level 122 MG/DL (74-106) H Calcium Level 9.3 MG/DL (8.5-10.1) Magnesium Level 2.2 MG/DL (1.8-2.4) Total Bilirubin 0.3 MG/DL (0.2-1.0) Aspartate Amino Transf (AST/SGOT) 159 U/L (15-37) H Alanine Aminotransferase (ALT/SGPT) 154 U/L (12-78) H Alkaline Phosphatase 115 U/L (46-116) Total Protein 7.3 G/DL (6.4-8.2) Albumin 3.4 G/DL (3.4-5.0) Globulin 3.9 g/dL Albumin/Globulin Ratio 0.9 (1.0-2.7) L Plan Problems: (1) Decubitus skin ulcer (2) Cellulitis of buttock, right Assessment & Plan: Full thickness pressure injury R buttocks oozing purulent exudate with trace amt of slough.(L)0.7cm x (W)1.2cm x (D)2.1cm,Tunneling clockwise @11o'clock by 3.3cm.Periwound is indurated with hyperpigmentation. Historical scars noted to L buttocks. Given Fevers and still drainage of wound will obtain CT pelvis to ensure no deep pocket or tunneling abscess need to monitor for incontinence and change dressings often to ensure clean CT with * Skin thickening and soft tissue infiltration overlying the right aspect of the lower sacrum raising question for decubitus ulcer. Correlation with physical exam is recommended. No bony changes in the underlying sacrum to suggest osteomyelitis. No subcutaneous fluid collection to suggest abscess. overall slowly improving cont with wound care no planned surgery at this time will cont to monitor and help heal wound cont with dressings appreciate great nursing care Ruddy Elias Nov 17, 2018 14:40
--- NOTE | 2018-11-17 15:53 | General Progress Note ---
Assessment/Plan Problem List: (1) Encephalopathy acute ICD Codes: G93.40 - Encephalopathy, unspecified SNOMED: 30106061, 134678664 (2) Anemia ICD Codes: D64.9 - Anemia, unspecified SNOMED: 370012741 (3) Decubitus skin ulcer ICD Codes: L89.90 - Pressure ulcer of unspecified site, unspecified stage SNOMED: 554998384 Qualifiers: (4) Seizure disorder ICD Codes: G40.909 - Epilepsy, unspecified, not intractable, without status epilepticus SNOMED: 154419382 (5) Cellulitis of buttock, right ICD Codes: L03.317 - Cellulitis of buttock SNOMED: 90798075 Status: stable, progressing Assessment/Plan: cont current rx gt feeds dc ivf wound care abx per id sz rx repeat LFTs in am ?dc planning to snf. Subjective ROS Limited/Unobtainable: Yes Constitutional: Reports: malaise, weakness HEENT: Reports: no symptoms Cardiovascular: Reports: no symptoms Respiratory: Reports: no symptoms Gastrointestinal/Abdominal: Reports: difficulty swallowing Genitourinary: Reports: no symptoms Neurologic/Psychiatric: Reports: pre-existing deficit Endocrine: Reports: no symptoms Hematologic/Lymphatic: Reports: no symptoms Allergies: Coded Allergies: No Known Allergies (Unverified , 11/08/18) All Systems: reviewed and negative except above Subjective no events. on ivf and tube feeds. no report of szs. nonverbal at baseline. elevated lfts on labs today Objective Last 24 Hour Vital Signs Date Time Temp Pulse Resp B/P (MAP) Pulse Ox O2 Delivery O2 Flow Rate FiO2 11/17/18 12:00 98.3 88 18 116/72 (87) 96 11/17/18 09:00 Nasal Cannula 2.0 11/17/18 08:00 98.4 98 20 121/75 (90) 97 11/17/18 04:00 99.7 72 24 129/71 (90) 99 11/17/18 01:26 Nasal Cannula 2.0 28 11/17/18 01:25 Nasal Cannula 2.0 28 11/17/18 00:00 99.0 69 20 118/71 (87) 99 11/16/18 21:00 Nasal Cannula 2.0 11/16/18 20:00 99.8 89 24 126/76 (93) 99 11/16/18 19:52 80 18 99 Nasal Cannula 2.0 28 11/16/18 19:40 98 Nasal Cannula 2.0 28 11/16/18 19:40 77 18 97 Nasal Cannula 2.0 28 11/16/18 16:00 99.6 78 18 139/78 (98) 95 Intake and Output 11/16/18 11/17/18 19:00 07:00 Intake Total 615 ml 655 ml Output Total 250 ml Balance 615 ml 405 ml Intake Free Water 120 ml IV Total 655 ml Tube Feeding 495 ml Output Urine Total 250 ml # Voids 3 # Bowel Movements 1 4 Laboratory Tests 11/17/18 06:04: White Blood Count 9.4, Red Blood Count 4.22, Hemoglobin 14.0, Hematocrit 41.4, Mean Corpuscular Volume 98, Mean Corpuscular Hemoglobin 33.2H, Mean Corpuscular Hemoglobin Concent 33.8, Red Cell Distribution Width 13.6, Platelet Count 260, Mean Platelet Volume 7.0, Neutrophils (%) (Auto) 78.5H, Lymphocytes (%) (Auto) 10.2L, Monocytes (%) (Auto) 7.9, Eosinophils (%) (Auto) 2.8, Basophils (%) (Auto ) 0.7, Sodium Level 138, Potassium Level 3.6, Chloride Level 104, Carbon Dioxide Level 26, Anion Gap 8, Blood Urea Nitrogen 11, Creatinine 0.5L, Estimat Glomerular Filtration Rate > 60, Glucose Level 122H, Calcium Level 9.3, Magnesium Level 2.2, Total Bilirubin 0.3, Aspartate Amino Transf (AST/SGOT) 159H , Alanine Aminotransferase (ALT/SGPT) 154H, Alkaline Phosphatase 115, Total Protein 7.3, Albumin 3.4, Globulin 3.9, Albumin/Globulin Ratio 0.9L Height (Feet): 5 Height (Inches): 3.00 Weight (Pounds): 124 Objective General Appearance: WD/WN, alert, confused Neck: normal alignment, supple Cardiovascular: normal rate Respiratory/Chest: chest wall non-tender, lungs clear, normal breath sounds, no respiratory distress, no accessory muscle use Abdomen: normal bowel sounds, non tender, soft, no organomegaly, no mass Edema: no edema noted Arm (L), no edema noted Arm (R), no edema noted Leg (L), no edema noted Leg (R), no edema noted Pedal (L), no edema noted Pedal (R), no edema noted Generalized Neurologic: unresponsive, aphasia Jasper Starr MD Nov 17, 2018 15:53
[2018-11-17 16:00] VITALS: BP 140/85
--- NOTE | 2018-11-17 16:14 | Infectious Diseases Prog Note ---
Assessment/Plan Assessment/Plan IMPRESSION: Sepsis Positive blood culture, likely contamination Seizures Disorder Infected right hip pressure ulcer Quadriplegia Neurodegenerative disorder. Hypokalemia Fecal impaction RECOMMENDATION: We will continue with Ancef X 1 day Subjective ROS Limited/Unobtainable: Yes Constitutional: Denies: fever Allergies: Coded Allergies: No Known Allergies (Unverified , 11/08/18) Objective Vital Signs Last 24 Hour Vital Signs Date Time Temp Pulse Resp B/P (MAP) Pulse Ox O2 Delivery O2 Flow Rate FiO2 11/17/18 12:00 98.3 88 18 116/72 (87) 96 11/17/18 09:00 Nasal Cannula 2.0 11/17/18 08:00 98.4 98 20 121/75 (90) 97 11/17/18 04:00 99.7 72 24 129/71 (90) 99 11/17/18 01:26 Nasal Cannula 2.0 28 11/17/18 01:25 Nasal Cannula 2.0 28 11/17/18 00:00 99.0 69 20 118/71 (87) 99 11/16/18 21:00 Nasal Cannula 2.0 11/16/18 20:00 99.8 89 24 126/76 (93) 99 11/16/18 19:52 80 18 99 Nasal Cannula 2.0 28 11/16/18 19:40 98 Nasal Cannula 2.0 28 11/16/18 19:40 77 18 97 Nasal Cannula 2.0 28 Height (Feet): 5 Height (Inches): 3.00 Weight (Pounds): 124 General Appearance: no acute distress HEENT: mucous membranes moist Respiratory/Chest: lungs clear Cardiovascular: normal rate Abdomen: soft, non tender, other - GT feeing Extremities: no edema, other - contracted Neurologic/Psychiatric: aphasia Laboratory Tests Test 11/17/18 06:04 White Blood Count 9.4 K/UL (4.8-10.8) Red Blood Count 4.22 M/UL (4.20-5.40) Hemoglobin 14.0 G/DL (12.0-16.0) Hematocrit 41.4 % (37.0-47.0) Mean Corpuscular Volume 98 FL (80-99) Mean Corpuscular Hemoglobin 33.2 PG (27.0-31.0) H Mean Corpuscular Hemoglobin Concent 33.8 G/DL (32.0-36.0) Red Cell Distribution Width 13.6 % (11.6-14.8) Platelet Count 260 K/UL (150-450) Mean Platelet Volume 7.0 FL (6.5-10.1) Neutrophils (%) (Auto) 78.5 % (45.0-75.0) H Lymphocytes (%) (Auto) 10.2 % (20.0-45.0) L Monocytes (%) (Auto) 7.9 % (1.0-10.0) Eosinophils (%) (Auto) 2.8 % (0.0-3.0) Basophils (%) (Auto) 0.7 % (0.0-2.0) Sodium Level 138 MMOL/L (136-145) Potassium Level 3.6 MMOL/L (3.5-5.1) Chloride Level 104 MMOL/L (98-107) Carbon Dioxide Level 26 MMOL/L (21-32) Anion Gap 8 mmol/L (5-15) Blood Urea Nitrogen 11 mg/dL (7-18) Creatinine 0.5 MG/DL (0.55-1.30) L Estimat Glomerular Filtration Rate > 60 mL/min (>60) Glucose Level 122 MG/DL (74-106) H Calcium Level 9.3 MG/DL (8.5-10.1) Magnesium Level 2.2 MG/DL (1.8-2.4) Total Bilirubin 0.3 MG/DL (0.2-1.0) Aspartate Amino Transf (AST/SGOT) 159 U/L (15-37) H Alanine Aminotransferase (ALT/SGPT) 154 U/L (12-78) H Alkaline Phosphatase 115 U/L (46-116) Total Protein 7.3 G/DL (6.4-8.2) Albumin 3.4 G/DL (3.4-5.0) Globulin 3.9 g/dL Albumin/Globulin Ratio 0.9 (1.0-2.7) L Current Medications Medications (Trade) Dose Ordered Sig/Alex Route PRN Reason Start Time Stop Time Status Last Admin Dose Admin Acetaminophen (Tylenol) 650 mg Q4H PRN ORAL Mild Pain/Temp > 100.5 11/09/18 11:30 12/09/18 11:29 11/16/18 08:39 Cefazolin Sodium 1 gm/Dextrose 55 ml @ 110 mls/hr Q8HR IVPB 11/12/18 22:00 11/19/18 21:59 11/17/18 14:00 Fentanyl (Duragesic) 1 patch Q72H TDERMAL 11/18/18 18:00 11/25/18 17:59 Fentanyl (Duragesic) 1 patch Q72H TDERMAL 11/09/18 18:00 11/18/18 17:59 11/15/18 17:47 Heparin Sodium (Porcine) (Heparin 5000 units/ml) 5,000 units EVERY 12 HOURS SUBQ 11/10/18 09:00 12/10/18 08:59 11/17/18 08:27 Levetiracetam (Keppra) 1,000 mg BEDTIME ORAL 11/09/18 21:00 12/09/18 20:59 11/16/18 21:24 Magnesium Hydroxide (Mom) 30 ml DAILYPRN PRN ORAL Constipation 11/11/18 17:30 12/11/18 17:29 11/13/18 15:35 Miscellaneous Medication (fentaNYL Destruction) 1 ea Q72H MISC 11/12/18 17:59 12/12/18 17:58 11/15/18 17:50 Morphine Sulfate (Morphine 10mg/ 5ml Oral Soln) 5 mg Q4H PRN GT For Pain 11/09/18 15:00 12/08/18 23:29 11/13/18 15:36 Quetiapine Fumarate (SEROquel) 25 mg Q6H PRN GT For Anxiety 11/09/18 15:00 12/09/18 14:59 11/13/18 17:27 Quetiapine Fumarate (SEROquel) 200 mg BEDTIME GT 11/11/18 21:00 12/09/18 20:59 11/16/18 21:24 Vern López MD Nov 17, 2018 16:14
--- NOTE | 2018-11-17 19:30 | Consultation ---
DATE OF CONSULTATION: 11/16/2018 GASTROENTEROLOGY CONSULTATION CONSULTING PHYSICIAN: Alex Joseph M.D. CHIEF COMPLAINT: I was asked to see this patient by Dr. Jasper Starr and Dr. Mario Alberto Merlos for evaluation of deteriorated gastrostomy tube. HISTORY OF PRESENT ILLNESS: The patient is an unfortunate 43-year-old woman who was brought into the hospital due to multiple seizures. The patient has had a neurodegenerative disease and is bedbound. She was previously very ill at the hospice care. She has a gastrostomy tube placed some time ago for and the gastrostomy tube has been noted to be deteriorated. It appears to be original gastrostomy and long length tube. It is however still functional. PAST MEDICAL HISTORY: History of neurodegenerative disorder, quadriplegia, dementia, pressure ulcer, status gastrostomy tube placement. ALLERGIES: None. FAMILY HISTORY: Unavailable and noncontributory. SOCIAL HISTORY: The patient is a long-term longterm resident. She is here in the hospital for care. REVIEW OF SYSTEMS: Otherwise negative. PHYSICAL EXAMINATION: GENERAL: Debilitated woman who was not responsive, seen in her room. HEENT: Normocephalic and atraumatic. Sclerae anicteric. Dentition is poor. NECK: Supple. CHEST: Clear to auscultation. CARDIOVASCULAR: Revealed regular rate. ABDOMEN: Soft. An old gastrostomy tube was identified and it was old and deteriorated; although, still patent. Currently needs to be replaced. EXTREMITIES: Contracture deformities in all four. NEUROLOGIC: Notable for dementia and catatonic vegetative state. LABORATORY DATA: Noted. ASSESSMENT: This patient presents with an old gastrostomy tube that should be replaced on this admission. This can be done at bedside and I will ask the central supply to provide a gastrostomy tube replacement. In the meantime, the gastrostomy catheter should be flushed frequently to avoid occlusion. Once it has been replaced with a balloon tip catheter, then every 3 months exchange is typically necessary. RECOMMENDATIONS: Per above discussion and per orders in the chart. Thank you for asking me to participate in the care of this patient. Alex Joseph M.D. DR: ASHLEY JOB#: [id number] CC: LUANN
--- NOTE | 2018-11-17 19:43 | NUR ---
NURSE NOTES: Received report from HOLLY Sahu. Patient nonverbal, sometimes reacts to name. On nasal cannula 2L/min. No signs of distress or labored breathing. IV intact, patent, and saline locked. GT intact, patent, and infusing feeding. Bed in lowest position with HOB above 30 degrees. Will continue with plan of care.
--- NOTE | 2018-11-17 19:45 | NUR ---
HAND-OFF: Report given to Angelia BARRERA.
[2018-11-17 20:00] VITALS: BP 128/78
[2018-11-17] MEDS: QUEtiapine 200mg tab GT SCH (20:39)
[2018-11-18] VITALS: BP 119/76
--- NOTE | 2018-11-18 00:45 | Progress Note ---
DATE: 11/17/2018 SUBJECTIVE: The patient is afraid, not yelling today. Less agitated, confused, and disoriented. MENTAL STATUS EXAM: The patient is alert and disoriented. Mood is agitated. Affect is flat. Thought process, there is a paucity of thought content. Thought content, no suicidal or homicidal ideations. ASSESSMENT: dementia with behavioral disorder. PLAN: We will continue current medications. Provide the patient with reality orientation and supportive therapy. Raghu Charles M.D. DR: BRIANA JOB#: [id number] CC: LUANN
[2018-11-18 04:00] VITALS: BP 124/78
[2018-11-18] MEDS: ceFAZolin sod 1 GM in D5W 55 ML IVPB SCH (06:01)
[2018-11-18 06:55] LABS: ALANINE AMINOTRANSFERASE 143 U/L (12-78); ALBUMIN 3.3 G/DL (3.4-5.0); ALBUMIN/GLOBULIN RATIO 0.9 (1.0-2.7); ALKALINE PHOSPHATASE 123 U/L (46-116); ANION GAP 9 mmol/L (5-15); ASPARTATE AMINO TRANSFERASE 124 U/L (15-37); BILIRUBIN,TOTAL 0.3 MG/DL (0.2-1.0); BLOOD UREA NITROGEN 11 mg/dL (7-18); CALCIUM 8.6 MG/DL (8.5-10.1); CARBON DIOXIDE 24 MMOL/L (21-32); CHLORIDE 105 MMOL/L (98-107); CREATININE 0.5 MG/DL (0.55-1.30); POTASSIUM 3.8 MMOL/L (3.5-5.1); SODIUM 138 MMOL/L (136-145)
[2018-11-18 07:19] LABS: CREATINE KINASE 202 U/L (26-308)
[2018-11-18 08:00] VITALS: BP 108/68
--- NOTE | 2018-11-18 08:04 | NUR ---
HAND-OFF: Report given to HOLLY Kerr.
--- NOTE | 2018-11-18 08:05 | NUR ---
NURSE NOTES: Recieved report and patient from HOLLY Blackwell in bed resting. Patient is on G-Tube feeding, however, patient is NPO pending procedure. IV is intact and patent. Noted patient is contracted, have cellulitis on right buttock. Bed is in lowest position, brakes engaged for safety, call light is within reach. Will continue with the plan of care.
[2018-11-18] MEDS: Heparin 5000 units/ml inj SUBQ SCH (08:58)
[2018-11-18 12:00] VITALS: BP 108/67
--- NOTE | 2018-11-18 12:03 | Infectious Diseases Prog Note ---
Assessment/Plan Assessment/Plan IMPRESSION: Sepsis Positive blood culture, likely contamination Seizures Disorder Infected right hip pressure ulcer Quadriplegia Neurodegenerative disorder. Hypokalemia Fecal impaction RECOMMENDATION: Discontinue Ancef Wound care Observe off antibiotic Subjective ROS Limited/Unobtainable: Yes Constitutional: Denies: fever Allergies: Coded Allergies: No Known Allergies (Unverified , 11/08/18) Objective Vital Signs Last 24 Hour Vital Signs Date Time Temp Pulse Resp B/P (MAP) Pulse Ox O2 Delivery O2 Flow Rate FiO2 11/18/18 09:00 Nasal Cannula 2.0 11/18/18 08:00 98.4 92 18 108/68 (81) 95 11/18/18 04:00 97.5 99 18 124/78 (93) 94 11/18/18 00:00 98.6 114 19 119/76 (90) 91 11/17/18 21:00 Nasal Cannula 2.0 11/17/18 20:00 98.5 89 18 128/78 (95) 96 11/17/18 16:00 97.9 68 18 140/85 (103) 96 Height (Feet): 5 Height (Inches): 3.00 Weight (Pounds): 124 General Appearance: no acute distress HEENT: mucous membranes moist Respiratory/Chest: lungs clear Cardiovascular: normal rate Abdomen: soft, non tender, other - Gt feeding Extremities: other - contracted Skin: ulcers Neurologic/Psychiatric: aphasia Laboratory Tests Test 11/18/18 05:45 Sodium Level 138 MMOL/L (136-145) Potassium Level 3.8 MMOL/L (3.5-5.1) Chloride Level 105 MMOL/L (98-107) Carbon Dioxide Level 24 MMOL/L (21-32) Anion Gap 9 mmol/L (5-15) Blood Urea Nitrogen 11 mg/dL (7-18) Creatinine 0.5 MG/DL (0.55-1.30) L Estimat Glomerular Filtration Rate > 60 mL/min (>60) Glucose Level 128 MG/DL (74-106) H Calcium Level 8.6 MG/DL (8.5-10.1) Total Bilirubin 0.3 MG/DL (0.2-1.0) Aspartate Amino Transf (AST/SGOT) 124 U/L (15-37) H Alanine Aminotransferase (ALT/SGPT) 143 U/L (12-78) H Alkaline Phosphatase 123 U/L (46-116) H Total Creatine Kinase 202 U/L (26-308) Total Protein 7.1 G/DL (6.4-8.2) Albumin 3.3 G/DL (3.4-5.0) L Globulin 3.8 g/dL Albumin/Globulin Ratio 0.9 (1.0-2.7) L Current Medications Medications (Trade) Dose Ordered Sig/Alex Route PRN Reason Start Time Stop Time Status Last Admin Dose Admin Acetaminophen (Tylenol) 650 mg Q4H PRN ORAL Mild Pain/Temp > 100.5 11/09/18 11:30 12/09/18 11:29 11/16/18 08:39 Cefazolin Sodium 1 gm/Dextrose 55 ml @ 110 mls/hr Q8HR IVPB 11/12/18 22:00 11/19/18 21:59 11/18/18 06:01 Fentanyl (Duragesic) 1 patch Q72H TDERMAL 11/18/18 18:00 11/25/18 17:59 Fentanyl (Duragesic) 1 patch Q72H TDERMAL 11/09/18 18:00 11/18/18 17:59 11/15/18 17:47 Heparin Sodium (Porcine) (Heparin 5000 units/ml) 5,000 units EVERY 12 HOURS SUBQ 11/10/18 09:00 12/10/18 08:59 11/18/18 08:58 Levetiracetam (Keppra) 1,000 mg BEDTIME ORAL 11/09/18 21:00 12/09/18 20:59 11/17/18 20:39 Magnesium Hydroxide (Mom) 30 ml DAILYPRN PRN ORAL Constipation 11/11/18 17:30 12/11/18 17:29 11/13/18 15:35 Miscellaneous Medication (fentaNYL Destruction) 1 ea Q72H MISC 11/12/18 17:59 12/12/18 17:58 11/15/18 17:50 Morphine Sulfate (Morphine 10mg/ 5ml Oral Soln) 5 mg Q4H PRN GT For Pain 11/09/18 15:00 12/08/18 23:29 11/13/18 15:36 Quetiapine Fumarate (SEROquel) 25 mg Q6H PRN GT For Anxiety 11/09/18 15:00 12/09/18 14:59 11/13/18 17:27 Quetiapine Fumarate (SEROquel) 200 mg BEDTIME GT 11/11/18 21:00 12/09/18 20:59 11/17/18 20:39 Vern López MD Nov 18, 2018 12:03
[2018-11-18] MEDS ORDERED: SEROQUEL200 MG GT (12:32)
[2018-11-18] MEDS ORDERED: DURAGESIC1 EA TDERMAL (12:32)
[2018-11-18] MEDS ORDERED: KEPPRA500 MG ORAL (12:32)
[2018-11-18] MEDS ORDERED: MOM30 ML ORAL (12:32)
--- NOTE | 2018-11-18 13:22 | NUR ---
RD ASSESSMENT & RECOMMENDATIONS SEE CARE ACTIVITY FOR COMPLETE ASSESSMENT DAILY ESTIMATED NEEDS: Needs based on wound/ 52kg 30-35 kcals/kg 5381-5919 total kcals 1.5-2.0 g protein/kg 78-104 g total protein 25-30 mL/kg 7616-1733 total fluid mLs NUTRITION DIAGNOSIS: * Increased kcal/prot/micronutrients needs R/T wound healing as evidenced by pt admitted w/ full thickness wound at R buttocks, oozing purulent exudate with trace amt of slough, tunneling clockwise. * Swallowing difficulty R/T dysphagia, h/o neurologic disorder as evidenced by PEG dep. CURRENT TF:Jevity 1.2 @ 45ml/hr x 24 hrs ENTERAL NUTRITION RECOMMENDATIONS: Jevity 1.2 @ 55ml/hr x 24 hrs + Prosource 1pkt daily to provide 1320ml, 1584kcal, 73g + 11g prot, 1065ml free water * Rec to INCREASE goal rate to 55ml/hr x 24 hrs * Add Prosource 1pkt daily to meet increased protein needs * HOB over 30 degrees/ water flush per MD ADDITIONAL RECOMMENDATIONS: * CALIBRATED BEDSCALE WT FOR ACCURATE CBW -> bedscale reads 1kg * Wound healing: add Vit C 500mg BID : add ZnSO4 220mg QD x 10 days : add Joe 1pkt BID * Monitor lytes daily, replete as needed
--- NOTE | 2018-11-18 13:42 | Surgery Progress Note ---
Surgery Progress Note Subjective Additional Comments leukocytosis nml now esr tending down exam stable Objective Last 24 Hour Vital Signs Date Time Temp Pulse Resp B/P (MAP) Pulse Ox O2 Delivery O2 Flow Rate FiO2 11/18/18 12:00 98.4 83 18 108/67 (81) 95 11/18/18 09:00 Nasal Cannula 2.0 11/18/18 08:00 98.4 92 18 108/68 (81) 95 11/18/18 04:00 97.5 99 18 124/78 (93) 94 11/18/18 00:00 98.6 114 19 119/76 (90) 91 11/17/18 21:00 Nasal Cannula 2.0 11/17/18 20:00 98.5 89 18 128/78 (95) 96 11/17/18 16:00 97.9 68 18 140/85 (103) 96 I&O Intake and Output 11/17/18 11/18/18 19:00 07:00 Intake Total 540 ml 345 ml Balance 540 ml 345 ml Intake Free Water 120 ml Tube Feeding 540 ml 225 ml # Voids 3 2 # Bowel Movements 4 1 Dressing: saturated Wound: other Drains: other Cardiovascular: RSR Respiratory: clear Abdomen: soft, present bowel sounds, non-distended Extremities: other Laboratory Tests Test 11/18/18 05:45 Sodium Level 138 MMOL/L (136-145) Potassium Level 3.8 MMOL/L (3.5-5.1) Chloride Level 105 MMOL/L (98-107) Carbon Dioxide Level 24 MMOL/L (21-32) Anion Gap 9 mmol/L (5-15) Blood Urea Nitrogen 11 mg/dL (7-18) Creatinine 0.5 MG/DL (0.55-1.30) L Estimat Glomerular Filtration Rate > 60 mL/min (>60) Glucose Level 128 MG/DL (74-106) H Calcium Level 8.6 MG/DL (8.5-10.1) Total Bilirubin 0.3 MG/DL (0.2-1.0) Aspartate Amino Transf (AST/SGOT) 124 U/L (15-37) H Alanine Aminotransferase (ALT/SGPT) 143 U/L (12-78) H Alkaline Phosphatase 123 U/L (46-116) H Total Creatine Kinase 202 U/L (26-308) Total Protein 7.1 G/DL (6.4-8.2) Albumin 3.3 G/DL (3.4-5.0) L Globulin 3.8 g/dL Albumin/Globulin Ratio 0.9 (1.0-2.7) L Plan Problems: (1) Decubitus skin ulcer (2) Cellulitis of buttock, right Assessment & Plan: Full thickness pressure injury R buttocks oozing purulent exudate with trace amt of slough.(L)0.7cm x (W)1.2cm x (D)2.1cm,Tunneling clockwise @11o'clock by 3.3cm.Periwound is indurated with hyperpigmentation. Historical scars noted to L buttocks. Given Fevers and still drainage of wound will obtain CT pelvis to ensure no deep pocket or tunneling abscess need to monitor for incontinence and change dressings often to ensure clean CT with * Skin thickening and soft tissue infiltration overlying the right aspect of the lower sacrum raising question for decubitus ulcer. Correlation with physical exam is recommended. No bony changes in the underlying sacrum to suggest osteomyelitis. No subcutaneous fluid collection to suggest abscess. overall slowly improving cont with wound care no planned surgery at this time will cont to monitor and help heal wound cont with dressings appreciate great nursing care Ruddy Elias Nov 18, 2018 13:42
--- NOTE | 2018-11-18 14:32 | NUR ---
DISCHARGE PLANNING DISCHARGE ORDER NOTED Patient has been accepted to; [facility] Kyler Toney [address] [place] [address] Bed: 19-C Skilled [phone] for Nurse to Nurse report [facility] ETA for transportation: 16:00
--- NOTE | 2018-11-18 15:05 | NUR ---
NURSE NOTES: Gave report to Chun Toney.
[2018-11-18 16:00] VITALS: BP 115/69
--- NOTE | 2018-11-18 16:19 | Diagnostic Imaging Report ---
Indication: Abnormal liver function tests Technique: [place]-scale and duplex images of the upper abdomen were obtained Comparison: No comparison sonograms. Reference made to CT scan dated 11/11/2018 Findings: Exam is limited due to patient contracture and body habitus. Gallbladder demonstrates gallstones. No gallbladder wall thickening or pericholecystic fluid. Sonographic Giron's sign could not be assessed due to lack of patient communication. Common bile duct measures 4 mm in diameter. No intrahepatic biliary ductal dilatation. Liver demonstrates normal echogenicity, no focal abnormality. It is borderline enlarged. Portal vein and hepatic veins are patent. Pancreas is unremarkable. Spleen is unremarkable. Left kidney measures 10.7 cm in length. Right kidney measures 8.8 cm length. Both kidneys demonstrate normal echogenicity. There is no hydronephrosis. Small parapelvic cysts are seen in both kidneys . Non-aneurysmal abdominal aorta . Impression: Cholelithiasis, not evident on previous CT scan Negative for dilated bile ducts Borderline hepatomegaly Bilateral small renal parapelvic cysts
[2018-11-18] MEDS ORDERED: Tubing IV Secondary IV ONE (17:41)
[2018-11-18] MEDS ORDERED: NS 275ml ONE (17:41)
--- NOTE | 2018-11-18 17:49 | NUR ---
NURSE NOTES: Patient is being discharged to [facility] via gurney with ambulance personnel, all discharge protocols followed and discharge instructions given to patient. Patient has no belongings. IV taken out and patient tolerated well. Pictures of wound taken and uploaded. Patient was in stable condition.
--- NOTE | 2018-11-18 18:05 | NUR ---
DISCHARGE PLANNING DISCHARGE ORDER NOTED Patient has been accepted to; [facility] Kyler Toney [address] [place] [address] Bed:19-C Skilled [phone] for Nurse to Nurse report [facility] ETA for transportation: 16:00
--- NOTE | 2018-11-18 21:18 | General Progress Note ---
Assessment/Plan Status: stable, progressing Assessment/Plan: Assessment - Quadroplegia, contratures - dysphagia, s/p GT change - abnormal LFT, ? etiology Recommendations - continue TF - GT care - check abd u/s --> cholelithiasis Subjective Allergies: Coded Allergies: No Known Allergies (Unverified , 11/08/18) Subjective above noted non communicative tolerating TF Objective Last 24 Hour Vital Signs Date Time Temp Pulse Resp B/P (MAP) Pulse Ox O2 Delivery O2 Flow Rate FiO2 11/18/18 16:00 98.9 90 18 115/69 (84) 97 11/18/18 12:00 98.4 83 18 108/67 (81) 95 11/18/18 09:00 Nasal Cannula 2.0 11/18/18 08:00 98.4 92 18 108/68 (81) 95 11/18/18 04:00 97.5 99 18 124/78 (93) 94 11/18/18 00:00 98.6 114 19 119/76 (90) 91 Intake and Output 11/17/18 11/18/18 19:00 07:00 Intake Total 540 ml 345 ml Balance 540 ml 345 ml Intake Free Water 120 ml Tube Feeding 540 ml 225 ml # Voids 3 2 # Bowel Movements 4 1 Laboratory Tests 11/18/18 05:45: Sodium Level 138, Potassium Level 3.8, Chloride Level 105, Carbon Dioxide Level 24, Anion Gap 9, Blood Urea Nitrogen 11, Creatinine 0.5L, Estimat Glomerular Filtration Rate > 60, Glucose Level 128H, Calcium Level 8.6, Total Bilirubin 0.3 , Aspartate Amino Transf (AST/SGOT) 124H, Alanine Aminotransferase (ALT/SGPT) 143H, Alkaline Phosphatase 123H, Total Creatine Kinase 202, Total Protein 7.1, Albumin 3.3L, Globulin 3.8, Albumin/Globulin Ratio 0.9L Height (Feet): 5 Height (Inches): 3.00 Weight (Pounds): 124 Objective Debilitated Noncommunicative woman NCAT supple CTA RR Abd Soft (+) GT (++) contractures OBS Alex Joseph MD Nov 18, 2018 21:18
--- NOTE | 2018-11-19 02:00 | Progress Note ---
DATE: 11/18/2018 SUBJECTIVE: The patient is the same. No behavior issues today yells, cognitive impairment. No insight or judgment. MENTAL STATUS EXAMINATION: The patient is alert, confused, disoriented. Mood is neutral. Affect is flat. Thought process is disorganized. Thought content, no suicidal or homicidal ideation. Memory, concentration, and attention are impaired. Insight and judgment non-existent. ASSESSMENT: Cognitive impairment and agitation. PLAN: We will continue current medications. Provide the patient with reality orientation and supportive therapy. Raghu Charles M.D. DR: GWEN JOB#: [id number] CC: LUANN
--- NOTE | 2018-11-19 02:45 | Discharge Summary ---
DATE OF ADMISSION: 11/08/2018 DATE OF DISCHARGE: 11/18/2018 ADMITTING DIAGNOSES: 1. Functional quadriplegia. 2. Multiple sclerosis. 3. Sepsis. 4. Seizure disorder. 5. Intractable pain. 6. Toxic metabolic encephalopathy. DISCHARGE DIAGNOSES: 1. Functional quadriplegia. 2. Multiple sclerosis. 3. Sepsis. 4. Seizure disorder. 5. Intractable pain. 6. Toxic metabolic encephalopathy. HOSPITAL COURSE: The patient is an unfortunate 43-year-old female with a history of severe and debilitating multiple sclerosis. She was brought in by family members, who no longer is able to care for. While , she was noted to have fevers and positive blood cultures. She was treated with intravenous antibiotics. ID consultation was obtained. The patient's is continued on G-tube feeds. She also had intractable hip pain. She was placed on a fentanyl patch for pain control. The patient's hospital course was also complicated by poorly malfunctioning G-tube. This was changed by the GI compliance consultant. On discharge, the patient was stable. Family elected to take the patient to a senior care facility for continued care. DISCHARGE MEDICATIONS: Please see discharge medication list for discharge medications. DIET: G-tube feeding. ACTIVITIES: Ad-alexander. FOLLOWUP: The patient will be followed up in one to two days at the senior care facility. Jasper Starr M.D. DR: CAMPOS JOB#: [id number] CC:
== END 2018-11-18 17:42 | DRG 871 ==
LOC: EMR 17:56 → 4E 18:33 → EDBEDREQTM 19:55 → EDBEDREQSVC 19:55 → EDBEDREQ 19:56 → 4E 11-09 10:04
PROC: 0D20XUZ Change Feeding Device in Upper Intestinal Tract, External Approach (ICD-10-PCS; principal; 2018-11-16)
DX: A41.9 Sepsis, unspecified organism (principal); G82.50 Quadriplegia, unspecified; J69.0 Pneumonitis due to inhalation of food and vomit; G92 Toxic encephalopathy; L03.317 Cellulitis of buttock; F03.91 Unspecified dementia, unspecified severity, with behavioral disturbance; K94.23 Gastrostomy malfunction; R40.3 Persistent vegetative state; G35 Multiple sclerosis; G40.909 Epilepsy, unspecified, not intractable, without status epilepticus; L89.310 Pressure ulcer of right buttock, unstageable; L89.612 Pressure ulcer of right heel, stage 2; Z74.01 Bed confinement status; E87.6 Hypokalemia; K56.41 Fecal impaction; G31.84 Mild cognitive impairment of uncertain or unknown etiology; D64.9 Anemia, unspecified; R13.10 Dysphagia, unspecified; F41.9 Anxiety disorder, unspecified; L89.150 Pressure ulcer of sacral region, unstageable
CPT/HCPCS: 36415; 70450; 71045; 74018; 74177; 76700; 80048; 80053; 80076; 80202; 80299; 81003; 82140; 82550; 82553; 82607; 82746; 83605; 83735; 83880; 84443; 84484; 85025; 85610; 85651; 85730; 86140; 86850; 86900; 86901; 87040; 87070; 87086; 87181; 87205; 93005; 94640; 94664; 96361; 96374; 96375; 99285; J7620; J8499

== ENCOUNTER 2019-01-16 19:12 | Inpatient (IN) | payer MEDICARE, OTHER ==
[~2019-01-16] VITALS: Ht 167.6 cm; Wt 63.0 kg
[~2019-01-16 19:12] MED LIST: ATIVAN1 MG ORAL; CELEXA40 MG GT; DURAGESIC1 EA TDERMAL; KEPPRA500 MG ORAL; METHADONE HCL10 MG ORAL; MOM30 ML ORAL; MORPHINE IR15 MG ORAL; SENNA LAXATIVE8.6 MG PO; SEROQUEL200 MG GT; SEROQUEL300 MG ORAL
--- NOTE | 2019-01-16 19:30 | NUR ---
ED Nurse Note: Pt brought in by [id number] from [facility] due to projectile vomiting, coffee ground emesis. Pt is non verbal but is cooperative. Alert nad oriented x2. No SOB. Breathing even and unlabored. Pt has GT. Has history of dysphagia, left and right elbow contractures, muscle weakness. Temp 99.9 rectally. VSS.
--- NOTE | 2019-01-16 19:40 | NUR ---
ED Nurse Note: Xray done at bedside.
[2019-01-16] MEDS ORDERED: SENNA8.6 M2 GT (19:44)
[2019-01-16] MEDS ORDERED: VITAMIN C500 M7 PO (19:44)
[2019-01-16] MEDS ORDERED: MULTIVITAMINS1 EAC2 ORAL (19:44)
[2019-01-16] MEDS ORDERED: NORCO 10-325 T1 EACH ORAL (19:44)
[2019-01-16] MEDS ORDERED: DURAGESIC1 E1 TOPIC (19:44)
[2019-01-16] MEDS ORDERED: ATIVAN0.5 MG GT (19:44)
[2019-01-16] MEDS ORDERED: CYCLOBENZAPRINE10 MG GT (19:44)
[2019-01-16] MEDS ORDERED: KEPPRA1000 MG GT (19:44)
[2019-01-16] MEDS ORDERED: PROSTAT GT (19:44)
[2019-01-16] MEDS ORDERED: MILK OF MA400 MG/51 ORAL (19:44)
[2019-01-16] MEDS ORDERED: SEROQUEL300 MG GT (19:44)
[2019-01-16 19:53] VITALS: BP 109/63
[2019-01-16 20:30] LABS: HEMATOCRIT 47.5 % (37.0-47.0); HEMOGLOBIN 16.1 G/DL (12.0-16.0); MEAN CORPUSCULAR VOLUME 94 FL (80-99); PLATELET COUNT 322 K/UL (150-450); RED BLOOD COUNT 5.02 M/UL (4.20-5.40); RED CELL DISTRIBUTION WIDTH 11.6 % (11.6-14.8); WHITE BLOOD COUNT 14.4 K/UL (4.8-10.8)
[2019-01-16 20:31] LABS: BASOPHILS % (AUTO) 0.6 % (0.0-2.0); LYMPHOCYTES % (AUTO) 5.6 % (20.0-45.0); MONOCYTES % (AUTO) 5.7 % (1.0-10.0)
[2019-01-16 20:33] LABS: ANION GAP 10 mmol/L (5-15); BLOOD UREA NITROGEN 14 mg/dL (7-18); CALCIUM 10.2 MG/DL (8.5-10.1); CARBON DIOXIDE 28 MMOL/L (21-32); CHLORIDE 106 MMOL/L (98-107); CREATININE 0.6 MG/DL (0.55-1.30); POTASSIUM 3.7 MMOL/L (3.5-5.1); SODIUM 144 MMOL/L (136-145)
--- NOTE | 2019-01-16 20:42 | Emergency Room Report ---
History of Present Illness General Chief Complaint: Gastrointestinal Bleed Source: Medical Record, EMS Present Illness HPI This patient is brought in from a intermediate facility. She is non-verbal at baseline. She has a history of a demyelinating disease, epilepsy multiple contractures and generalized muscle weakness. She is nonambulatory and nonverbal at baseline. She is brought in by EMS from the intermediate facility for vomiting that had a coffee-ground appearance. Patient herself is unable to give any type of history. There is no other history of present illness available. Allergies: Coded Allergies: No Known Allergies (Unverified , 11/08/18) Patient History Past Medical History: see triage record, old chart reviewed, seizures, other - Demyelinating disease of RN PARALEGAL, Epilepsy, Dysphagia Past Surgical History: other - G-tube Social History: Denies: smoking, alcohol use, drug use Reviewed Nursing Documentation: PMH: Agreed; PSxH: Agreed Nursing Documentation-PMH Past Medical History: No History, Except For Hx Cardiac Problems: No Hx Cancer: No Hx Gastrointestinal Problems: Yes - GTUBE Hx Neurological Problems: Yes - demyelinating disease of RN PARALEGAL,left/right elbow contractures, muscle weakness Hx Seizures: Yes - epilepsy Review of Systems All Other Systems: limited Physical Exam Vital Signs Date Time Temp Pulse Resp B/P (MAP) Pulse Ox O2 Delivery O2 Flow Rate FiO2 01/16/19 19:07 99.3 100 16 116/70 (85) 92 Room Air Sp02 EP Interpretation: reviewed, normal General Appearance: no apparent distress, alert, GCS 15, non-toxic Head: normocephalic, atraumatic Eyes: bilateral eye normal inspection ENT: no angioedema Neck: normal inspection, supple/symm/no masses Respiratory: chest non-tender, lungs clear, normal breath sounds, no respiratory distress, no retraction, no accessory muscle use, speaking full sentences Cardiovascular #1: no edema, tachycardia Gastrointestinal: soft, non-distended, other - G-tube in place Rectal: deferred Musculoskeletal: other - Contracted Neurologic: alert, other - At baseline, non-verbal, contracted. Psychiatric: mood/affect normal Skin: other - See RN skin exam Medical Decision Making Diagnostic Impression: Primary Impression: Intractable vomiting Additional Impressions: UTI (urinary tract infection) Demyelinating disease of central nervous system Fecal impaction in rectum ER Course This patient has had multiple episodes of vomiting and is G-tube dependent. She is pending a CT of the abdomen and pelvis at the time of this dictation. I have a low suspicion for upper GI bleed. Hemoglobin and hematocrit are within normal limits. Given the patient is G-tube dependent and able to tolerate G- tube feeds at this time, the patient will be admitted for further evaluation and treatment and assessment by gastroenterology. CT of the abdomen and pelvis will be followed up by the inpatient physician. The patient is admitted for further evaluation and treatment. She is also found to have a urinary tract infection and was given IV Rocephin. Laboratory Tests Test 01/16/19 19:30 01/16/19 20:35 01/16/19 20:46 White Blood Count 14.4 K/UL (4.8-10.8) H Red Blood Count 5.02 M/UL (4.20-5.40) Hemoglobin 16.1 G/DL (12.0-16.0) H Hematocrit 47.5 % (37.0-47.0) H Mean Corpuscular Volume 94 FL (80-99) Mean Corpuscular Hemoglobin 32.1 PG (27.0-31.0) H Mean Corpuscular Hemoglobin Concent 34.0 G/DL (32.0-36.0) Red Cell Distribution Width 11.6 % (11.6-14.8) Platelet Count 322 K/UL (150-450) Mean Platelet Volume 7.1 FL (6.5-10.1) Neutrophils (%) (Auto) 88.0 % (45.0-75.0) H Lymphocytes (%) (Auto) 5.6 % (20.0-45.0) L Monocytes (%) (Auto) 5.7 % (1.0-10.0) Eosinophils (%) (Auto) 0.0 % (0.0-3.0) Basophils (%) (Auto) 0.6 % (0.0-2.0) Prothrombin Time 10.7 SEC (9.30-11.50) Prothrombin Time INR 1.0 (0.9-1.1) PTT 27 SEC (23-33) Sodium Level 144 MMOL/L (136-145) Potassium Level 3.7 MMOL/L (3.5-5.1) Chloride Level 106 MMOL/L (98-107) Carbon Dioxide Level 28 MMOL/L (21-32) Anion Gap 10 mmol/L (5-15) Blood Urea Nitrogen 14 mg/dL (7-18) Creatinine 0.6 MG/DL (0.55-1.30) Estimate Glomerular Filtration Rate > 60 mL/min (>60) Glucose Level 115 MG/DL (74-106) H Calcium Level 10.2 MG/DL (8.5-10.1) H Total Bilirubin 0.6 MG/DL (0.2-1.0) Aspartate Amino Transferase (AST) 39 U/L (15-37) H Alanine Aminotransferase (ALT) 39 U/L (12-78) Alkaline Phosphatase 108 U/L (46-116) Total Creatine Kinase 118 U/L (26-308) Creatine Kinase MB 1.0 NG/ML (0.0-3.6) Creatine Kinase MB Relative Index 0.8 Total Protein 8.6 G/DL (6.4-8.2) H Albumin 3.9 G/DL (3.4-5.0) Globulin 4.7 g/dL Albumin/Globulin Ratio 0.8 (1.0-2.7) L Lactic Acid Level 1.00 mmol/L (0.4-2.0) Urine Color Yellow Urine Appearance Cloudy Urine pH 9 (4.5-8.0) Urine Specific [place] 1.010 (1.005-1.035) Urine Protein 3+ (NEGATIVE) H Urine Glucose (UA) Negative (NEGATIVE) Urine Ketones 3+ (NEGATIVE) H Urine Blood 5+ (NEGATIVE) H Urine Nitrite Negative (NEGATIVE) Urine Bilirubin Negative (NEGATIVE) Urine Urobilinogen 1 MG/DL (0.0-1.0) H Urine Leukocyte Esterase 1+ (NEGATIVE) H Urine RBC 20-30 /HPF (0 - 2) H Urine WBC 0-2 /HPF (0 - 2) Urine Squamous Epithelial Cells Many /LPF (NONE/OCC) H Urine Bacteria Moderate /HPF (NONE) H EKG Diagnostic Results Rate: normal Rhythm: NSR ST Segments: no acute changes Rhythm Strip Diag. Results EP Interpretation: yes Rate: 90's Rhythm: NSR, no PVC's, no ectopy CT/MRI/US Diagnostic Results CT/MRI/US Diagnostic Results : Imaging Test Ordered: CT abd/pelvis Impression Pending. To be followed up by inpatient physician. See EMR for report. Large stool impaction. Last Vital Signs Date Time Temp Pulse Resp B/P (MAP) Pulse Ox O2 Delivery O2 Flow Rate FiO2 01/16/19 19:53 100 16 Room Air 01/16/19 19:53 99.3 109/63 98 Disposition: ADMITTED INPATIENT Condition: Serious Referrals: Jasper Starr MD (PCP) Judy Whitehead DO Jan 16, 2019 20:42
[2019-01-16] MEDS ORDERED: Omnipaque-300 100ml vial INJ PRN (20:45)
[2019-01-16 20:46] LABS: ALANINE AMINOTRANSFERASE 39 U/L (12-78); ALBUMIN 3.9 G/DL (3.4-5.0); ALBUMIN/GLOBULIN RATIO 0.8 (1.0-2.7); ALKALINE PHOSPHATASE 108 U/L (46-116); ASPARTATE AMINO TRANSFERASE 39 U/L (15-37); BILIRUBIN,TOTAL 0.6 MG/DL (0.2-1.0); CREATINE KINASE 118 U/L (26-308)
--- NOTE | 2019-01-16 20:50 | NUR ---
ED Nurse Note: Pt taken to CT.
[2019-01-16 20:54] LABS: APPEARANCE,URINE CLOUDY; BILIRUBIN, URINE NEGATIVE (NEGATIVE); GLUCOSE, URINE (UA) NEGATIVE (NEGATIVE); KETONES,URINE 3+ (NEGATIVE); LEUKOCYTE ESTERASE ,URINE 1+ (NEGATIVE); NITRITE,URINE NEGATIVE (NEGATIVE); PH,URINE 9 (4.5-8.0); PROTEIN,URINE 3+ (NEGATIVE); UROBILINOGEN,URINE 1 MG/DL (0.0-1.0)
[2019-01-16 20:55] LABS: COLOR,URINE YELLOW
[2019-01-16] MEDS ORDERED: cefTRIAXone 1 GM in NS 55 ML IVPB ONE (21:15)
[2019-01-16 21:16] VITALS: BP 112/68
--- NOTE | 2019-01-16 21:21 | NUR ---
ED Nurse Note: Came back from CT.
--- NOTE | 2019-01-16 21:35 | Diagnostic Imaging Report ---
Clinical Indication: Vomiting Technique: No enteric contrast utilized, per emergency room physician request IV administration nonionic contrast. Venous phase spiral acquisition obtained through the abdomen and pelvis. Multiplanar reconstructions were generated. Total dose length product 1050 mGycm. CTDIvol(s) 17 mGy. Dose reduction achieved using automated exposure control Comparison: 11/11/2018 Findings: There is infiltration of the subcutaneous fat inferior to the coccyx just to the right of midline. This does not evident on the previous exam. There is evidence of bone loss of the coccyx, also evident on previous exam and most likely chronic. No definite acute osseous erosion is evident. There is distention of the rectum by dense feces. This is slightly increased from the prior exam. Current rectal diameter is 9.5 cm. There is thickening of the rectal wall. Mass effect from the enlarged rectum and distal sigmoid results in anterior right lateral displacement of the uterus and adnexal structures. The appendix is normal. No evidence of diverticulosis or diverticulitis. No small bowel distention. No free or loculated intraperitoneal gas or fluid is evident. There is a gastrostomy in good position within the gastric antrum. This is a new gastrostomy since the prior study. The stomach is filled with fluid, mildly distended with gas and fluid. The duodenum is also distended and gas-filled, abruptly tapers as it crosses the midline. This finding is not evident previously. The liver, gallbladder, bile ducts, pancreas, spleen, adrenals, kidneys are all unremarkable. No pelvic mass or adenopathy. No retroperitoneal or mesenteric mass or adenopathy. Again demonstrated is chronic appearing posterior dislocation of the left hip, with resultant remodeling of the femoral head and posterior column of the acetabulum. The included lung bases are largely clear with the exception of some posterior dependent atelectatic changes. Impression: Distended stomach and duodenum. Suspect functional in nature, but given apparent tapering at the level of the ligament of Treitz, the possibility of compression by the superior mesenteric artery (so-called nutcracker phenomenon) should be considered Markedly distended rectum with stool. Rectal wall thickening may indicate stercoral colitis High attenuation within the right lower buttock region subcutaneous fat. This may indicate decubitus changes. Correlate with clinical findings Bone loss of the coccyx. 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 The CT scanner at [facility] is accredited by the [employer] and the scans are performed using protocols designed to limit radiation exposure to as low as reasonably achievable to attain images of sufficient resolution adequate for diagnostic evaluation.
--- NOTE | 2019-01-16 21:52 | NUR ---
ED Nurse Note: Report given to Eva BARRERA from [place].
[2019-01-16] MEDS ORDERED: Fleet's Enema 133ml RECTAL ONE (22:00)
[2019-01-16] MEDS: Docusate 250mg cap ORAL SCH (22:00)
[2019-01-16] MEDS ORDERED: Sennosides 8.6mg tab GT PRN (22:00)
[2019-01-16] MEDS ORDERED: LORazepam 0.5mg tab GT PRN (22:00)
[2019-01-16] MEDS ORDERED: LORazepam Inj 2mg/ml 1ml IV ONE (22:00)
[2019-01-16] MEDS ORDERED: Morphine Sulfate 2mg/ml Inj(IV/IM USE ONLY) IVP ONE (22:00)
[2019-01-16 22:07] VITALS: BP 111/71
--- NOTE | 2019-01-16 22:07 | NUR ---
TRANSFER TO FLOOR: Patient transferred to Med surg unit. Report given to Eva BARRERA. Pt alert and oriented x2, non verbal but is cooperative. No SOB. Breathing even and unlabored. Temp 99.8 rectally. IV line on right forearm 20g patent and intact. GT intact. Pt doesnt have any belongings. Med recon done. Swabs sent to lab.
[2019-01-16 22:40] VITALS: BP 129/83
[2019-01-16] MEDS: Lactulose 20gm/30ml UDC GT SCH (23:01)
--- NOTE | 2019-01-16 23:33 | NUR ---
NURSE NOTES: Received uzieln from ER via gurney. Patient non-verbal but able to follow commands. Sacral picture taken, fleet's enema administered per MD order. Optifoam applied to all pressure points for prophylaxis as patient is contracted. G tube noted, intact and patent. Dr Starr input orders.
[2019-01-16] MEDS: D5NS 1,000 ML IV SCH (23:55)
[2019-01-17] VITALS: BP 118/82
[2019-01-17] MEDS: HYDROcodone/Acetamin 10/325 tab ORAL PRN (01:22)
[2019-01-17 04:00] VITALS: BP 116/76
--- NOTE | 2019-01-17 04:00 | NUR ---
NURSE NOTES: Patient febrile and heart rate elevated inm Addendum: 01/17/19 at 0633 by Mayte Watt RN Patient febrile and heart rate elevated in the 130s. Dr Starr called and new orders entered. Charge nurse aware.
[2019-01-17] MEDS ORDERED: NS 250 ML IVPB ONE (05:45)
[2019-01-17] MEDS: Piperacillin/Tazobactam 3.375 GM in NS 110 ML IVPB SCH ×3 (06:35→22:10)
[2019-01-17 07:33] LABS: HEMATOCRIT 43.8 % (37.0-47.0); HEMOGLOBIN 14.9 G/DL (12.0-16.0); MEAN CORPUSCULAR VOLUME 96 FL (80-99); PLATELET COUNT 345 K/UL (150-450); RED BLOOD COUNT 4.57 M/UL (4.20-5.40); RED CELL DISTRIBUTION WIDTH 12.6 % (11.6-14.8); WHITE BLOOD COUNT 12.7 K/UL (4.8-10.8)
--- NOTE | 2019-01-17 07:45 | NUR ---
HAND-OFF: Report given to Oralia.
[2019-01-17 08:00] VITALS: BP 127/68
--- NOTE | 2019-01-17 08:18 | NUR ---
NURSE NOTES: Patient is awake. HOB is elevated. Side rails are upx2, bed is locked and in lowest position. Will continue to monitor.
[2019-01-17] MEDS: Lactulose 20gm/30ml UDC GT SCH ×3 (09:08→17:27)
[2019-01-17] MEDS: Docusate 250mg cap ORAL SCH ×2 (09:08→17:27)
[2019-01-17] MEDS: Milk of Magnesia 30ml Ud GT SCH (09:08)
[2019-01-17] MEDS: Cyclobenzaprine 10mg Tab GT SCH ×3 (09:09→17:27)
--- NOTE | 2019-01-17 10:45 | Diagnostic Imaging Report ---
Indication: Cough Technique: One view of the chest Comparison: 11/14/2018 Findings: Lungs and pleural spaces are clear. Heart size is normal. There is no significant interim change. Impression: No acute process
--- NOTE | 2019-01-17 10:55 | NUR ---
NURSE NOTES: No code status and DVT noted. Dr. Starr called. New order received. POL in chart.
[2019-01-17 12:00] VITALS: BP 120/80
[2019-01-17] MEDS: D5NS 1,000 ML IV SCH (12:43)
[2019-01-17 16:00] VITALS: BP 117/74
--- NOTE | 2019-01-17 16:30 | Consultation ---
DATE OF CONSULTATION: 01/17/2019 INFECTIOUS DISEASES CONSULTATION CONSULTING PHYSICIAN: Mateusz Bone M.D. REFERRING PHYSICIAN: Jasper Starr M.D. REASON FOR CONSULTATION: Fever. HISTORY OF PRESENTING ILLNESS: This is a 43-year-old lady with history of demyelinating disease, epilepsy, contractures, muscle weakness, who came in with coffee-ground vomiting. She was found to have fevers and an Infectious Diseases consultation has been obtained for antibiotics. PAST MEDICAL HISTORY: 1. History of demyelinating disease. 2. Epilepsy. 3. Contractures. 4. Muscle weakness. 5. History of G-tube placement. SOCIAL HISTORY: Unknown. FAMILY HISTORY: Unknown. REVIEW OF SYSTEMS: Unable to obtain currently. MEDICATIONS: As an inpatient, she is on fentanyl, Keppra, subcutaneous heparin, cyclobenzaprine, milk of magnesia, multivitamin, Zosyn, Tylenol, [place], lorazepam, senna, lactulose, docusate, . ALLERGIES: No known drug allergies. PHYSICAL EXAMINATION: VITAL SIGNS: Temperature of 99.5, T-max of 101.7, pulse of 111, respiratory rate 24, blood pressure 127/68, O2 saturation of 94%. HEENT: Pupils equally reactive to light and accommodation. Mouth appears clean without thrush. NECK: Supple. No adenopathy. No JVD. CARDIOVASCULAR: Regular rate and rhythm. No murmurs. LUNGS: Clear to auscultation bilaterally. No crackles. No wheezes. ABDOMEN: Soft and nontender. G-tube site appears clean. EXTREMITIES: No cyanosis, no clubbing. Edema noted bilaterally. LABORATORY AND DIAGNOSTIC DATA: White count of 14.4 on 01/16/2019, white count of 12.7 on 01/17/2019, hemoglobin 14.9, hematocrit 43.8, MCV 96, platelet count of 345, neutrophils of 91%. Sodium 144, potassium 3.7, chloride 106, bicarb 28, BUN 14, creatinine 0.6, glucose 115, calcium 10.2. Total bilirubin 0.6. AST 39, ALT 39, alkaline phosphatase 108. CK of 118. CK-MB of 1. Total protein 8.6, albumin 3.9. UA showing 0 to 2 white cells. Urine cultures are pending. Chest x-ray showing no acute process. CT abdomen and pelvis showing distended stomach and duodenum. Markedly distended rectum with stool, rectal wall thickening may indicate colitis, chronic bone loss in the coccyx for severe dislocation in the left hip. ASSESSMENT: This is a 43-year-old lady with history of demyelinating disease, who comes in with coffee-ground emesis and was found to have. 1. Leukocytosis could be secondary to aspiration pneumonia. 2. She possibly has a colitis. 3. Status post G-tube placement. 4. Leukocytosis is improving. 5. Epilepsy. PLAN: 1. Continue Zosyn for now. 2. We will follow up cultures. I would like to thank, Dr. Starr, for this consultation. Mateusz Bone M.D. DR: RIANNA JOB#: [id number] CC: Jasper Starr M.D.
--- NOTE | 2019-01-17 16:45 | History and Physical Report ---
DATE OF ADMISSION: 01/16/2019 CHIEF COMPLAINT: Fevers and vomiting. HISTORY OF PRESENT ILLNESS: The patient is an unfortunate 43-year-old female. She has a history of multiple sclerosis and functional quadriplegia. She [facility] from [facility] secondary to projectile vomiting and fevers. She had a white count of 14,000 in the emergency room and a CAT scan showed a fecal impaction. In the emergency room, the patient has been pancultured, broad spectrum antibiotics has been instituted and she is now admitted for further evaluation and care. The patient is nonverbal, unable to provide any additional history. PAST MEDICAL HISTORY: As above. PAST SURGICAL HISTORY: Includes a G-tube. CURRENT MEDICATIONS: Reconciled and reviewed. ALLERGIES: None. FAMILY HISTORY: None. SOCIAL HISTORY: There is no known history of tobacco, ethanol, or drugs. REVIEW OF SYSTEMS: From the patient is unobtainable as she is nonverbal. PHYSICAL EXAMINATION: VITAL SIGNS: Temperature 100.2, pulse 132, respirations 20, and blood pressure 160/76. GENERAL: The patient is a chronically ill-appearing female, in no apparent distress. She is awake, but nonverbal. NECK: Supple. There is no jugular venous distention. HEART: Tachycardic. LUNGS: Clear anteriorly. ABDOMEN: Soft, nontender, and nondistended. EXTREMITIES: Without clubbing, cyanosis, or edema. LABORATORY DATA: Labs showed a white count of 14,000, hemoglobin 16. Sodium 144, potassium 2.7. LFTs were unremarkable. UA showed 20 to [address] scan of the abdomen showed a distended rectum with stool, rectal wall thickening, and possible colitis. ASSESSMENT: This is an unfortunate female with a history of quadriplegia secondary to multiple sclerosis, admitted with complaints of fevers and possible fecal impaction. PLAN: 1. IV antibiotics. 2. GI, ID, and Cardiology consultations. 3. We will hydrate the patient. 4. Keep the patient NPO. 5. Bowel regimen. 6. Followup pending cultures. Jasper Starr M.D. DR: BAM JOB#: [id number] CC:
--- NOTE | 2019-01-17 19:35 | NUR ---
HAND-OFF: Report given to HOLLY Hu.
--- NOTE | 2019-01-17 19:53 | NUR ---
NURSE NOTES: Received patient awake in bed, non-verbal but able to track with eyes and understand commands. IV access patent running IVF maintenance. Bed low and locked, suction at bedside, yellow gown on.
[2019-01-17 20:00] VITALS: BP 115/72
--- NOTE | 2019-01-17 20:44 | General Progress Note ---
Assessment/Plan Assessment/Plan: Assessment - Rectal stool impaction, currently resolved after BM earlier today - Fever, ? source - distended stomach / duodenum - suspect functional - MS/contracted/bed bound Recommendations - NPO - IVF - Abx - limited UGI via GT in am Thank you Alex Joseph MD Subjective Allergies: Coded Allergies: No Known Allergies (Unverified , 11/08/18) Objective Last 24 Hour Vital Signs Date Time Temp Pulse Resp B/P (MAP) Pulse Ox O2 Delivery O2 Flow Rate FiO2 01/17/19 17:57 100.2 01/17/19 16:00 100.3 104 17 117/74 (88) 94 01/17/19 12:00 97.1 108 22 120/80 (93) 94 01/17/19 08:30 Room Air 01/17/19 08:00 101.7 111 24 127/68 (87) 94 01/17/19 04:00 100.2 132 20 116/76 (89) 96 01/17/19 02:15 Room Air 01/17/19 01:52 99.7 01/17/19 00:00 99.7 137 20 118/82 (94) 96 01/16/19 22:40 98.1 115 20 129/83 (98) 95 01/16/19 22:27 99.6 01/16/19 22:07 99.6 118 21 111/71 99 Room Air 01/16/19 22:07 99.6 118 21 111/71 99 Room Air 01/16/19 21:16 99.8 115 20 112/68 96 Room Air Intake and Output 01/16/19 01/17/19 19:00 07:00 Intake Total 580 ml Balance 580 ml Intake IV Total 580 ml # Voids 2 Laboratory Tests 01/16/19 20:46: Urine Color Yellow, Urine Appearance Cloudy, Urine pH 9, Urine Specific [place] 1.010, Urine Protein 3+H, Urine Glucose (UA) Negative, Urine Ketones 3+H, Urine Blood 5+H, Urine Nitrite Negative, Urine Bilirubin Negative, Urine Urobilinogen 1H, Urine Leukocyte Esterase 1+H, Urine RBC 20-30H, Urine WBC 0-2, Urine Squamous Epithelial Cells ManyH, Urine Bacteria ModerateH 01/17/19 05:34: White Blood Count 12.7H, Red Blood Count 4.57, Hemoglobin 14.9, Hematocrit 43.8 , Mean Corpuscular Volume 96, Mean Corpuscular Hemoglobin 32.5H, Mean Corpuscular Hemoglobin Concent 33.9, Red Cell Distribution Width 12.6, Platelet Count 345, Mean Platelet Volume 6.5, Neutrophils (%) (Auto) , Lymphocytes (%) ( Auto) , Monocytes (%) (Auto) , Eosinophils (%) (Auto) , Basophils (%) (Auto) , Differential Total Cells Counted 100, Neutrophils % (Manual) 91H, Lymphocytes % (Manual) 7L, Monocytes % (Manual) 2, Eosinophils % (Manual) 0, Basophils % ( Manual) 0, Band Neutrophils 0, Platelet Estimate Adequate, Platelet Morphology Normal, Red Blood Cell Morphology Normal, Thyroid Stimulating Hormone (TSH) 1.405 01/17/19 08:36: Lactic Acid Level 0.50 Height (Feet): 5 Height (Inches): 6.00 Weight (Pounds): 140 Alex Joseph MD Jan 17, 2019 20:44
[2019-01-17] MEDS ORDERED: Barium EZ Gas II granules MC PRN (20:45)
[2019-01-17] MEDS ORDERED: Barium EZ HD MC PRN (20:45)
[2019-01-17] MEDS ORDERED: Varibar Thin Liquid powder 148gm MC PRN (20:45)
[2019-01-17] MEDS: Heparin 5000 units/ml inj SUBQ SCH (20:51)
[2019-01-17] MEDS: Pantoprazole Inj IVP SCH (22:09)
[2019-01-18] VITALS: BP 128/83
[2019-01-18] MEDS: D5NS 1,000 ML IV SCH (00:40)
--- NOTE | 2019-01-18 01:15 | Consultation ---
DATE OF CONSULTATION: 01/17/2019 GASTROENTEROLOGY CONSULTATION CONSULTING PHYSICIAN: Alex Joseph M.D. CHIEF COMPLAINT: I was asked to see this patient by Dr. Jasper Starr for evaluation of vomiting and stool impaction. The patient herself is unable to provide any history. All the information is only available from the chart and discussion with the nursing staff. The patient was brought in with fever and she has been placed on antibiotics and Infectious Disease consultation has been obtained. There is no clear report of gastrointestinal bleeding, although the nurse stated that initial drainage from the gastrostomy tube appeared coffee-ground like, but now it is clear. The patient's stools are brown. CT scan showed a large stool impaction, which prompted this consultation. There was also a very dilated stomach and proximal small bowel of unclear nature. The patient has multiple sclerosis with contracture deformities and gastrostomy tube for long-term enteral access. She is nonverbal. PAST MEDICAL HISTORY: History of multiple sclerosis, contraction deformities. The patient has severe bed-bound state, nonverbal state, dysphagia with gastrostomy tube dependence. FAMILY HISTORY: Unavailable. SOCIAL HISTORY: The patient is from a group home. REVIEW OF SYSTEMS: Unobtainable. MEDICATIONS: See the chart list for details. PHYSICAL EXAMINATION: GENERAL: Debilitated, woman seen in her room, in no distress. HEENT: Normocephalic, atraumatic. Sclerae anicteric. Oropharynx clear. NECK: Supple. CHEST: Clear to auscultation. CARDIOVASCULAR: Revealed a regular rate. ABDOMEN: Soft and appears to be nondistended. She has severe contracture deformities. RECTAL: Exam revealed empty rectal vault. LABORATORY DATA: Noted. ASSESSMENT: This patient presents with rectal stool impaction, which now on digital examination has resolved. The nurse states that the patient had some large bowel movement earlier today and it was all light brown. The patient also has had no further vomiting. Her abdomen is soft and I suspect that her gastrointestinal motility may have been due to acute infectious process. I will check limited upper GI series to evaluate for any evidence of bowel obstruction. If the path is clear, then the feeding can be started slowly. In the meantime, the patient can be given bowel regimen and her bowel movements can be monitored. Keep the patient on both fentanyl patch and also some additional narcotics. These should minimize gastrointestinal motility. RECOMMENDATIONS: 1. Check upper GI series in the morning. 2. IV hydration. 3. Hold feeding for now. 4. Minimize narcotics. 5. Proton pump inhibitor. Thank you for asking me to participate in the care of this patient. Alex Joseph M.D. DR: ASHLEY JOB#: [id number] CC: LUANN
[2019-01-18 04:00] VITALS: BP 133/84
--- NOTE | 2019-01-18 04:45 | Consultation ---
DATE OF CONSULTATION: 01/18/2019 CONSULTING PHYSICIAN: Mario Alberto Merlos M.D. REQUESTING PHYSICIAN: Jasper Starr M.D. REASON FOR CONSULTATION: Tachycardia. HISTORY OF PRESENT ILLNESS: This is a 43-year-old female. She has an advanced neuromuscular condition, possibly a variant of multiple sclerosis with functional quadriplegia, contractures, dysphagia, and a G-tube. She developed projectile vomiting and fevers last night. She was seen in the emergency room. I have been asked to address her cardiovascular status, specifically her heart rate of over 130. PAST MEDICAL HISTORY: Dysphagia, G-tube; multiple sclerosis; functional quadriplegia; neuromuscular disorder; seizure disorder; and gastroparesis. ALLERGIES: None. MEDICATIONS: Reviewed. FAMILY HISTORY: Noncontributory. SOCIAL HISTORY: Negative for smoking, alcohol, or substance abuse. ADVANCED DIRECTIVES: DNR. REVIEW OF SYSTEMS: Not obtainable from the patient. PHYSICAL EXAMINATION: VITAL SIGNS: Blood pressure 160/76, pulse 132, respirations 20, and temperature 100.2 degrees. HEENT: Temporal wasting, ill-appearing, thin and frail, contracted, and nonverbal. LUNGS: Bilateral breath sounds. No rales or wheezes. No accessory muscle use. Oropharynx with dry mucous membranes. CARDIAC: Regular rhythm. Rapid rate. Normal S1 and S2 with no murmur. ABDOMEN: Soft. Mildly distended and nontender. G-tube site intact. EXTREMITIES: No edema. LABORATORY AND IMAGING DATA: White count 14 and hemoglobin 16. Sodium 144 and potassium 2.7. Urinalysis [address] of the abdomen reviewed. EKG, sinus tachycardia. IMPRESSION: 1. Fecal impaction. 2. Hypovolemia. 3. Dehydration. 4. Hypokalemia. 5. Leukocytosis and possible sepsis. PLAN: 1. Hydrate aggressively. 2. Replace potassium. 3. Check magnesium. 4. Bowel regimen. 5. No role for antiarrhythmics. 6. DVT and stress ulcer prophylaxis. 7. Venous duplex to assess for possible source of pulmonary emboli. Mario Alberto Merlos M.D. : GABRIELA JOB#: [id number] CC:
[2019-01-18] MEDS: Piperacillin/Tazobactam 3.375 GM in NS 110 ML IVPB SCH ×3 (05:50→21:55)
[2019-01-18 06:41] LABS: BASOPHILS % (AUTO) 1.2 % (0.0-2.0); EOSINOPHILS % (AUTO) 0.1 % (0.0-3.0); HEMATOCRIT 38.6 % (37.0-47.0); HEMOGLOBIN 12.7 G/DL (12.0-16.0); LYMPHOCYTES % (AUTO) 17.1 % (20.0-45.0); MEAN CORPUSCULAR VOLUME 97 FL (80-99); NEUTROPHILS % (AUTO) 70.6 % (45.0-75.0); PLATELET COUNT 293 K/UL (150-450); RED BLOOD COUNT 3.99 M/UL (4.20-5.40); RED CELL DISTRIBUTION WIDTH 12.9 % (11.6-14.8); WHITE BLOOD COUNT 6.6 K/UL (4.8-10.8)
[2019-01-18 06:55] LABS: ANION GAP 11 mmol/L (5-15); BLOOD UREA NITROGEN 17 mg/dL (7-18); CARBON DIOXIDE 25 MMOL/L (21-32); CHLORIDE 116 MMOL/L (98-107); CREATININE 0.7 MG/DL (0.55-1.30); SODIUM 152 MMOL/L (136-145)
[2019-01-18 06:56] LABS: POTASSIUM 2.3 MMOL/L (3.5-5.1)
--- NOTE | 2019-01-18 06:59 | NUR ---
NURSE NOTES: Potassium at 2.3 from AM lab draw. Dr Starr at bedside, made aware. Per MD, he will write new orders.
--- NOTE | 2019-01-18 07:01 | NUR ---
HAND-OFF: Report given to Daniel.
--- NOTE | 2019-01-18 07:29 | General Progress Note ---
Assessment/Plan Problem List: (1) Sepsis ICD Codes: A41.9 - Sepsis, unspecified organism SNOMED: 35148997 (2) Tachycardia ICD Codes: R00.0 - Tachycardia, unspecified SNOMED: 7948357 (3) Hypokalemia ICD Codes: E87.6 - Hypokalemia SNOMED: 85253125 (4) Hypernatremia ICD Codes: E87.0 - Hyperosmolality and hypernatremia SNOMED: 001839840 (5) Encephalopathy acute ICD Codes: G93.40 - Encephalopathy, unspecified SNOMED: 48173430, 985667507 (6) Fecal impaction in rectum ICD Codes: K56.41 - Fecal impaction SNOMED: 87226639 (7) Demyelinating disease of central nervous system ICD Codes: G37.9 - Demyelinating disease of central nervous system, unspecified SNOMED: 2891642 (8) UTI (urinary tract infection) ICD Codes: N39.0 - Urinary tract infection, site not specified SNOMED: 62041878 (9) Intractable vomiting ICD Codes: R11.10 - Vomiting, unspecified SNOMED: 654094996 Status: stable, not improved Assessment/Plan: bowel regime iv abx follow up cultures replace lytes hypotonic ivf gt feeds guarded Subjective ROS Limited/Unobtainable: Yes Constitutional: Reports: malaise, weakness HEENT: Reports: no symptoms Cardiovascular: Reports: irregular heart rate Respiratory: Reports: cough Gastrointestinal/Abdominal: Reports: constipated Genitourinary: Reports: no symptoms Neurologic/Psychiatric: Reports: pre-existing deficit Endocrine: Reports: no symptoms Hematologic/Lymphatic: Reports: no symptoms Allergies: Coded Allergies: No Known Allergies (Unverified , 11/08/18) All Systems: reviewed and negative except above Subjective continued tachycardia with low grade fever. low k and high mg noted. +large bowel movement, Objective Last 24 Hour Vital Signs Date Time Temp Pulse Resp B/P (MAP) Pulse Ox O2 Delivery O2 Flow Rate FiO2 01/18/19 04:00 99.7 133 17 133/84 (100) 94 01/18/19 02:27 100.2 01/18/19 00:00 100.7 133 17 128/83 (98) 94 01/17/19 23:06 Room Air 01/17/19 20:00 98.2 120 17 115/72 (86) 94 10/15/19 16:00 100.3 104 17 117/74 (88) 94 01/17/19 12:00 97.1 108 22 120/80 (93) 94 01/17/19 08:30 Room Air 01/17/19 08:00 101.7 111 24 127/68 (87) 94 Intake and Output 01/17/19 01/18/19 18:59 06:59 Output Total 1850 ml Balance -1850 ml Output Urine Total 1850 ml # Voids 1 # Bowel Movements 1 Laboratory Tests 01/17/19 08:36: Lactic Acid Level 0.50 01/18/19 06:05: White Blood Count 6.6, Red Blood Count 3.99L, Hemoglobin 12.7, Hematocrit 38.6, Mean Corpuscular Volume 97, Mean Corpuscular Hemoglobin 31.8H, Mean Corpuscular Hemoglobin Concent 32.9, Red Cell Distribution Width 12.9, Platelet Count 293, Mean Platelet Volume 6.2L, Neutrophils (%) (Auto) 70.6, Lymphocytes (%) (Auto) 17.1L, Monocytes (%) (Auto) 11.0H, Eosinophils (%) (Auto) 0.1, Basophils (%) ( Auto) 1.2, Sodium Level 152H, Potassium Level 2.3*L, Chloride Level 116H, Carbon Dioxide Level 25, Anion Gap 11, Blood Urea Nitrogen 17, Creatinine 0.7, Estimat Glomerular Filtration Rate > 60, Glucose Level 143H, Calcium Level 9.0, Magnesium Level 2.3, Thyroid Stimulating Hormone (TSH) 1.177 Height (Feet): 5 Height (Inches): 6.00 Weight (Pounds): 139 General Appearance: WD/WN, no apparent distress Neck: supple Cardiovascular: normal rate Respiratory/Chest: chest wall non-tender, lungs clear, normal breath sounds Abdomen: normal bowel sounds, non tender, soft, no organomegaly Edema: no edema noted Arm (L), no edema noted Arm (R), no edema noted Leg (L), no edema noted Leg (R), no edema noted Pedal (L), no edema noted Pedal (R), no edema noted Generalized Neurologic: motor weakness, aphasia Jasper Starr MD Jan 18, 2019 07:29
--- NOTE | 2019-01-18 07:45 | NUR ---
NURSE NOTES: Received pt in bed, sleeping. Room air. No s/s of distress/pain. IV on L hand 24 g intact and patent, and will start running 1/2 NS @ 125 ml/hr. R FA 20g saline lock. NPO with no feeding at this time. Side rails x 2. Bed in the lowest, locked, and alarm on. Call light within reach. Will continue to monitor
[2019-01-18 08:00] VITALS: BP_SYST 105; BP_SYST 114; BP_DIAS 52; BP_DIAS 79
[2019-01-18] MEDS: Docusate 250mg cap ORAL SCH ×2 (08:11→18:17)
[2019-01-18] MEDS: Cyclobenzaprine 10mg Tab GT SCH ×3 (08:13→18:17)
--- NOTE | 2019-01-18 08:13 | NUR ---
CASE MANAGEMENT:REVIEW 43 YR OLD FEMALE BIBA FROM [facility] CC: PROJECTILE COFFEE GROUND EMESIS. BLOOD NOTED ON COLOSTOMY BAG BY SNF STAFF SI:INTRACTABLE VOMITING. UTI 100 16 116/70 92% ON RA WBC+14.4 H/H+16.1/47.5 IS: IV ROCEPHIN BLOOD CX CXR CT ABD/PELVIS URINE CX : TO MED/SURG
[2019-01-18] MEDS: Milk of Magnesia 30ml Ud GT SCH (08:14)
[2019-01-18] MEDS: Lactulose 20gm/30ml UDC GT SCH ×3 (08:14→18:17)
[2019-01-18] MEDS: Pantoprazole Inj IVP SCH (08:14)
[2019-01-18] MEDS: Heparin 5000 units/ml inj SUBQ SCH ×2 (08:15→20:40)
[2019-01-18] MEDS: HYDROcodone/Acetamin 10/325 tab ORAL PRN (09:30)
--- NOTE | 2019-01-18 10:54 | Infectious Diseases Prog Note ---
Assessment/Plan Assessment/Plan antibiotics : zosyn A 1. aspiration pneumonia 2. leucocytosis resolved 3. streptococcus UTI 4. seizures 5. demyelinating disease P 1. continue zosyn 2. will follow up cultures Subjective ROS Limited/Unobtainable: Yes Allergies: Coded Allergies: No Known Allergies (Unverified , 11/08/18) Objective Vital Signs Last 24 Hour Vital Signs Date Time Temp Pulse Resp B/P (MAP) Pulse Ox O2 Delivery O2 Flow Rate FiO2 01/18/19 09:00 Room Air 01/18/19 08:00 97.7 106 16 114/79 (91) 94 01/18/19 04:00 99.7 133 17 133/84 (100) 94 01/18/19 02:27 100.2 01/18/19 00:00 100.7 133 17 128/83 (98) 94 01/17/19 23:06 Room Air 01/17/19 20:00 98.2 120 17 115/72 (86) 94 01/17/19 16:00 100.3 104 17 117/74 (88) 94 01/17/19 12:00 97.1 108 22 120/80 (93) 94 Height (Feet): 5 Height (Inches): 6.00 Weight (Pounds): 139 Respiratory/Chest: lungs clear Cardiovascular: normal rate, regular rhythm, no gallop/murmur Abdomen: soft, non tender, other - GT Extremities: no edema Microbiology Date/Time Source Procedure Growth Status 01/16/19 19:54 Blood Blood Culture - Preliminary NO GROWTH AFTER 24 HOURS Resulted 01/16/19 19:30 Blood Blood Culture - Preliminary NO GROWTH AFTER 24 HOURS Resulted 01/16/19 20:46 Urine,Clean Catch Urine Culture - Preliminary Streptococcus Species Mixed Urogenital Contaminants Resulted 01/16/19 21:30 Rectum Received Laboratory Tests Test 01/18/19 06:05 White Blood Count 6.6 K/UL (4.8-10.8) Red Blood Count 3.99 M/UL (4.20-5.40) L Hemoglobin 12.7 G/DL (12.0-16.0) Hematocrit 38.6 % (37.0-47.0) Mean Corpuscular Volume 97 FL (80-99) Mean Corpuscular Hemoglobin 31.8 PG (27.0-31.0) H Mean Corpuscular Hemoglobin Concent 32.9 G/DL (32.0-36.0) Red Cell Distribution Width 12.9 % (11.6-14.8) Platelet Count 293 K/UL (150-450) Mean Platelet Volume 6.2 FL (6.5-10.1) L Neutrophils (%) (Auto) 70.6 % (45.0-75.0) Lymphocytes (%) (Auto) 17.1 % (20.0-45.0) L Monocytes (%) (Auto) 11.0 % (1.0-10.0) H Eosinophils (%) (Auto) 0.1 % (0.0-3.0) Basophils (%) (Auto) 1.2 % (0.0-2.0) Sodium Level 152 MMOL/L (136-145) H Potassium Level 2.3 MMOL/L (3.5-5.1) *L Chloride Level 116 MMOL/L (98-107) H Carbon Dioxide Level 25 MMOL/L (21-32) Anion Gap 11 mmol/L (5-15) Blood Urea Nitrogen 17 mg/dL (7-18) Creatinine 0.7 MG/DL (0.55-1.30) Estimat Glomerular Filtration Rate > 60 mL/min (>60) Glucose Level 143 MG/DL (74-106) H Calcium Level 9.0 MG/DL (8.5-10.1) Magnesium Level 2.3 MG/DL (1.8-2.4) Thyroid Stimulating Hormone (TSH) 1.177 uiU/mL (0.358-3.740) Current Medications Medications (Trade) Dose Ordered Sig/Alex Route PRN Reason Start Time Stop Time Status Last Admin Dose Admin Acetaminophen (Tylenol) 650 mg Q4H PRN ORAL Mild Pain/Temp > 100.5 01/17/19 03:45 02/16/19 03:44 01/18/19 01:57 Acetaminophen/ Hydrocodone Bitart ([place] ) 1 tab Q4H PRN ORAL For Pain 01/16/19 22:00 01/23/19 21:59 01/18/19 09:30 Barium Sulfate (Barium EZ Gas II) 1 ea NOW PRN [facility] Radiology Procedure 01/17/19 20:45 01/20/19 20:44 Barium Sulfate (Barium EZ HD) 1 ea NOW PRN Radiology Procedure 01/17/19 20:45 01/20/19 20:44 Barium Sulfate (Varibar Thin Liquid powder) 148 gm NOW PRN Radiology Procedure 01/17/19 20:45 01/20/19 20:44 Cyclobenzaprine HCl (Flexeril) 10 mg THREE TIMES A DAY GT 01/17/19 09:00 02/16/19 08:59 01/18/19 08:13 Docusate Sodium (Colace) 250 mg BID ORAL 01/16/19 22:00 02/15/19 21:59 01/18/19 08:11 Fentanyl (Duragesic) 1 patch EVERY 72 HOURS TDERMAL 01/17/19 09:00 01/24/19 08:59 01/17/19 09:12 Heparin Sodium (Porcine) (Heparin 5000 units/ml) 5,000 units EVERY 12 HOURS SUBQ 01/17/19 21:00 02/16/19 20:59 01/18/19 08:15 Iohexol (OMNIPAQUE-300 100ml) 100 ml NOW PRN [facility] Radiology Procedure 01/16/19 20:45 01/18/19 20:42 Lactulose (Cephulac) 30 gm THREE TIMES A DAY GT 01/16/19 22:00 02/15/19 21:59 01/18/19 08:14 Levetiracetam (Keppra) 1,000 mg QHS GT 01/17/19 21:00 02/16/19 20:59 01/17/19 20:50 Lorazepam (Ativan) 0.5 mg Q4H PRN GT For Anxiety 01/16/19 22:00 01/23/19 21:59 Magnesium Hydroxide (Mom) 30 ml DAILY GT 01/17/19 09:00 02/16/19 08:59 01/18/19 08:14 Miscellaneous Medication (fentaNYL Destruction) 1 ea Q72H MISC 01/20/19 08:59 02/19/19 08:58 Multivitamins (Multivitamins) 1 tab DAILY GT 01/17/19 09:00 02/16/19 08:59 01/18/19 08:13 Pantoprazole (Protonix) 40 mg DAILY IVP 01/17/19 21:00 02/16/19 20:59 01/18/19 08:14 Piperacillin Sod/ Tazobactam Sod 3.375 gm/Sodium Chloride 110 ml @ 27.5 mls/hr EVERY 8 HOURS IVPB 01/17/19 06:00 01/22/19 05:59 01/18/19 05:50 Potassium Chloride 100 ml @ 100 mls/hr Q1HR IVPB 01/18/19 08:00 01/18/19 11:59 01/18/19 10:44 Sennosides (Senokot) 8.6 mg DAILYPRN PRN GT Constipation 01/16/19 22:00 02/15/19 21:59 Sodium Chloride 1,000 ml @ 125 mls/hr Q8H IV 01/18/19 07:30 02/17/19 07:29 01/18/19 08:12 Mateusz Bone MD Jan 18, 2019 10:54
--- NOTE | 2019-01-18 11:45 | NUR ---
RD ASSESSMENT & RECOMMENDATIONS SEE CARE ACTIVITY FOR COMPLETE ASSESSMENT DAILY ESTIMATED NEEDS: Needs based on Sepsis/ 60kg 25-35 kcals/kg 9717-3120 total kcals 1-2 g protein/kg 60-120 g total protein 25-30 mL/kg 3333-1822 total fluid mLs NUTRITION DIAGNOSIS: * Swallowing difficulty R/T dysphagia, h/o demyelinating disease as evidenced by pt is bedbound, PEG dep. CURRENT TF:NPO ENTERAL NUTRITION RECOMMENDATIONS: Jevity 1.2 @ 55ml/hr x 24 hrs to provide 1320ml, 1584kcal, 73g pro, 1065ml free water * As medically able, rec TF as above to meet 100% est needs * HOB over 30 degrees/ water flush per MD ------- ADDITIONAL RECOMMENDATIONS: * CALIBRATED BEDSCALE WT FOR ACCURATE CBW * Monitor lytes daily, replete as needed (K 2.3*) * TF initiation per MD, Tf recs as above * Calibrated bed scale wts for eval * Monitor hydration status, rec continued oral hygiene
--- NOTE | 2019-01-18 14:45 | Diagnostic Imaging Report ---
Indication: Abdominal distention, abnormal findings on recent CT scan Technique: Water-soluble contrast injected through pre-existing gastrostomy. Serial overhead films obtained Comparison: 02/22/2019. 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 However, bowel loops are nondilated. The stomach is nondistended. There is a gastrostomy in place. Suspect images postcontrast injection demonstrate normal caliber stomach. There is suggestion of a small hiatal hernia. There is the breasts of contrast across the pylorus into the small bowel. At 30 minutes, a significant amount of contrast has emptied into the small bowel. There is no evidence of gastric outlet or duodenal obstruction. Impression: No evidence of gastric outlet or duodenal obstruction. Gastric dilatation demonstrated on recent CT scan was presumably transient
[2019-01-18 16:00] VITALS: BP 124/86
[2019-01-18 16:47] LABS: ALANINE AMINOTRANSFERASE 106 U/L (12-78); ALBUMIN 3.7 G/DL (3.4-5.0); ALKALINE PHOSPHATASE 94 U/L (46-116); ANION GAP 10 mmol/L (5-15); ASPARTATE AMINO TRANSFERASE 83 U/L (15-37); BILIRUBIN,TOTAL 0.4 MG/DL (0.2-1.0); BLOOD UREA NITROGEN 17 mg/dL (7-18); CALCIUM 9.4 MG/DL (8.5-10.1); CARBON DIOXIDE 26 MMOL/L (21-32); CHLORIDE 126 MMOL/L (98-107); CREATININE 0.6 MG/DL (0.55-1.30); POTASSIUM 3.3 MMOL/L (3.5-5.1)
[2019-01-18 16:51] LABS: SODIUM 163 MMOL/L (136-145)
--- NOTE | 2019-01-18 19:27 | NUR ---
HAND-OFF: Report given to HOLLY Bobby.
[2019-01-18 20:00] VITALS: BP 127/79
--- NOTE | 2019-01-18 20:00 | NUR ---
NURSE NOTES: RECEIVED PATIENT LYING IN BED, EYES OPEN, NON VERBAL, NO SIGNS AND SYMPTOMS OF ACUTE CARDIO RESPIRATORY DISTRESS/SHORTNESS OF BREATH, ALL NEEDS ANTICIPATED AND MET BY NURSING STAFF. NPO/ABDOMEN SOFT/NON DISTENDED/AUDIBLE BOWEL SOUNDS. REPOSITIONED FOR COMFORT/PRESSURE RELIEF, TOLERATED WELL. IV FLUIDS INFUSING RIGHT FORE ARM/GAUGE 20, NO REDNESS/SWELLING NOTED TO SITE. SIDE RAILS UP X3/BED IN LOWEST POSITION FOR SAFETY, CALL LIGHT WITHIN REACH, FREQUENT ROUNDING FOR SAFETY/NEEDS. NAD.
--- NOTE | 2019-01-18 21:33 | General Progress Note ---
Assessment/Plan Status: stable, not improved Assessment/Plan: Assessment - Rectal stool impaction, currently resolved - Fever, ? 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 no vomiting UGI negative Objective Last 24 Hour Vital Signs Date Time Temp Pulse Resp B/P (MAP) Pulse Ox O2 Delivery O2 Flow Rate FiO2 01/18/19 20:00 100.1 119 21 127/79 (95) 01/18/19 16:00 99.3 109 21 124/86 (99) 97 01/18/19 09:00 Room Air 01/18/19 08:00 97.7 106 16 114/79 (91) 94 01/18/19 04:00 99.7 133 17 133/84 (100) 94 01/18/19 02:27 100.2 01/18/19 00:00 100.7 133 17 128/83 (98) 94 01/17/19 23:06 Room Air Intake and Output 01/17/19 01/18/19 19:00 07:00 Output Total 1850 ml Balance -1850 ml Output Urine Total 1850 ml # Voids 1 # Bowel Movements 1 Laboratory Tests 01/18/19 06:05: White Blood Count 6.6, Red Blood Count 3.99L, Hemoglobin 12.7, Hematocrit 38.6, Mean Corpuscular Volume 97, Mean Corpuscular Hemoglobin 31.8H, Mean Corpuscular Hemoglobin Concent 32.9, Red Cell Distribution Width 12.9, Platelet Count 293, Mean Platelet Volume 6.2L, Neutrophils (%) (Auto) 70.6, Lymphocytes (%) (Auto) 17.1L, Monocytes (%) (Auto) 11.0H, Eosinophils (%) (Auto) 0.1, Basophils (%) ( Auto) 1.2, Sodium Level 152H, Potassium Level 2.3*L, Chloride Level 116H, Carbon Dioxide Level 25, Anion Gap 11, Blood Urea Nitrogen 17, Creatinine 0.7, Estimat Glomerular Filtration Rate > 60, Glucose Level 143H, Calcium Level 9.0, Magnesium Level 2.3, Thyroid Stimulating Hormone (TSH) 1.177 01/18/19 16:12: Sodium Level 163#*H, Potassium Level 3.3L, Chloride Level 126H, Carbon Dioxide Level 26, Anion Gap 10, Blood Urea Nitrogen 17, Creatinine 0.6, Estimat Glomerular Filtration Rate > 60, Glucose Level 103, Calcium Level 9.4, Total Bilirubin 0.4, Aspartate Amino Transf (AST/SGOT) 83H, Alanine Aminotransferase ( ALT/SGPT) 106H, Alkaline Phosphatase 94, Total Protein 7.3, Albumin 3.7, Globulin 3.6, Albumin/Globulin Ratio 1.0 Height (Feet): 5 Height (Inches): 6.00 Weight (Pounds): 139 Objective Debilitated NCAT supple CTA RR abd soft (++) contracted Alex Joseph MD Jan 18, 2019 21:33
[2019-01-19] VITALS: BP 111/69
--- NOTE | 2019-01-19 02:00 | Progress Note ---
DATE: 01/18/2019 CARDIOLOGY PROGRESS NOTE SUBJECTIVE: The patient continues to have low-grade fever, rapid heart rate, she did pass a bowel movement. She remains on hypotonic IV fluid hydration. PHYSICAL EXAMINATION: VITAL SIGNS: Blood pressure 114/79, pulse 106, respiratory rate 16, T-max 100.1. Contractures. LUNGS: Diminished breath sounds. HEART: Regular rhythm. Rapid rate. Normal S1, S2. ABDOMEN: Soft, minimally distended with no guarding or rebound. LABORATORY DATA: White count 6.6 and hemoglobin 12.7. Sodium 163, potassium 3.3, chloride 126, BUN 17, and creatinine 0.6. IMPRESSION: 1. Dehydration. 2. Hypernatremia. 3. Hypovolemia. 4. Secondary sinus tachycardia. 5. Urinary tract infection. 6. Possible sepsis. 7. Hypokalemia. 8. Neuromuscular disorder. PLAN: 1. Hypotonic IV fluids. 2. Replace potassium. 3. Nutrition by feeding tube. 4. Bowel regimen. Mario Alberto Merlos M.D. DR: Paul JOB#: [id number] CC:
[2019-01-19 04:00] VITALS: BP 152/82
[2019-01-19] MEDS: Piperacillin/Tazobactam 3.375 GM in NS 110 ML IVPB SCH ×3 (05:34→21:34)
--- NOTE | 2019-01-19 06:40 | NUR ---
NURSE NOTES: TELEPHONE CALL PLACED TO DR. Aida ARMENDARIZ REGARDING ELEVATED TEMPERATURE; REQUESTED POSSIBLE BLOOD CULTURE, WILL ENDORSE TO AM SHIFT, CURRENT TEMPERATURE 99.4, T MAX 102, PROVIDED TYLENOL AND COOLING MEASURES THROUGHOUT THE NIGHT.
[2019-01-19 07:19] LABS: ALANINE AMINOTRANSFERASE 92 U/L (12-78); ALBUMIN 3.6 G/DL (3.4-5.0); ALBUMIN/GLOBULIN RATIO 0.9 (1.0-2.7); ALKALINE PHOSPHATASE 89 U/L (46-116); ANION GAP 13 mmol/L (5-15); ASPARTATE AMINO TRANSFERASE 65 U/L (15-37); BILIRUBIN,TOTAL 0.4 MG/DL (0.2-1.0); BLOOD UREA NITROGEN 19 mg/dL (7-18); CALCIUM 9.1 MG/DL (8.5-10.1); CARBON DIOXIDE 23 MMOL/L (21-32); CHLORIDE 123 MMOL/L (98-107); CREATININE 0.7 MG/DL (0.55-1.30); SODIUM 159 MMOL/L (136-145)
[2019-01-19 07:23] LABS: POTASSIUM 2.5 MMOL/L (3.5-5.1)
--- NOTE | 2019-01-19 07:25 | NUR ---
HAND-OFF: Report given to HOLLY LOMBARDI.
--- NOTE | 2019-01-19 07:45 | NUR ---
NURSE NOTES: Patient awake, non-verbal; on room air, no sing of shortness of breath; no sing of chest pain; IV Right-Hand 22G Zosyn running; Tube feeding Vital 1.2 running at 25cc/Hr, no residual, head of the bed elevated; side rails padded for seizure percussion, breaks engaged, bed at lowest position; will keep monitoring.
--- NOTE | 2019-01-19 07:55 | NUR ---
NURSE NOTES: I received a call for Judi brandon reported that K 2.5; MD Starr and charge nurse Oralia is aware.
--- NOTE | 2019-01-19 07:57 | NUR ---
NURSE NOTES: I received a call for Denita brandon reported that patient is positive for VRE-Urine; MD Starr and MD Bone aware; anshul nurseOralia is aware.
[2019-01-19 08:00] VITALS: BP 114/73
--- NOTE | 2019-01-19 08:00 | General Progress Note ---
Assessment/Plan Problem List: (1) Sepsis ICD Codes: A41.9 - Sepsis, unspecified organism SNOMED: 92210108 (2) Tachycardia ICD Codes: R00.0 - Tachycardia, unspecified SNOMED: 3466591 (3) Hypokalemia ICD Codes: E87.6 - Hypokalemia SNOMED: 21319875 (4) Hypernatremia ICD Codes: E87.0 - Hyperosmolality and hypernatremia SNOMED: 530389641 (5) Encephalopathy acute ICD Codes: G93.40 - Encephalopathy, unspecified SNOMED: 53456984, 011432537 (6) Fecal impaction in rectum ICD Codes: K56.41 - Fecal impaction SNOMED: 33255236 (7) Demyelinating disease of central nervous system ICD Codes: G37.9 - Demyelinating disease of central nervous system, unspecified SNOMED: 7793267 (8) UTI (urinary tract infection) ICD Codes: N39.0 - Urinary tract infection, site not specified SNOMED: 41976974 (9) Intractable vomiting ICD Codes: R11.10 - Vomiting, unspecified SNOMED: 854645458 Status: stable, not improved Assessment/Plan: bowel regime- decrease laxatives iv abx follow up cultures replace lytes check cdiff gt feeds guarded Subjective ROS Limited/Unobtainable: Yes Constitutional: Reports: malaise, weakness HEENT: Reports: no symptoms Cardiovascular: Reports: no symptoms Respiratory: Reports: no symptoms Gastrointestinal/Abdominal: Reports: difficulty swallowing Genitourinary: Reports: no symptoms Neurologic/Psychiatric: Reports: pre-existing deficit Endocrine: Reports: no symptoms Hematologic/Lymphatic: Reports: anemia Allergies: Coded Allergies: No Known Allergies (Unverified , 11/08/18) All Systems: reviewed and negative except above Subjective continued tachycardia with low grade fever. low k on iv abx. no distress Objective Last 24 Hour Vital Signs Date Time Temp Pulse Resp B/P (MAP) Pulse Ox O2 Delivery O2 Flow Rate FiO2 01/19/19 04:45 99.4 01/19/19 04:00 102.0 83 21 152/82 (105) 96 01/19/19 00:00 101.0 105 22 111/69 (83) 96 01/18/19 21:00 Room Air 01/18/19 20:00 100.1 119 21 127/79 (95) 10/16/19 16:00 99.3 109 21 124/86 (99) 97 01/18/19 09:00 Room Air 01/18/19 08:00 97.7 106 16 114/79 (91) 94 Intake and Output 01/18/19 01/19/19 18:59 06:59 Intake Total 527.5 ml Balance 527.5 ml Intake Free Water 60 ml IV Total 392.5 ml Tube Feeding 75 ml # Voids 3 # Bowel Movements 9 6 Laboratory Tests 01/18/19 16:12: Sodium Level 163#*H, Potassium Level 3.3L, Chloride Level 126H, Carbon Dioxide Level 26, Anion Gap 10, Blood Urea Nitrogen 17, Creatinine 0.6, Estimat Glomerular Filtration Rate > 60, Glucose Level 103, Calcium Level 9.4, Total Bilirubin 0.4, Aspartate Amino Transf (AST/SGOT) 83H, Alanine Aminotransferase ( ALT/SGPT) 106H, Alkaline Phosphatase 94, Total Protein 7.3, Albumin 3.7, Globulin 3.6, Albumin/Globulin Ratio 1.0 01/19/19 05:02: Sodium Level 159H, Potassium Level 2.5*L, Chloride Level 123H, Carbon Dioxide Level 23, Anion Gap 13, Blood Urea Nitrogen 19H, Creatinine 0.7, Estimat Glomerular Filtration Rate > 60, Glucose Level 115H, Calcium Level 9.1, Total Bilirubin 0.4, Aspartate Amino Transf (AST/SGOT) 65H, Alanine Aminotransferase ( ALT/SGPT) 92H, Alkaline Phosphatase 89, Total Protein 7.7, Albumin 3.6, Globulin 4.1, Albumin/Globulin Ratio 0.9L Height (Feet): 5 Height (Inches): 6.00 Weight (Pounds): 139 Objective General Appearance: WD/WN, no apparent distress Neck: supple Cardiovascular: normal rate Respiratory/Chest: chest wall non-tender, lungs clear, normal breath sounds Abdomen: normal bowel sounds, non tender, soft, no organomegaly Edema: no edema noted Arm (L), no edema noted Arm (R), no edema noted Leg (L), no edema noted Leg (R), no edema noted Pedal (L), no edema noted Pedal (R), no edema noted Generalized Neurologic: motor weakness, aphasia Jasper Starr MD Jan 19, 2019 08:00
[2019-01-19] MEDS: Milk of Magnesia 30ml Ud GT SCH (08:54)
[2019-01-19] MEDS: Docusate 250mg cap ORAL SCH (08:54)
[2019-01-19] MEDS: Pantoprazole Inj IVP SCH (08:54)
[2019-01-19] MEDS: Lactulose 20gm/30ml UDC GT SCH ×2 (08:54→17:34)
[2019-01-19] MEDS: Cyclobenzaprine 10mg Tab GT SCH ×3 (08:55→17:35)
[2019-01-19] MEDS: Heparin 5000 units/ml inj SUBQ SCH ×2 (08:55→20:14)
[2019-01-19] MEDS: HYDROcodone/Acetamin 10/325 tab ORAL PRN (10:38)
--- NOTE | 2019-01-19 11:19 | General Progress Note ---
Assessment/Plan Status: stable, not improved Assessment/Plan: Assessment - Rectal stool impaction, resolved - Fever, ? source - Abnormal LFT - distended stomach / duodenum - functional - resolved - MS/contracted/bed bound - hypernatremia / hypokalemia Recommendations - continue TF - free water - replace K - check HIDA scan - await C Diff - elevate HOB - monitor residuals - bowel regimen Subjective Allergies: Coded Allergies: No Known Allergies (Unverified , 11/08/18) Subjective above noted d/w staffing associate no vomiting tolerating TF Objective Last 24 Hour Vital Signs Date Time Temp Pulse Resp B/P (MAP) Pulse Ox O2 Delivery O2 Flow Rate FiO2 01/19/19 09:00 Room Air 01/19/19 08:00 99.1 99 18 114/73 (87) 95 01/19/19 04:45 99.4 01/19/19 04:00 102.0 83 21 152/82 (105) 96 01/19/19 00:00 101.0 105 22 111/69 (83) 96 01/18/19 21:00 Room Air 01/18/19 20:00 100.1 119 21 127/79 (95) 01/18/19 16:00 99.3 109 21 124/86 (99) 97 Intake and Output 01/18/19 01/19/19 18:59 06:59 Intake Total 527.5 ml Balance 527.5 ml Intake Free Water 60 ml IV Total 392.5 ml Tube Feeding 75 ml # Voids 3 # Bowel Movements 9 6 Laboratory Tests 01/18/19 16:12: Sodium Level 163#*H, Potassium Level 3.3L, Chloride Level 126H, Carbon Dioxide Level 26, Anion Gap 10, Blood Urea Nitrogen 17, Creatinine 0.6, Estimat Glomerular Filtration Rate > 60, Glucose Level 103, Calcium Level 9.4, Total Bilirubin 0.4, Aspartate Amino Transf (AST/SGOT) 83H, Alanine Aminotransferase ( ALT/SGPT) 106H, Alkaline Phosphatase 94, Total Protein 7.3, Albumin 3.7, Globulin 3.6, Albumin/Globulin Ratio 1.0 01/19/19 05:02: Sodium Level 159H, Potassium Level 2.5*L, Chloride Level 123H, Carbon Dioxide Level 23, Anion Gap 13, Blood Urea Nitrogen 19H, Creatinine 0.7, Estimat Glomerular Filtration Rate > 60, Glucose Level 115H, Calcium Level 9.1, Total Bilirubin 0.4, Aspartate Amino Transf (AST/SGOT) 65H, Alanine Aminotransferase ( ALT/SGPT) 92H, Alkaline Phosphatase 89, Total Protein 7.7, Albumin 3.6, Globulin 4.1, Albumin/Globulin Ratio 0.9L Height (Feet): 5 Height (Inches): 6.00 Weight (Pounds): 139 Objective Debilitated NCAT supple CTA RR abd soft (++) contracted Alex Joseph MD Jan 19, 2019 11:19
[2019-01-19 12:00] VITALS: BP 119/82
--- NOTE | 2019-01-19 12:43 | NUR ---
NURSE NOTES: I communicated Gerhard from Nuclear medicine regarding the order I received from MD Joseph for this patient HIDA scan; Gerhard said patient needs Morphine Sulfate 2mg IVP once PRN for the procedure and should keep patient NPO; I communicated the matter to MD Joseph, waiting to get an order from MD Joseph
--- NOTE | 2019-01-19 13:20 | NUR ---
NURSE NOTES: I received an order from MD Joseph for Morsphine Sulfate 2MG IVP PRN Once; and to do the HIDA Scan for tomorrow, 01/20/19.
[2019-01-19 13:37] LABS: ALANINE AMINOTRANSFERASE 87 U/L (12-78); ALBUMIN 3.5 G/DL (3.4-5.0); ALBUMIN/GLOBULIN RATIO 0.9 (1.0-2.7); ALKALINE PHOSPHATASE 87 U/L (46-116); ANION GAP 12 mmol/L (5-15); ASPARTATE AMINO TRANSFERASE 56 U/L (15-37); BILIRUBIN,TOTAL 0.4 MG/DL (0.2-1.0); BLOOD UREA NITROGEN 18 mg/dL (7-18); CALCIUM 8.7 MG/DL (8.5-10.1); CARBON DIOXIDE 26 MMOL/L (21-32); CHLORIDE 121 MMOL/L (98-107); CREATININE 0.6 MG/DL (0.55-1.30); POTASSIUM 3.2 MMOL/L (3.5-5.1); SODIUM 158 MMOL/L (136-145)
--- NOTE | 2019-01-19 14:00 | Infectious Diseases Prog Note ---
Assessment/Plan Assessment/Plan A 1. aspiration pneumonia 2. leucocytosis resolved 3. VRE UTI 4. seizures 5. demyelinating disease P 1. continue Zosyn 2. will follow up CXR Subjective ROS Limited/Unobtainable: Yes Constitutional: Reports: fever, other - T hdo=261 Allergies: Coded Allergies: No Known Allergies (Unverified , 11/08/18) Objective Vital Signs Last 24 Hour Vital Signs Date Time Temp Pulse Resp B/P (MAP) Pulse Ox O2 Delivery O2 Flow Rate FiO2 01/19/19 12:00 98.8 95 18 119/82 (94) 97 01/19/19 11:08 99.1 01/19/19 09:00 Room Air 01/19/19 08:00 99.1 99 18 114/73 (87) 95 01/19/19 04:45 99.4 01/19/19 04:00 102.0 83 21 152/82 (105) 96 01/19/19 00:00 101.0 105 22 111/69 (83) 96 01/18/19 21:00 Room Air 01/18/19 20:00 100.1 119 21 127/79 (95) 01/18/19 16:00 99.3 109 21 124/86 (99) 97 Height (Feet): 5 Height (Inches): 6.00 Weight (Pounds): 139 General Appearance: no acute distress HEENT: mucous membranes moist Respiratory/Chest: lungs clear Cardiovascular: normal rate Abdomen: soft, non tender, other - GT feeding Extremities: no edema Neurologic/Psychiatric: aphasia, other - opens eyes, smiling Microbiology Date/Time Source Procedure Growth Status 01/16/19 19:54 Blood Blood Culture - Preliminary NO GROWTH AFTER 48 HOURS Resulted 01/16/19 19:30 Blood Blood Culture - Preliminary NO GROWTH AFTER 48 HOURS Resulted 01/16/19 21:30 Nasal Nares MRSA Culture - Final NO METHICILLIN RESISTANT STAPH AUREUS... Complete 01/16/19 20:46 Urine,Clean Catch Urine Culture - Final Enterococcus Faecalis - Vre Mixed Urogenital Contaminants Complete 01/16/19 21:30 Rectum - Final NO CARBAPENEM-RESISTANT ENTEROBACTERI... Complete 01/16/19 21:30 Rectum VRE Culture - Final Enterococcus Faecalis - Vre Complete Laboratory Tests Test 01/18/19 16:12 01/19/19 05:02 01/19/19 12:10 Sodium Level 163 MMOL/L (136-145) #*H 159 MMOL/L (136-145) H 158 MMOL/L (136-145) H Potassium Level 3.3 MMOL/L (3.5-5.1) L 2.5 MMOL/L (3.5-5.1) *L 3.2 MMOL/L (3.5-5.1) L Chloride Level 126 MMOL/L (98-107) H 123 MMOL/L (98-107) H 121 MMOL/L (98-107) H Carbon Dioxide Level 26 MMOL/L (21-32) 23 MMOL/L (21-32) 26 MMOL/L (21-32) Anion Gap 10 mmol/L (5-15) 13 mmol/L (5-15) 12 mmol/L (5-15) Blood Urea Nitrogen 17 mg/dL (7-18) 19 mg/dL (7-18) H 18 mg/dL (7-18) Creatinine 0.6 MG/DL (0.55-1.30) 0.7 MG/DL (0.55-1.30) 0.6 MG/DL (0.55-1.30) Estimat Glomerular Filtration Rate > 60 mL/min (>60) > 60 mL/min (>60) > 60 mL/min (>60) Glucose Level 103 MG/DL (74-106) 115 MG/DL (74-106) H 84 MG/DL (74-106) Calcium Level 9.4 MG/DL (8.5-10.1) 9.1 MG/DL (8.5-10.1) 8.7 MG/DL (8.5-10.1) Total Bilirubin 0.4 MG/DL (0.2-1.0) 0.4 MG/DL (0.2-1.0) 0.4 MG/DL (0.2-1.0) Aspartate Amino Transf (AST/SGOT) 83 U/L (15-37) H 65 U/L (15-37) H 56 U/L (15-37) H Alanine Aminotransferase (ALT/SGPT) 106 U/L (12-78) H 92 U/L (12-78) H 87 U/L (12-78) H Alkaline Phosphatase 94 U/L (46-116) 89 U/L (46-116) 87 U/L (46-116) Total Protein 7.3 G/DL (6.4-8.2) 7.7 G/DL (6.4-8.2) 7.5 G/DL (6.4-8.2) Albumin 3.7 G/DL (3.4-5.0) 3.6 G/DL (3.4-5.0) 3.5 G/DL (3.4-5.0) Globulin 3.6 g/dL 4.1 g/dL 4.0 g/dL Albumin/Globulin Ratio 1.0 (1.0-2.7) 0.9 (1.0-2.7) L 0.9 (1.0-2.7) L Current Medications Medications (Trade) Dose Ordered Sig/Alex Route PRN Reason Start Time Stop Time Status Last Admin Dose Admin Acetaminophen (Tylenol) 650 mg Q4H PRN ORAL Mild Pain/Temp > 100.5 01/17/19 03:45 02/16/19 03:44 01/18/19 01:57 Acetaminophen/ Hydrocodone Bitart (Miller 10) 1 tab Q4H PRN ORAL For Pain 01/16/19 22:00 01/23/19 21:59 01/19/19 10:38 Barium Sulfate (Barium EZ Gas II) 1 ea NOW PRN Radiology Procedure 01/17/19 20:45 01/20/19 20:44 Barium Sulfate (Barium EZ HD) 1 ea NOW PRN Radiology Procedure 01/17/19 20:45 01/20/19 20:44 Barium Sulfate (Varibar Thin Liquid powder) 148 gm NOW PRN Radiology Procedure 01/17/19 20:45 01/20/19 20:44 Cyclobenzaprine HCl (Flexeril) 10 mg THREE TIMES A DAY GT 01/17/19 09:00 02/16/19 08:59 01/19/19 13:00 Dextrose 1,000 ml @ 125 mls/hr Q8H IV 01/19/19 17:13 02/18/19 17:12 Docusate Sodium (Colace) 250 mg BID ORAL 01/16/19 22:00 02/15/19 21:59 01/19/19 08:54 Fentanyl (Duragesic) 1 patch EVERY 72 HOURS TDERMAL 01/17/19 09:00 01/24/19 08:59 01/17/19 09:12 Heparin Sodium (Porcine) (Heparin 5000 units/ml) 5,000 units EVERY 12 HOURS SUBQ 01/17/19 21:00 02/16/19 20:59 01/19/19 08:55 Lactulose (Cephulac) 15 gm BID GT 01/19/19 09:00 02/18/19 08:59 01/19/19 08:54 Levetiracetam (Keppra) 1,000 mg QHS GT 01/17/19 21:00 02/16/19 20:59 01/18/19 20:39 Lorazepam (Ativan) 0.5 mg Q4H PRN GT For Anxiety 01/16/19 22:00 01/23/19 21:59 Magnesium Hydroxide (Mom) 30 ml DAILY GT 01/17/19 09:00 02/16/19 08:59 01/19/19 08:54 Miscellaneous Medication (fentaNYL Destruction) 1 ea Q72H MISC 01/20/19 08:59 02/19/19 08:58 Multivitamins (Multivitamins) 1 tab DAILY GT 01/17/19 09:00 02/16/19 08:59 01/19/19 08:54 Pantoprazole (Protonix) 40 mg DAILY IVP 01/17/19 21:00 02/16/19 20:59 01/19/19 08:54 Piperacillin Sod/ Tazobactam Sod 3.375 gm/Sodium Chloride 110 ml @ 27.5 mls/hr EVERY 8 HOURS IVPB 01/17/19 06:00 01/22/19 05:59 01/19/19 05:34 Potassium Chloride (K-Dur) 40 meq DAILY ORAL 01/19/19 09:00 02/18/19 08:59 01/19/19 08:56 Sennosides (Senokot) 8.6 mg DAILYPRN PRN GT Constipation 01/16/19 22:00 02/15/19 21:59 Vern López MD Jan 19, 2019 14:00
[2019-01-19] MEDS ORDERED: D5NS 1000ml IV ONE (14:05)
[2019-01-19] MEDS ORDERED: Morphine Sulfate 2mg/ml Inj(IV/IM USE ONLY) IVP SCH (15:00)
--- NOTE | 2019-01-19 15:00 | NUR ---
NURSE NOTES: Stool specimen container at the bed side; nursing service director Christy is aware.
--- NOTE | 2019-01-19 15:52 | Diagnostic Imaging Report ---
Indication: Abnormal breath sounds Technique: One view of the chest Comparison: 01/16/2019 Findings: Lungs and pleural spaces are clear. Heart size is normal. There is no significant interim change Impression: No acute process
[2019-01-19 16:00] VITALS: BP 119/76
[2019-01-19] MEDS ORDERED: Acetaminophen 650mg/20.3ml GT PRN (17:00)
[2019-01-19] MEDS: Docusate 100mg/10ml Liq GT SCH (17:35)
--- NOTE | 2019-01-19 19:40 | NUR ---
NURSE NOTES: PATIENT IN BED, AWAKE. DAUGHTER AT BEDSIDE. NO COMPLAINTS OF PAIN AT THIS TIME. NO S/S DISTRESS NOTED. ON DROPLET PRECAUTIONS. BED IN LOWEST POSITION, CALL LIGHT WITHIN REACH, BED ALARM ON. WILL CONTINUE TO MONITOR. Addendum: 01/19/19 at 1942 by VALERIE RAWLS RN RN DISREGARD ENTRY, WRONG PATIENT.
--- NOTE | 2019-01-19 19:41 | NUR ---
HAND-OFF: Report given to HOLLY Kirby.
--- NOTE | 2019-01-19 19:42 | NUR ---
NURSE NOTES: PATIENT IN BED, AWAKE, NONVERBAL. NO S/S RESPIRATORY DISTRESS NOTED. NO S/S OF PAIN NOTED PER FLACC SCALE. ON GT FEEDING, TO BE NPO AT MIDNIGHT. HOB ELEVATED, BED IN LOWEST POSITION, CALL LIGHT WITHIN REACH, BED ALARM ON. WILL CONTINUE TO MONITOR.
[2019-01-19 20:00] VITALS: BP 117/80
--- NOTE | 2019-01-20 | Progress Note ---
DATE: 01/19/2019 CARDIOLOGY PROGRESS NOTE SUBJECTIVE: The patient is having diarrhea. She still has low-grade fevers and rapid heart rate. Pain appears to be controlled. She is nonverbal. OBJECTIVE: VITAL SIGNS: Temperature max 102, blood pressure 111/69, heart rate 105, and respiratory rate 22. Contractures. Increased spasticity. LUNGS: Bilateral breath sounds. HEART: Regular rhythm. Rapid rate. Normal S1, S2. ABDOMEN: Soft. G-tube intact. EXTREMITIES: No edema. LABORATORY DATA: Sodium 159, potassium 2.5, chloride 123, bicarb 23, BUN 19, and creatinine 0.7. Albumin 3.6. IMPRESSION: 1. Sepsis. 2. Hypokalemia. 3. Dehydration. 4. Hypernatremia. 5. Sinus tachycardia. 6. Hyperchloremia. 7. Prerenal azotemia. PLAN: 1. Hypotonic IV fluids. 2. Potassium replacement. 3. Antimicrobials. 4. Follow up cultures. 5. No role for antiarrhythmic therapy. 6. Expect decreased heart rates with control of infection. Mario Alberto Merlos M.D. DR: SUDARSHAN JOB#: [id number] CC:
[2019-01-20 00:38] VITALS: BP 117/89
[2019-01-20 04:29] VITALS: BP 118/72
[2019-01-20] MEDS: Piperacillin/Tazobactam 3.375 GM in NS 110 ML IVPB SCH ×3 (05:07→21:18)
--- NOTE | 2019-01-20 06:13 | NUR ---
NURSE NOTES: PATIENT'S TUBE FEEDING HAS BEEN OFF SINCE MIDNIGHT PENDING PROCEDURE TODAY. PATIENT VITALS STABLE, PATIENT ASLEEP.
[2019-01-20 07:08] LABS: ALANINE AMINOTRANSFERASE 77 U/L (12-78); ALBUMIN 3.2 G/DL (3.4-5.0); ALBUMIN/GLOBULIN RATIO 0.8 (1.0-2.7); ALKALINE PHOSPHATASE 81 U/L (46-116); ANION GAP 11 mmol/L (5-15); ASPARTATE AMINO TRANSFERASE 49 U/L (15-37); BILIRUBIN,TOTAL 0.5 MG/DL (0.2-1.0); BLOOD UREA NITROGEN 14 mg/dL (7-18); CALCIUM 8.7 MG/DL (8.5-10.1); CARBON DIOXIDE 24 MMOL/L (21-32); CHLORIDE 118 MMOL/L (98-107); CREATININE 0.6 MG/DL (0.55-1.30); POTASSIUM 2.9 MMOL/L (3.5-5.1); SODIUM 153 MMOL/L (136-145)
--- NOTE | 2019-01-20 07:25 | NUR ---
HAND-OFF: Report given to MARIO ALBERTO WEST RN.
[2019-01-20 07:36] LABS: CREATINE KINASE 80 U/L (26-308)
--- NOTE | 2019-01-20 07:54 | NUR ---
NURSE NOTES: Patient is awake. No s/s of distress. HOB is elevated. Patient is NPO for HIDA scan today. Side rails are up x3, side rails are padded, bed is locked, and in lowest position. Will continue to monitor.
[2019-01-20 08:00] VITALS: BP 114/81
[2019-01-20] MEDS ORDERED: Morphine Sulfate 2mg/ml Inj(IV/IM USE ONLY) IVP SCH (08:15)
--- NOTE | 2019-01-20 08:34 | General Progress Note ---
Assessment/Plan Problem List: (1) Sepsis ICD Codes: A41.9 - Sepsis, unspecified organism SNOMED: 27604018 (2) Tachycardia ICD Codes: R00.0 - Tachycardia, unspecified SNOMED: 8392028 (3) Hypokalemia ICD Codes: E87.6 - Hypokalemia SNOMED: 86875404 (4) Hypernatremia ICD Codes: E87.0 - Hyperosmolality and hypernatremia SNOMED: 610146461 (5) Encephalopathy acute ICD Codes: G93.40 - Encephalopathy, unspecified SNOMED: 22158808, 858250813 (6) Fecal impaction in rectum ICD Codes: K56.41 - Fecal impaction SNOMED: 51336985 (7) Demyelinating disease of central nervous system ICD Codes: G37.9 - Demyelinating disease of central nervous system, unspecified SNOMED: 3300745 (8) UTI (urinary tract infection) ICD Codes: N39.0 - Urinary tract infection, site not specified SNOMED: 31844933 (9) Intractable vomiting ICD Codes: R11.10 - Vomiting, unspecified SNOMED: 388956723 Status: stable, not improved Assessment/Plan: bowel regime- decrease laxatives iv abx follow up cultures replace lytes check cdiff gt feeds guarded Subjective ROS Limited/Unobtainable: Yes Constitutional: Reports: malaise, weakness HEENT: Reports: no symptoms Cardiovascular: Reports: no symptoms Respiratory: Reports: no symptoms Gastrointestinal/Abdominal: Reports: difficulty swallowing Genitourinary: Reports: no symptoms Neurologic/Psychiatric: Reports: no symptoms Endocrine: Reports: no symptoms Hematologic/Lymphatic: Reports: no symptoms Allergies: Coded Allergies: No Known Allergies (Unverified , 11/08/18) All Systems: reviewed and negative except above Subjective better today. fevers down. HR down. Low k noted. Na still high. on ivf Objective Last 24 Hour Vital Signs Date Time Temp Pulse Resp B/P (MAP) Pulse Ox O2 Delivery O2 Flow Rate FiO2 01/20/19 04:29 97.8 98 16 118/72 (87) 100 01/20/19 00:38 98.0 100 17 117/89 (98) 95 01/19/19 21:07 Room Air 01/19/19 20:00 97.0 98 17 117/80 (92) 95 01/19/19 16:00 98.1 98 17 119/76 (90) 98 01/19/19 12:00 98.8 95 18 119/82 (94) 97 01/19/19 11:08 99.1 01/19/19 09:00 Room Air Intake and Output 01/19/19 01/20/19 19:00 07:00 Intake Total 710.0 ml 645.0 ml Balance 710.0 ml 645.0 ml Intake Free Water 300 ml 60 ml IV Total 110.0 ml 485.0 ml Tube Feeding 300 ml 100 ml # Bowel Movements 1 Laboratory Tests 01/19/19 12:10: Sodium Level 158H, Potassium Level 3.2L, Chloride Level 121H, Carbon Dioxide Level 26, Anion Gap 12, Blood Urea Nitrogen 18, Creatinine 0.6, Estimat Glomerular Filtration Rate > 60, Glucose Level 84, Calcium Level 8.7, Total Bilirubin 0.4, Aspartate Amino Transf (AST/SGOT) 56H, Alanine Aminotransferase ( ALT/SGPT) 87H, Alkaline Phosphatase 87, Total Protein 7.5, Albumin 3.5, Globulin 4.0, Albumin/Globulin Ratio 0.9L 01/20/19 05:17: Sodium Level 153H, Potassium Level 2.9L, Chloride Level 118H, Carbon Dioxide Level 24, Anion Gap 11, Blood Urea Nitrogen 14, Creatinine 0.6, Estimat Glomerular Filtration Rate > 60, Glucose Level 120H, Calcium Level 8.7, Total Bilirubin 0.5, Aspartate Amino Transf (AST/SGOT) 49H, Alanine Aminotransferase ( ALT/SGPT) 77, Alkaline Phosphatase 81, Total Protein 7.0, Albumin 3.2L, Globulin 3.8, Albumin/Globulin Ratio 0.8L, Total Creatine Kinase 80, Hepatitis A IgM Antibody [Pending], Hepatitis B Surface Antigen [Pending], Hepatitis B Core IgM Antibody [Pending], Hepatitis C Antibody [Pending] Height (Feet): 5 Height (Inches): 6.00 Weight (Pounds): 139 Objective General Appearance: WD/WN, no apparent distress Neck: supple Cardiovascular: normal rate Respiratory/Chest: chest wall non-tender, lungs clear, normal breath sounds Abdomen: normal bowel sounds, non tender, soft, no organomegaly Edema: no edema noted Arm (L), no edema noted Arm (R), no edema noted Leg (L), no edema noted Leg (R), no edema noted Pedal (L), no edema noted Pedal (R), no edema noted Generalized Neurologic: motor weakness, aphasia Jasper Starr MD Jan 20, 2019 08:34
[2019-01-20] MEDS: fentaNYL Destruction MISC SCH (08:59)
--- NOTE | 2019-01-20 09:58 | NUR ---
NM Hepatobiliary (HIDA) scan complete.
[2019-01-20] MEDS: Milk of Magnesia 30ml Ud GT SCH (10:05)
[2019-01-20] MEDS: Lactulose 20gm/30ml UDC GT SCH ×2 (10:06→17:34)
[2019-01-20] MEDS: Pantoprazole Inj IVP SCH (10:06)
[2019-01-20] MEDS: Docusate 100mg/10ml Liq GT SCH ×2 (10:06→17:34)
[2019-01-20] MEDS: Cyclobenzaprine 10mg Tab GT SCH ×3 (10:06→17:34)
[2019-01-20] MEDS: Heparin 5000 units/ml inj SUBQ SCH ×2 (10:09→21:18)
--- NOTE | 2019-01-20 11:06 | Diagnostic Imaging Report ---
Indication: Abdominal Pain Technique: 6.2 mCi of technetium 99 m-Choletec was injected intravenously. Planar imaging of the abdomen was then performed every 3 minutes up to approximately 56 minutes. Findings: There is uptake of radiotracer within the liver with good washout of radiotracer from the liver on subsequent imaging. There is excretion into the biliary ducts. Gallbladder activity is present by 10 to 12 minutes indicating patency of the cystic duct. Bowel activity is demonstrated in a timely fashion indicating patency of the common bile duct. IMPRESSION: No evidence of acute cholecystitis. Radiotracer noted within the gallbladder and small bowel indicating patency of the cystic and common bile ducts, respectively.
--- NOTE | 2019-01-20 11:40 | NUR ---
RD ASSESSMENT & RECOMMENDATIONS SEE CARE ACTIVITY FOR COMPLETE ASSESSMENT DAILY ESTIMATED NEEDS: Needs based on Sepsis/ 60kg 25-35 kcals/kg 7276-2856 total kcals 1-2 g protein/kg 60-120 g total protein 25-30 mL/kg 7763-4679 total fluid mLs NUTRITION DIAGNOSIS: * Swallowing difficulty R/T dysphagia, h/o demyelinating disease as evidenced by pt is bedbound, PEG dep. CURRENT TF:NPO ENTERAL NUTRITION RECOMMENDATIONS: Jevity 1.2 @ 55ml/hr x 24 hrs + Prosource 1pkt daily to provide 1320ml, 1584kcal, 73g pro, 1065ml free water * As medically able, rec TF as above to meet 100% est needs * Initiate @low rate 25ml/hr for 6 hrs, advance as tolerated 10ml/hr q4-6 hrs to goal. * HOB over 30 degrees/ water flush per MD ADDITIONAL RECOMMENDATIONS: * CALIBRATED BEDSCALE WT FOR ACCURATE CBW * Monitor lytes daily, replete as needed (K 2.3*-> 2.9) * TF initiation per MD, Tf recs as above * Calibrated bed scale wts for eval * Monitor hydration status, rec continued oral hygiene (na elev) .
[2019-01-20 12:00] VITALS: BP_SYST 124; BP_SYST 125; BP_DIAS 78; BP_DIAS 86
--- NOTE | 2019-01-20 13:54 | NUR ---
CASE MANAGEMENT:REVIEW 01/20/19 SI: SEPSIS. UTI. INTRACTABLE VOMITING 98.0 90 20 114/81 100% ON RA NA+153 K-2.9 IS: IV ZOSYN Q8HRS IV KCL Q1HRS X6 BAGS IVF@125/HR LACTULOSE NG BID KEPPRA GT QHS IV PROTONIX QD : MED/SURG
--- NOTE | 2019-01-20 14:13 | Infectious Diseases Prog Note ---
Assessment/Plan Assessment/Plan A 1. aspiration pneumonia 2. leucocytosis resolved 3. VRE UTI 4. seizures 5. demyelinating disease 6. negative C. difficile & HIDA scan P 1. continue Zosyn 2. repeated CXR negative Subjective ROS Limited/Unobtainable: Yes Constitutional: Denies: fever Allergies: Coded Allergies: No Known Allergies (Unverified , 11/08/18) Objective Vital Signs Last 24 Hour Vital Signs Date Time Temp Pulse Resp B/P (MAP) Pulse Ox O2 Delivery O2 Flow Rate FiO2 01/20/19 08:30 Room Air 01/20/19 08:00 98.0 90 20 114/81 (92) 100 01/20/19 04:29 97.8 98 16 118/72 (87) 100 01/20/19 00:38 98.0 100 17 117/89 (98) 95 01/19/19 21:07 Room Air 01/19/19 20:00 97.0 98 17 117/80 (92) 95 01/19/19 16:00 98.1 98 17 119/76 (90) 98 Height (Feet): 5 Height (Inches): 6.00 Weight (Pounds): 139 General Appearance: no acute distress HEENT: mucous membranes moist Respiratory/Chest: lungs clear Cardiovascular: normal rate Abdomen: soft, non tender, other - GT feeding Extremities: no edema, other - flexion contraction of hands Neurologic/Psychiatric: other - awake, crying Microbiology Date/Time Source Procedure Growth Status 01/20/19 05:35 Stool Clostridium difficile Toxin Assay - Final Complete Laboratory Tests Test 01/20/19 05:17 Sodium Level 153 MMOL/L (136-145) H Potassium Level 2.9 MMOL/L (3.5-5.1) L Chloride Level 118 MMOL/L (98-107) H Carbon Dioxide Level 24 MMOL/L (21-32) Anion Gap 11 mmol/L (5-15) Blood Urea Nitrogen 14 mg/dL (7-18) Creatinine 0.6 MG/DL (0.55-1.30) Estimat Glomerular Filtration Rate > 60 mL/min (>60) Glucose Level 120 MG/DL (74-106) H Calcium Level 8.7 MG/DL (8.5-10.1) Total Bilirubin 0.5 MG/DL (0.2-1.0) Aspartate Amino Transf (AST/SGOT) 49 U/L (15-37) H Alanine Aminotransferase (ALT/SGPT) 77 U/L (12-78) Alkaline Phosphatase 81 U/L (46-116) Total Creatine Kinase 80 U/L (26-308) Total Protein 7.0 G/DL (6.4-8.2) Albumin 3.2 G/DL (3.4-5.0) L Globulin 3.8 g/dL Albumin/Globulin Ratio 0.8 (1.0-2.7) L Hepatitis A IgM Antibody Pending Hepatitis B Surface Antigen Pending Hepatitis B Core IgM Antibody Pending Hepatitis C Antibody Pending Current Medications Medications (Trade) Dose Ordered Sig/Alex Route PRN Reason Start Time Stop Time Status Last Admin Dose Admin Acetaminophen (Tylenol) 650 mg Q4H PRN GT Mild Pain/Temp > 100.5 01/19/19 17:00 02/18/19 16:59 Acetaminophen/ Hydrocodone Bitart ([place] 10) 1 tab Q4H PRN GT For Pain 01/19/19 17:00 01/23/19 21:59 Barium Sulfate (Varibar Thin Liquid powder) 148 gm NOW PRN Radiology Procedure 01/17/19 20:45 01/20/19 20:44 Cyclobenzaprine HCl (Flexeril) 10 mg THREE TIMES A DAY GT 01/17/19 09:00 02/16/19 08:59 01/20/19 10:06 Dextrose 1,000 ml @ 125 mls/hr Q8H IV 01/19/19 17:13 02/18/19 17:12 01/20/19 10:05 Docusate Sodium (Colace) 250 mg BID GT 01/19/19 18:00 02/18/19 17:59 01/20/19 10:06 Fentanyl (Duragesic) 1 patch EVERY 72 HOURS TDERMAL 01/17/19 09:00 01/24/19 08:59 01/20/19 10:18 Heparin Sodium (Porcine) (Heparin 5000 units/ml) 5,000 units EVERY 12 HOURS SUBQ 01/17/19 21:00 02/16/19 20:59 01/20/19 10:09 Lactulose (Cephulac) 15 gm BID GT 01/19/19 09:00 02/18/19 08:59 01/20/19 10:06 Levetiracetam (Keppra) 1,000 mg QHS GT 01/17/19 21:00 02/16/19 20:59 01/19/19 20:13 Lorazepam (Ativan) 0.5 mg Q4H PRN GT For Anxiety 01/16/19 22:00 01/23/19 21:59 Magnesium Hydroxide (Mom) 30 ml DAILY GT 01/17/19 09:00 02/16/19 08:59 01/20/19 10:05 Miscellaneous Medication (fentaNYL Destruction) 1 ea Q72H MISC 01/20/19 08:59 02/19/19 08:58 01/20/19 08:59 Multivitamins (Multivitamins) 1 tab DAILY GT 01/17/19 09:00 02/16/19 08:59 01/20/19 10:06 Pantoprazole (Protonix) 40 mg DAILY IVP 01/17/19 21:00 02/16/19 20:59 01/20/19 10:06 Piperacillin Sod/ Tazobactam Sod 3.375 gm/Sodium Chloride 110 ml @ 27.5 mls/hr EVERY 8 HOURS IVPB 01/17/19 06:00 01/22/19 05:59 01/20/19 05:07 Potassium Chloride 100 ml @ 100 mls/hr Q1HR IVPB 01/20/19 09:00 01/20/19 14:59 01/20/19 14:03 Potassium Chloride (K-Dur) 40 meq DAILY GT 01/20/19 09:00 02/18/19 08:59 01/20/19 10:07 Sennosides (Senokot) 8.6 mg DAILYPRN PRN GT Constipation 01/16/19 22:00 02/15/19 21:59 Vern López MD Jan 20, 2019 14:13
[2019-01-20 16:00] VITALS: BP 125/78
--- NOTE | 2019-01-20 18:47 | General Progress Note ---
Assessment/Plan Status: stable, not improved Assessment/Plan: Assessment - Rectal stool impaction, resolved - Fever - Abnormal LFT - distended stomach / duodenum - functional - resolved - MS/contracted/bed bound - hypernatremia / hypokalemia Recommendations - Restart TF - free water - elevate HOB - monitor residuals - bowel regimen - consider Reglan Subjective Allergies: Coded Allergies: No Known Allergies (Unverified , 11/08/18) Subjective above noted d/w public health staff nurse Had HIDA scan today - negative Objective Last 24 Hour Vital Signs Date Time Temp Pulse Resp B/P (MAP) Pulse Ox O2 Delivery O2 Flow Rate FiO2 01/20/19 16:00 98.0 100 18 125/78 (94) 95 01/20/19 12:00 99.2 91 20 124/86 (99) 97 01/20/19 08:30 Room Air 01/20/19 08:00 98.0 90 20 114/81 (92) 100 01/20/19 04:29 97.8 98 16 118/72 (87) 100 01/20/19 00:38 98.0 100 17 117/89 (98) 95 01/19/19 21:07 Room Air 01/19/19 20:00 97.0 98 17 117/80 (92) 95 Intake and Output 01/19/19 01/20/19 18:59 06:59 Intake Total 710.0 ml 670.0 ml Balance 710.0 ml 670.0 ml Intake Free Water 300 ml 60 ml IV Total 110.0 ml 485.0 ml Tube Feeding 300 ml 125 ml # Bowel Movements 1 Laboratory Tests 01/20/19 05:17: Sodium Level 153H, Potassium Level 2.9L, Chloride Level 118H, Carbon Dioxide Level 24, Anion Gap 11, Blood Urea Nitrogen 14, Creatinine 0.6, Estimat Glomerular Filtration Rate > 60, Glucose Level 120H, Calcium Level 8.7, Total Bilirubin 0.5, Aspartate Amino Transf (AST/SGOT) 49H, Alanine Aminotransferase ( ALT/SGPT) 77, Alkaline Phosphatase 81, Total Creatine Kinase 80, Total Protein 7.0, Albumin 3.2L, Globulin 3.8, Albumin/Globulin Ratio 0.8L, Hepatitis A IgM Antibody [Pending], Hepatitis B Surface Antigen [Pending], Hepatitis B Core IgM Antibody [Pending], Hepatitis C Antibody [Pending] Height (Feet): 5 Height (Inches): 6.00 Weight (Pounds): 139 Objective Debilitated NCAT supple CTA RR abd soft (++) contracted Alex Joseph MD Jan 20, 2019 18:47
--- NOTE | 2019-01-20 19:22 | NUR ---
HAND-OFF: Report given to HOLLY Goins.
--- NOTE | 2019-01-20 19:25 | NUR ---
NURSE NOTES: PATIENT IN BED, AWAKE, NONVERBAL. NO S/S RESPIRATORY DISTRESS NOTED. NO S/S OF PAIN NOTED PER FLACC SCALE. ON GT FEEDING, 25 ml/h Vital AF. HOB ELEVATED, BED IN LOWEST POSITION, LOCKED, CALL LIGHT WITHIN REACH, BED ALARM ON. WILL CONTINUE TO MONITOR.
[2019-01-20 20:00] VITALS: BP 136/85
[2019-01-21] VITALS: BP 112/74
--- NOTE | 2019-01-21 03:00 | Progress Note ---
DATE: 01/20/2019 CARDIOLOGY PROGRESS NOTE SUBJECTIVE: Fevers are down. Heart rate improved. Abnormal labs persist. The patient is at the baseline mentation. PHYSICAL EXAMINATION: VITAL SIGNS: Blood pressure 136/85, heart rate 102, respiratory rate 20, and afebrile. T-max 99.2. LUNGS: Clear. CARDIAC: Regular. Rapid rate. Normal S1 and S2. ABDOMEN: Soft. G-tube intact. EXTREMITIES: No edema. Baseline contractures. NEUROLOGIC: Noncommunicative. IMPRESSION: 1. Dehydration. 2. Hyponatremia. 3. Hypovolemia. 4. Hypokalemia. 5. Sinus tachycardia. 6. Sepsis. PLAN: 1. Continue with hypotonic IV fluids. 2. Respiratory hygiene. 3. Aspiration precautions. 4. Empiric antimicrobials. 5. DVT prophylaxis. 6. Conservative management. Mario Alberto Merlos M.D. DR: TYE JOB#: [id number] CC:
[2019-01-21 04:00] VITALS: BP 108/68
[2019-01-21] MEDS: Piperacillin/Tazobactam 3.375 GM in NS 110 ML IVPB SCH ×3 (05:34→21:10)
[2019-01-21 06:37] LABS: ALANINE AMINOTRANSFERASE 63 U/L (12-78); ALBUMIN/GLOBULIN RATIO 0.8 (1.0-2.7); ALKALINE PHOSPHATASE 85 U/L (46-116); ANION GAP 8 mmol/L (5-15); ASPARTATE AMINO TRANSFERASE 36 U/L (15-37); BILIRUBIN,TOTAL 0.5 MG/DL (0.2-1.0); BLOOD UREA NITROGEN 11 mg/dL (7-18); CALCIUM 8.6 MG/DL (8.5-10.1); CARBON DIOXIDE 26 MMOL/L (21-32); CHLORIDE 109 MMOL/L (98-107); CREATININE 0.5 MG/DL (0.55-1.30); POTASSIUM 4.2 MMOL/L (3.5-5.1); SODIUM 143 MMOL/L (136-145)
--- NOTE | 2019-01-21 07:36 | NUR ---
HAND-OFF: Report given to HOLLY Nur.
--- NOTE | 2019-01-21 07:56 | NUR ---
NURSE NOTES: received patient in bed, awake with eyes open but non verbally responsive, no sign of pain or discomfort. In room air, has Right hand gauge 22 IV access, receives D5W @125cc/hr. Patient also receives GTF Vital AF @ 25cc/hr. Bed locked at the lowest position possible, call light within easy reach, siderails upx3, in bed alarm. Will continue to monitor patient and follow up with the plan of care.
[2019-01-21 08:00] VITALS: BP 123/60
--- NOTE | 2019-01-21 08:24 | General Progress Note ---
Assessment/Plan Problem List: (1) Sepsis ICD Codes: A41.9 - Sepsis, unspecified organism SNOMED: 05113419 (2) Tachycardia ICD Codes: R00.0 - Tachycardia, unspecified SNOMED: 4723170 (3) Hypokalemia ICD Codes: E87.6 - Hypokalemia SNOMED: 63362577 (4) Hypernatremia ICD Codes: E87.0 - Hyperosmolality and hypernatremia SNOMED: 558433324 (5) Encephalopathy acute ICD Codes: G93.40 - Encephalopathy, unspecified SNOMED: 49819187, 202968292 (6) Fecal impaction in rectum ICD Codes: K56.41 - Fecal impaction SNOMED: 75418829 (7) Demyelinating disease of central nervous system ICD Codes: G37.9 - Demyelinating disease of central nervous system, unspecified SNOMED: 1637609 (8) UTI (urinary tract infection) ICD Codes: N39.0 - Urinary tract infection, site not specified SNOMED: 48149076 (9) Intractable vomiting ICD Codes: R11.10 - Vomiting, unspecified SNOMED: 331367823 Status: stable, not improved Assessment/Plan: bowel regime per ig monitor for constipation/diarrhea iv abx per id replace lytes gt feeds guarded Subjective ROS Limited/Unobtainable: Yes Constitutional: Reports: malaise, weakness HEENT: Reports: no symptoms Cardiovascular: Reports: no symptoms Respiratory: Reports: cough Gastrointestinal/Abdominal: Reports: difficulty swallowing Genitourinary: Reports: no symptoms Neurologic/Psychiatric: Reports: pre-existing deficit Endocrine: Reports: no symptoms Hematologic/Lymphatic: Reports: anemia Allergies: Coded Allergies: No Known Allergies (Unverified , 11/08/18) All Systems: reviewed and negative except above Subjective no events. improving. fevers better. HR still running high at times. currently appears comfortable. labs improved Objective Last 24 Hour Vital Signs Date Time Temp Pulse Resp B/P (MAP) Pulse Ox O2 Delivery O2 Flow Rate FiO2 01/21/19 04:00 98.1 112 18 108/68 (81) 97 01/21/19 00:00 98.3 109 22 112/74 (87) 96 01/20/19 21:00 Room Air 01/20/19 20:00 98.4 102 20 136/85 (102) 96 01/20/19 16:00 98.0 100 18 125/78 (94) 95 01/20/19 12:00 99.2 91 20 124/86 (99) 97 01/20/19 08:30 Room Air Intake and Output 01/20/19 01/21/19 19:00 07:00 Intake Total 125 ml 985.0 ml Balance 125 ml 985.0 ml IV Total 125 ml 985.0 ml # Voids 4 2 # Bowel Movements 2 1 Laboratory Tests 01/21/19 05:25: Sodium Level 143, Potassium Level 4.2, Chloride Level 109H, Carbon Dioxide Level 26, Anion Gap 8, Blood Urea Nitrogen 11, Creatinine 0.5L, Estimat Glomerular Filtration Rate > 60, Glucose Level 144H, Calcium Level 8.6, Total Bilirubin 0.5, Aspartate Amino Transf (AST/SGOT) 36, Alanine Aminotransferase ( ALT/SGPT) 63, Alkaline Phosphatase 85, Total Protein 6.6, Albumin 3.0L, Globulin 3.6, Albumin/Globulin Ratio 0.8L Height (Feet): 5 Height (Inches): 6.00 Weight (Pounds): 139 Objective General Appearance: WD/WN, no apparent distress Neck: supple Cardiovascular: normal rate Respiratory/Chest: chest wall non-tender, lungs clear, normal breath sounds Abdomen: normal bowel sounds, non tender, soft, no organomegaly Edema: no edema noted Arm (L), no edema noted Arm (R), no edema noted Leg (L), no edema noted Leg (R), no edema noted Pedal (L), no edema noted Pedal (R), no edema noted Generalized Neurologic: motor weakness, aphasia Jasper Starr MD Jan 21, 2019 08:24
[2019-01-21] MEDS: Milk of Magnesia 30ml Ud GT SCH (08:47)
[2019-01-21] MEDS: Cyclobenzaprine 10mg Tab GT SCH ×3 (08:47→17:05)
[2019-01-21] MEDS: Docusate 100mg/10ml Liq GT SCH ×2 (08:48→17:04)
[2019-01-21] MEDS: Heparin 5000 units/ml inj SUBQ SCH ×2 (08:50→21:11)
[2019-01-21] MEDS: Lactulose 20gm/30ml UDC GT SCH ×2 (08:53→17:04)
[2019-01-21 11:46] VITALS: BP 105/64
[2019-01-21] MEDS ORDERED: NS 275ml ONE (13:02)
--- NOTE | 2019-01-21 14:53 | NUR ---
NURSE NOTES: clarified with dr Joseph regarding Lactulose as pt has diarrhea. Dr Joseph clarified that encephalopathy is not due to high level amonia, so he reviewed order of lactulose to "Hold for Diarrhea". Nurse entered dr. Joseph new order. Addendum: 01/21/19 at 1456 by CARISSA TEMPLETON RN Not hepatic encephalopathy per dr Joseph.
[2019-01-21 16:00] VITALS: BP 112/69
--- NOTE | 2019-01-21 16:30 | NUR ---
NURSE NOTES: nurse and BARBARA Chauhan cleaned patient, presenting profuse period and some urination in chux. Changed dressing of GT, sacral and right knee and elbow. Skin is intact under those dressings, dressed only for prophylaxis.
--- NOTE | 2019-01-21 16:33 | Infectious Diseases Prog Note ---
Assessment/Plan Assessment/Plan A 1. aspiration pneumonia 2. leucocytosis resolved 3. VRE UTI 4. seizures 5. demyelinating disease 6. negative C. difficile & HIDA scan P 1. continue Zosyn 2. repeated CXR negative Subjective ROS Limited/Unobtainable: Yes Constitutional: Denies: fever Allergies: Coded Allergies: No Known Allergies (Unverified , 11/08/18) Objective Vital Signs Last 24 Hour Vital Signs Date Time Temp Pulse Resp B/P (MAP) Pulse Ox O2 Delivery O2 Flow Rate FiO2 01/21/19 16:00 98.2 93 16 112/69 (83) 98 01/21/19 11:54 100 01/21/19 11:46 97.3 81 18 105/64 (78) 01/21/19 09:00 Room Air 01/21/19 08:00 98.2 108 18 123/60 (81) 100 01/21/19 04:00 98.1 112 18 108/68 (81) 97 01/21/19 00:00 98.3 109 22 112/74 (87) 96 01/20/19 21:00 Room Air 01/20/19 20:00 98.4 102 20 136/85 (102) 96 Height (Feet): 5 Height (Inches): 6.00 Weight (Pounds): 139 General Appearance: no acute distress HEENT: mucous membranes moist Respiratory/Chest: lungs clear Cardiovascular: normal rate Abdomen: soft, non tender, other - GT feeding Extremities: no edema, other - hands contracture Neurologic/Psychiatric: aphasia Microbiology Date/Time Source Procedure Growth Status 01/20/19 05:35 Stool Clostridium difficile Toxin Assay - Final Complete Laboratory Tests Test 01/21/19 05:25 Sodium Level 143 MMOL/L (136-145) Potassium Level 4.2 MMOL/L (3.5-5.1) Chloride Level 109 MMOL/L (98-107) H Carbon Dioxide Level 26 MMOL/L (21-32) Anion Gap 8 mmol/L (5-15) Blood Urea Nitrogen 11 mg/dL (7-18) Creatinine 0.5 MG/DL (0.55-1.30) L Estimat Glomerular Filtration Rate > 60 mL/min (>60) Glucose Level 144 MG/DL (74-106) H Calcium Level 8.6 MG/DL (8.5-10.1) Total Bilirubin 0.5 MG/DL (0.2-1.0) Aspartate Amino Transf (AST/SGOT) 36 U/L (15-37) Alanine Aminotransferase (ALT/SGPT) 63 U/L (12-78) Alkaline Phosphatase 85 U/L (46-116) Total Protein 6.6 G/DL (6.4-8.2) Albumin 3.0 G/DL (3.4-5.0) L Globulin 3.6 g/dL Albumin/Globulin Ratio 0.8 (1.0-2.7) L Current Medications Medications (Trade) Dose Ordered Sig/Alex Route PRN Reason Start Time Stop Time Status Last Admin Dose Admin Acetaminophen (Tylenol) 650 mg Q4H PRN GT Mild Pain/Temp > 100.5 01/19/19 17:00 02/18/19 16:59 Acetaminophen/ Hydrocodone Bitart ([place] 10) 1 tab Q4H PRN GT For Pain 01/19/19 17:00 01/23/19 21:59 Cyclobenzaprine HCl (Flexeril) 10 mg THREE TIMES A DAY GT 01/17/19 09:00 02/16/19 08:59 01/21/19 14:09 Dextrose 1,000 ml @ 125 mls/hr Q8H IV 01/19/19 17:13 02/18/19 17:12 01/21/19 14:16 Docusate Sodium (Colace) 250 mg BID GT 01/19/19 18:00 02/18/19 17:59 01/20/19 10:06 Fentanyl (Duragesic) 1 patch EVERY 72 HOURS TDERMAL 01/17/19 09:00 01/24/19 08:59 01/20/19 10:18 Heparin Sodium (Porcine) (Heparin 5000 units/ml) 5,000 units EVERY 12 HOURS SUBQ 01/17/19 21:00 02/16/19 20:59 01/21/19 08:50 Lactulose (Cephulac) 15 gm BID GT 01/21/19 18:00 02/18/19 08:59 Lansoprazole (Prevacid) 30 mg DAILY GT 01/21/19 09:00 02/20/19 08:59 01/21/19 08:46 Levetiracetam (Keppra) 1,000 mg QHS GT 01/17/19 21:00 02/16/19 20:59 01/20/19 21:17 Lorazepam (Ativan) 0.5 mg Q4H PRN GT For Anxiety 01/16/19 22:00 01/23/19 21:59 Magnesium Hydroxide (Mom) 30 ml DAILY GT 01/17/19 09:00 02/16/19 08:59 01/20/19 10:05 Miscellaneous Medication (fentaNYL Destruction) 1 ea Q72H MISC 01/20/19 08:59 02/19/19 08:58 01/20/19 08:59 Multivitamins (Multivitamins) 1 tab DAILY GT 01/17/19 09:00 02/16/19 08:59 01/21/19 08:47 Piperacillin Sod/ Tazobactam Sod 3.375 gm/Sodium Chloride 110 ml @ 27.5 mls/hr EVERY 8 HOURS IVPB 01/17/19 06:00 01/26/19 05:59 01/21/19 14:09 Potassium Chloride (K-Dur) 40 meq DAILY GT 01/20/19 09:00 02/18/19 08:59 01/21/19 08:47 Sennosides (Senokot) 8.6 mg DAILYPRN PRN GT Constipation 01/16/19 22:00 02/15/19 21:59 Vern López MD Jan 21, 2019 16:33
[2019-01-21 20:00] VITALS: BP 119/60
--- NOTE | 2019-01-21 20:01 | NUR ---
HAND-OFF: Report given to HOLLY Jesus.
--- NOTE | 2019-01-21 20:51 | NUR ---
NURSE NOTES: Pt is in bed, awake and non-verbal. Pt opens eyes and smiles. No acute distress noted. Vitals stable. Pt is bedbound, severely contracted. HOB elevated. Vital AF running via G-tube at 25ml/hr. 1/2Ns running at 75ml/hr. Pt will be repositioned frequently. bed locked low in position,side rails up and call light within reach. Pt will be monitored.
--- NOTE | 2019-01-21 21:00 | Progress Note ---
DATE: 01/21/2019 CARDIOLOGY PROGRESS NOTE SUBJECTIVE: The patient continues on antimicrobials still with fevers although the low grade. Still has tachycardia at times. No apparent distress. OBJECTIVE: VITAL SIGNS: Blood pressure 108/68, heart rate 112, respiratory rate 18, afebrile, and oxygen saturation 97% on room air. LUNGS: Clear. Oropharynx clear with somewhat dry mucous membranes. HEART: Regular rhythm. Rapid rate. Normal S1, S2. ABDOMEN: Soft with G-tube. EXTREMITIES: No edema. Contractures without change. LABORATORY DATA: Sodium 143, potassium 4.2, chloride 109, bicarb 26, BUN 11, and creatinine 0.5. Albumin 3. Glucose 144. IMPRESSION: 1. Secondary sinus tachycardia. 2. Recovering sepsis. 3. Resolving dehydration and hypovolemia. 4. Aspiration pneumonia, improved. 5. 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 6. Dysphagia with G-tube. PLAN: 1. Antimicrobials. 2. Respiratory hygiene. 3. Avoid beta-agonist. 4. No role for beta-serg. 5. Continue hydration. 6. Nutritional support. 7. DVT prophylaxis. Mario Alberto Merlos M.D. DR: SUDARSHAN JOB#: [id number] CC:
--- NOTE | 2019-01-21 21:03 | General Progress Note ---
Assessment/Plan Status: stable, not improved Assessment/Plan: Assessment - Rectal stool impaction, resolved - Fever - diarrhea from lactulose - Abnormal LFT - distended stomach / duodenum - functional - resolved - MS/contracted/bed bound - hypernatremia / hypokalemia Recommendations - Continue TF - free water - elevate HOB - monitor residuals - Hold lactulose for diarrhea Subjective Allergies: Coded Allergies: No Known Allergies (Unverified , 11/08/18) Subjective above noted tolerating TF RN reports diarrhea from lactulose Objective Last 24 Hour Vital Signs Date Time Temp Pulse Resp B/P (MAP) Pulse Ox O2 Delivery O2 Flow Rate FiO2 01/21/19 16:00 98.2 93 16 112/69 (83) 98 01/21/19 11:54 100 01/21/19 11:46 97.3 81 18 105/64 (78) 01/21/19 09:00 Room Air 01/21/19 08:00 98.2 108 18 123/60 (81) 100 01/21/19 04:00 98.1 112 18 108/68 (81) 97 01/21/19 00:00 98.3 109 22 112/74 (87) 96 Intake and Output 01/20/19 01/21/19 18:59 06:59 Intake Total 1110.0 ml Balance 1110.0 ml IV Total 1110.0 ml # Voids 4 2 # Bowel Movements 2 1 Laboratory Tests 01/21/19 05:25: Sodium Level 143, Potassium Level 4.2, Chloride Level 109H, Carbon Dioxide Level 26, Anion Gap 8, Blood Urea Nitrogen 11, Creatinine 0.5L, Estimat Glomerular Filtration Rate > 60, Glucose Level 144H, Calcium Level 8.6, Total Bilirubin 0.5, Aspartate Amino Transf (AST/SGOT) 36, Alanine Aminotransferase ( ALT/SGPT) 63, Alkaline Phosphatase 85, Total Protein 6.6, Albumin 3.0L, Globulin 3.6, Albumin/Globulin Ratio 0.8L Height (Feet): 5 Height (Inches): 6.00 Weight (Pounds): 139 Objective Debilitated NCAT supple CTA RR abd soft (++) contracted Alex Joseph MD Jan 21, 2019 21:03
[2019-01-22] VITALS: BP 100/68
[2019-01-22 04:00] VITALS: BP 123/67
--- NOTE | 2019-01-22 05:21 | NUR ---
NURSE NOTES: Pt is in bed, asleep. No acute distress noted. Pt repositioned frequently. HOB elevated. Pt tolerating tube feeding well. No residuals, G-tube patent. 1/2Ns running at 75ml/hr. Vitals stable.
[2019-01-22] MEDS: Piperacillin/Tazobactam 3.375 GM in NS 110 ML IVPB SCH ×3 (05:36→21:36)
--- NOTE | 2019-01-22 07:10 | NUR ---
HAND-OFF: Report given to HOLLY Nur.
--- NOTE | 2019-01-22 07:50 | NUR ---
NURSE NOTES: received patient in bed, awake, open eyes but non verbally responsive, no sign of pain or discomfort. In room air, has Right hand gauge 22 IV access, receives 1/2NS @ 75cc/hr. Patient also receives GTF Vital AF @ 25cc/hr. Bed locked at the lowest position possible, call light within easy reach, siderails upx3, in bed alarm. Will continue to monitor patient and follow up with the plan of care.
[2019-01-22 08:00] VITALS: BP 112/62
[2019-01-22] MEDS ORDERED: 1/2 NS 1000ml IV ONE ×2 (08:56→08:57)
[2019-01-22] MEDS: Lactulose 20gm/30ml UDC GT SCH ×2 (09:00→16:58)
[2019-01-22] MEDS: Docusate 100mg/10ml Liq GT SCH ×2 (09:00→16:58)
[2019-01-22] MEDS: Milk of Magnesia 30ml Ud GT SCH (09:00)
[2019-01-22] MEDS: Cyclobenzaprine 10mg Tab GT SCH ×3 (09:13→16:59)
[2019-01-22] MEDS: Heparin 5000 units/ml inj SUBQ SCH ×2 (09:14→21:44)
--- NOTE | 2019-01-22 09:59 | General Progress Note ---
Assessment/Plan Problem List: (1) Sepsis ICD Codes: A41.9 - Sepsis, unspecified organism SNOMED: 65289175 (2) Tachycardia ICD Codes: R00.0 - Tachycardia, unspecified SNOMED: 3546198 (3) Hypokalemia ICD Codes: E87.6 - Hypokalemia SNOMED: 01394352 (4) Hypernatremia ICD Codes: E87.0 - Hyperosmolality and hypernatremia SNOMED: 429557990 (5) Encephalopathy acute ICD Codes: G93.40 - Encephalopathy, unspecified SNOMED: 09072003, 998030454 (6) Fecal impaction in rectum ICD Codes: K56.41 - Fecal impaction SNOMED: 18048974 (7) Demyelinating disease of central nervous system ICD Codes: G37.9 - Demyelinating disease of central nervous system, unspecified SNOMED: 7141089 (8) UTI (urinary tract infection) ICD Codes: N39.0 - Urinary tract infection, site not specified SNOMED: 31200817 (9) Intractable vomiting ICD Codes: R11.10 - Vomiting, unspecified SNOMED: 109671247 Status: stable, not improved Assessment/Plan: bowel regime per gi monitor for constipation/diarrhea iv abx per id replace lytes as needed gt feeds improving dc planning tomorrow to snf on iv abx if needed Subjective ROS Limited/Unobtainable: Yes Constitutional: Reports: malaise, weakness HEENT: Reports: no symptoms Cardiovascular: Reports: no symptoms Respiratory: Reports: no symptoms Gastrointestinal/Abdominal: Reports: difficulty swallowing Genitourinary: Reports: no symptoms Neurologic/Psychiatric: Reports: pre-existing deficit Endocrine: Reports: no symptoms Hematologic/Lymphatic: Reports: no symptoms Allergies: Coded Allergies: No Known Allergies (Unverified , 11/08/18) All Systems: reviewed and negative except above Subjective no events. improving. fevers better. HR better. currently appears comfortable. labs improved. remains on iv abx Objective Last 24 Hour Vital Signs Date Time Temp Pulse Resp B/P (MAP) Pulse Ox O2 Delivery O2 Flow Rate FiO2 01/22/19 08:00 98.2 93 18 112/62 (79) 98 01/22/19 04:00 97.1 91 20 123/67 (85) 97 01/22/19 00:00 97.6 83 20 100/68 (79) 95 01/21/19 21:00 Room Air 01/21/19 20:00 97.2 90 20 119/60 (79) 96 01/21/19 16:00 98.2 93 16 112/69 (83) 98 01/21/19 11:54 100 01/21/19 11:46 97.3 81 18 105/64 (78) Intake and Output 01/21/19 01/22/19 19:00 07:00 Intake Total 1092.5 ml 3990.0 ml Balance 1092.5 ml 3990.0 ml Intake Free Water 100 ml 100 ml IV Total 692.5 ml 3615.0 ml Tube Feeding 300 ml 275 ml # Voids 3 1 # Bowel Movements 1 1 Height (Feet): 5 Height (Inches): 6.00 Weight (Pounds): 139 Objective General Appearance: WD/WN, no apparent distress Neck: supple Cardiovascular: normal rate Respiratory/Chest: chest wall non-tender, lungs clear, normal breath sounds Abdomen: normal bowel sounds, non tender, soft, no organomegaly Edema: no edema noted Arm (L), no edema noted Arm (R), no edema noted Leg (L), no edema noted Leg (R), no edema noted Pedal (L), no edema noted Pedal (R), no edema noted Generalized Neurologic: motor weakness, aphasia Jasper Starr MD Jan 22, 2019 09:59
[2019-01-22 12:00] VITALS: BP 101/72
[2019-01-22 16:00] VITALS: BP 130/81
--- NOTE | 2019-01-22 16:00 | Progress Note ---
DATE: 01/22/2019 CARDIOLOGY PROGRESS NOTE SUBJECTIVE: The patient with less fever, heart rate improving, at baseline mentation and function, nonverbal. PHYSICAL EXAMINATION: VITAL SIGNS: Blood pressure 112/62, pule 93, respiratory rate 18. LUNGS: Clear. CARDIAC: Regular. ABDOMEN: Soft. G-tube intact. EXTREMITIES: No edema. Contractures. IMPRESSION: 1. Sepsis. 2. Secondary sinus tachycardia, resolved. 3. Hypokalemia, resolved. 4. and hypovolemia with dehydration. 5. Possible lung mass. PLAN: 1. Antimicrobials. 2. Maintenance hydration. 3. Nutrition by feeding tube. 4. No additional cardiovascular therapy is indicated. Mario Alberto Merlos M.D. DR: Paul JOB#: [id number] CC:
--- NOTE | 2019-01-22 17:00 | NUR ---
NURSE NOTES: nurse and BARBARA Chauhan cleaned patient, who's having profuse menses and urination in chux. Changed dressing of GT, sacral and right knee and elbow. Skin is intact under those dressings, dressed only for prophylaxis.
--- NOTE | 2019-01-22 18:37 | General Progress Note ---
Assessment/Plan Status: stable, not improved Assessment/Plan: Assessment - Rectal stool impaction, resolved - Fever - diarrhea from lactulose - Abnormal LFT - distended stomach / duodenum - functional - resolved - MS/contracted/bed bound - hypernatremia / hypokalemia Recommendations - Continue TF - free water - elevate HOB - monitor residuals - Hold lactulose for diarrhea Subjective Allergies: Coded Allergies: No Known Allergies (Unverified , 11/08/18) Subjective above noted tolerating TF calm, NAD Objective Last 24 Hour Vital Signs Date Time Temp Pulse Resp B/P (MAP) Pulse Ox O2 Delivery O2 Flow Rate FiO2 01/22/19 16:00 97.8 94 18 130/81 (97) 97 01/22/19 12:00 98.3 94 18 101/72 (82) 95 01/22/19 09:00 Room Air 01/22/19 08:00 98.2 93 18 112/62 (79) 98 01/22/19 04:00 97.1 91 20 123/67 (85) 97 01/22/19 00:00 97.6 83 20 100/68 (79) 95 01/21/19 21:00 Room Air 01/21/19 20:00 97.2 90 20 119/60 (79) 96 Intake and Output 01/21/19 01/22/19 18:59 06:59 Intake Total 1120.0 ml 4015.0 ml Balance 1120.0 ml 4015.0 ml Intake Free Water 100 ml 100 ml IV Total 720.0 ml 3615.0 ml Tube Feeding 300 ml 300 ml # Voids 3 1 # Bowel Movements 1 1 Height (Feet): 5 Height (Inches): 6.00 Weight (Pounds): 139 Objective Debilitated NCAT supple CTA RR abd soft (++) contracted Alex Joseph MD Jan 22, 2019 18:37
--- NOTE | 2019-01-22 19:13 | NUR ---
HAND-OFF: Report given to RN Mahesh.
[2019-01-22 20:00] VITALS: BP 100/64
[2019-01-22] MEDS: HYDROcodone/Acetamin 10/325 tab GT PRN (21:37)
[2019-01-23] VITALS: BP 124/67
[2019-01-23 04:00] VITALS: BP 112/58
--- NOTE | 2019-01-23 05:00 | NUR ---
NURSE NOTES: Pt is in bed, asleep. No acute distress noted. Pt repositioned frequently and cleaned. HOB elevated. Pt tolerating tube feeding well. No residuals, G-tube patent. 1/2Ns running at 75ml/hr. Vitals stable.
--- NOTE | 2019-01-23 06:00 | NUR ---
NURSE NOTES: Pt and pt's family want patient to go home possibly with a portable oxygen tank. Addendum: 01/23/19 at 9926 by HANS ANDERSEN RN RN Disregard above note; wrong patient.
[2019-01-23] MEDS: Piperacillin/Tazobactam 3.375 GM in NS 110 ML IVPB SCH (06:01)
--- NOTE | 2019-01-23 07:10 | NUR ---
HAND-OFF: Report given to HOLLY Oliva.Informed that Pt is fall risk.
--- NOTE | 2019-01-23 07:34 | NUR ---
NURSE NOTES: received patient in bed, awake, non verbal, no sign of pain or discomfort. In room air, right hand gauge 22 IV access, receives 1/2NS @ 75cc/hr. Patient also on GTF Vital AF @ 25cc/hr. Bed locked at the lowest position possible, call light within easy reach, siderails upx3, in bed alarm. Will continue to monitor patient and follow up with the plan of care.
[2019-01-23 08:00] VITALS: BP 135/80
[2019-01-23] MEDS ORDERED: ZOSYN 3.373.375 GM/1 IVPB (08:04)
--- NOTE | 2019-01-23 08:14 | General Progress Note ---
Assessment/Plan Status: stable, not improved Assessment/Plan: Assessment - Rectal stool impaction - resolved - Fever - resolved - diarrhea from lactulose - will reduce to qd dosing - Abnormal LFT - resolved - distended stomach / duodenum - functional - resolved - MS/contracted/bed bound Recommendations - Continue TF - advance to goal - free water - elevate HOB - monitor residuals - trial of qd lactulose Subjective Allergies: Coded Allergies: No Known Allergies (Unverified , 11/08/18) Subjective above noted tolerating TF calm, NAD d/w RN - no BM off of lactulose yesterday Objective Last 24 Hour Vital Signs Date Time Temp Pulse Resp B/P (MAP) Pulse Ox O2 Delivery O2 Flow Rate FiO2 01/23/19 04:00 98.1 91 18 112/58 (76) 98 01/23/19 00:00 97.5 94 18 124/67 (86) 98 01/22/19 21:00 Room Air 01/22/19 20:00 98.1 93 18 100/64 (76) 97 01/22/19 16:00 97.8 94 18 130/81 (97) 97 01/22/19 12:00 98.3 94 18 101/72 (82) 95 01/22/19 09:00 Room Air Intake and Output 01/22/19 01/23/19 19:00 07:00 Intake Total 1487.5 ml 1235.0 ml Balance 1487.5 ml 1235.0 ml Intake Free Water 100 ml 100 ml IV Total 1087.5 ml 860.0 ml Tube Feeding 300 ml 275 ml # Voids 4 3 Height (Feet): 5 Height (Inches): 6.00 Weight (Pounds): 139 Objective Debilitated NCAT supple CTA RR abd soft (++) contracted Alex Joseph MD Jan 23, 2019 08:14
[2019-01-23] MEDS: fentaNYL Destruction MISC SCH (08:59)
[2019-01-23] MEDS: Docusate 100mg/10ml Liq GT SCH (10:01)
[2019-01-23] MEDS: Milk of Magnesia 30ml Ud GT SCH (10:01)
[2019-01-23] MEDS: Lactulose 20gm/30ml UDC GT SCH (10:01)
[2019-01-23] MEDS: Cyclobenzaprine 10mg Tab GT SCH ×2 (10:02→13:03)
[2019-01-23] MEDS: Heparin 5000 units/ml inj SUBQ SCH (10:07)
[2019-01-23] MEDS: HYDROcodone/Acetamin 10/325 tab GT PRN (10:09)
--- NOTE | 2019-01-23 10:57 | NUR ---
DISCHARGE PLANNING DISCHARGE ORDER NOTED FAXED CLINICALS TO [facility] T: [phone] *AWAIT ACCEPTANCE AND ASSIGNED ROOM NUMBER
--- NOTE | 2019-01-23 11:20 | Infectious Diseases Prog Note ---
Assessment/Plan Assessment/Plan antibiotics : zosyn A 1. aspiration pneumonia s/p rx 2. leucocytosis resolved 3. VRE UTI s/p rx 4. seizures 5. demyelinating disease P 1. d.c zosyn 2. observe off antibiotics Subjective ROS Limited/Unobtainable: Yes Allergies: Coded Allergies: No Known Allergies (Unverified , 11/08/18) Objective Vital Signs Last 24 Hour Vital Signs Date Time Temp Pulse Resp B/P (MAP) Pulse Ox O2 Delivery O2 Flow Rate FiO2 01/23/19 04:00 98.1 91 18 112/58 (76) 98 01/23/19 00:00 97.5 94 18 124/67 (86) 98 01/22/19 21:00 Room Air 01/22/19 20:00 98.1 93 18 100/64 (76) 97 01/22/19 16:00 97.8 94 18 130/81 (97) 97 01/22/19 12:00 98.3 94 18 101/72 (82) 95 Height (Feet): 5 Height (Inches): 6.00 Weight (Pounds): 139 Respiratory/Chest: lungs clear Cardiovascular: normal rate, regular rhythm, no gallop/murmur Abdomen: soft, non tender, other - GT Extremities: no edema Current Medications Medications (Trade) Dose Ordered Sig/Alex Route PRN Reason Start Time Stop Time Status Last Admin Dose Admin Acetaminophen (Tylenol) 650 mg Q4H PRN GT Mild Pain/Temp > 100.5 01/19/19 17:00 02/18/19 16:59 Acetaminophen/ Hydrocodone Bitart ([place] 10/325) 1 tab Q4H PRN GT For Pain 01/19/19 17:00 01/23/19 21:59 01/23/19 10:09 Cyclobenzaprine HCl (Flexeril) 10 mg THREE TIMES A DAY GT 01/17/19 09:00 02/16/19 08:59 01/23/19 10:02 Docusate Sodium (Colace) 250 mg BID GT 01/19/19 18:00 02/18/19 17:59 01/23/19 10:01 Fentanyl (Duragesic) 1 patch EVERY 72 HOURS TDERMAL 01/17/19 09:00 02/22/19 08:59 01/23/19 10:05 Heparin Sodium (Porcine) (Heparin 5000 units/ml) 5,000 units EVERY 12 HOURS SUBQ 01/17/19 21:00 02/16/19 20:59 01/23/19 10:07 Lactulose (Cephulac) 15 gm BID GT 01/21/19 18:00 02/18/19 08:59 01/23/19 10:01 Lansoprazole (Prevacid) 30 mg DAILY GT 01/21/19 09:00 02/20/19 08:59 01/23/19 10:02 Levetiracetam (Keppra) 1,000 mg QHS GT 01/17/19 21:00 02/16/19 20:59 01/22/19 21:37 Lorazepam (Ativan) 0.5 mg Q4H PRN GT For Anxiety 01/16/19 22:00 01/23/19 21:59 Magnesium Hydroxide (Mom) 30 ml DAILY GT 01/17/19 09:00 02/16/19 08:59 01/23/19 10:01 Miscellaneous Medication (fentaNYL Destruction) 1 ea Q72H MISC 01/20/19 08:59 02/22/19 08:58 01/23/19 08:59 Multivitamins (Multivitamins) 1 tab DAILY GT 01/17/19 09:00 02/16/19 08:59 01/23/19 10:01 Piperacillin Sod/ Tazobactam Sod 3.375 gm/Sodium Chloride 110 ml @ 27.5 mls/hr EVERY 8 HOURS IVPB 01/17/19 06:00 01/26/19 05:59 01/23/19 06:01 Potassium Chloride (K-Dur) 40 meq DAILY GT 01/20/19 09:00 02/18/19 08:59 01/23/19 10:02 Sennosides (Senokot) 8.6 mg DAILYPRN PRN GT Constipation 01/16/19 22:00 02/15/19 21:59 Sodium Chloride 1,000 ml @ 75 mls/hr [id number] IV 01/21/19 18:01 02/20/19 18:00 01/23/19 10:00 Mateusz Bone MD Jan 23, 2019 11:20
--- NOTE | 2019-01-23 11:58 | NUR ---
DISCHARGE PLANNED PATIENT IS RETURNING TO [facility] ER ROOM 16A SKILLED T: [phone] FOR NURSE TO NURSE REPORT [facility] HAS BEEN ARRANGED FOR 1400 NURSE PRACTITIONER PHYSICIAN ASSISTANT
[2019-01-23 12:00] VITALS: BP 131/82
--- NOTE | 2019-01-23 12:50 | Cardiology Report ---
APPROVED REPORT EKG Measurement Heart [id number] OR [id number] [id number] Normal sinus rhythm Normal ECG
--- NOTE | 2019-01-23 15:00 | NUR ---
NURSE NOTES: patient has been discharged back to [facility], report given to HOLLY Peña from the facility. Contacted Preston Lebron, left message, subsequently he called nurse back and was informed of patient discharge. Patient in stable condition and VS, no IV access as IV atb was dc'd per dr Bone. No belongings on belongings list. Given discharge packet with medication reconciliation to EMT Baldev Allen [facility]. Patient has intact skin, only discoloration at sacral due to resurfacing, picture taken. Addendum: 01/23/19 at 1523 by CARISSA TEMPLETON RN patient is on her period so she has vaginal thin pink secretion. Communicated to EMT Allen.
[2019-01-23] MEDS ORDERED: 1/2 NS 1000ml IV ONE (15:19)
[2019-01-23] MEDS ORDERED: NS 275ml ONE (15:19)
--- NOTE | 2019-01-24 01:00 | Discharge Summary ---
DATE OF ADMISSION: 01/16/2019 DATE OF DISCHARGE: 01/23/2019 ADMISSION DIAGNOSES: 1. Sepsis. 2. Multiple sclerosis. 3. Functional quadriplegia. 4. Toxic metabolic encephalopathy. 5. Urinary tract infection. 6. Fecal impaction. 7. Constipation. DISCHARGE DIAGNOSES: 1. Sepsis. 2. Multiple sclerosis. 3. Functional quadriplegia. 4. Toxic metabolic encephalopathy. 5. Urinary tract infection. 6. Fecal impaction. 7. Constipation. HOSPITAL COURSE: The patient is an unfortunate female with history of multiple sclerosis. She was admitted with complaints of sepsis from urinary tract infection as well as a fecal impaction. She received multiple laxatives and finally had a bowel movement. She received broad-spectrum IV antibiotics. She did have positive urine cultures. Blood cultures were negative. Her hospital course was complicated by tachycardia and fevers. The patient eventually improved with antibiotic therapy. On discharge, she was tolerating feedings. She was having normal bowel movements. DISCHARGE MEDICATIONS: Please see discharge medication list for discharge medications. DIET: G-tube feedings. ACTIVITIES: Ad-alexander. DISCHARGE DISPOSITION: The patient will be discharged to [facility] facility to complete intravenous antibiotic therapy. Jasper Starr M.D. DR: CAMPOS JOB#: [id number] CC:
[2019-01-24] MEDS ORDERED: Lactulose 20gm/30ml UDC GT SCH (09:00)
== END 2019-01-23 15:20 | DRG 871 ==
LOC: EDBD 19:12 → EMR 19:36 → 4E 21:22 → EDBEDREQ 21:41 → 4E 01-17 22:07
DX: A41.9 Sepsis, unspecified organism (principal); J69.0 Pneumonitis due to inhalation of food and vomit; R53.2 Functional quadriplegia; G92 Toxic encephalopathy; N39.0 Urinary tract infection, site not specified; E87.0 Hyperosmolality and hypernatremia; B95.5 Unspecified streptococcus as the cause of diseases classified elsewhere; R11.10 Vomiting, unspecified; G40.909 Epilepsy, unspecified, not intractable, without status epilepticus; K52.9 Noninfective gastroenteritis and colitis, unspecified; G35 Multiple sclerosis; K56.41 Fecal impaction; E86.1 Hypovolemia; E86.0 Dehydration; E87.6 Hypokalemia; F03.90 Unspecified dementia, unspecified severity, without behavioral disturbance, psychotic disturbance, mood disturbance, and anxiety; Z66 Do not resuscitate
CPT/HCPCS: 36415; 71045; 74177; 74247; 78266; 80048; 80053; 80299; 81003; 82550; 82553; 83605; 83735; 84443; 85007; 85025; 85610; 85730; 86705; 86709; 86803; 87040; 87081; 87086; 87181; 87324; 87340; 93005; 96365; 99285; J8499

== ENCOUNTER 2019-06-10 18:31 | Emergency (ER) | payer MEDICARE, OTHER ==
[~2019-06-10] VITALS: Ht 167.6 cm; Wt 63.5 kg
[~2019-06-10 18:31] MED LIST changes: +ATIVAN0.5 MG GT; +CYCLOBENZAPRINE10 MG GT; +DURAGESIC1 E1 TOPIC; +KEPPRA1000 MG GT; +MILK OF MA400 MG/51 ORAL; +MULTIVITAMINS1 EAC2 ORAL; +NORCO 10-325 T1 EACH ORAL; +PROSTAT GT; +SENNA8.6 M2 GT; +SEROQUEL300 MG GT; +VITAMIN C500 M7 PO; +ZOSYN 3.373.375 GM/1 IVPB
--- NOTE | 2019-06-10 18:32 | Emergency Room Report ---
History of Present Illness General Source: EMS Present Illness HPI Patient here for G-tube replacement. Uncertain how G-tube was dislodged. A Burger catheter was placed in the G-tube site. There is no history of fever. Patient has a history of multiple sclerosis with limb deformity and cognitive defects. Apparently she was in hospice care but has been removed from this. Patient was seen in November 2018 for seizure. She is currently on Keppra. No alleged seizure activity. Further history unobtainable. Patient admitted January 2019 for intractable vomiting. Discharge diagnoses: 1. Sepsis. 2. Multiple sclerosis. 3. Functional quadriplegia. 4. Toxic metabolic encephalopathy. 5. Urinary tract infection. 6. Fecal impaction. 7. Constipation. 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,left/right elbow contractures, muscle weakness Hx Seizures: Yes - epilepsy Review of Systems All Other Systems: limited Physical Exam Vital Signs Date Time Temp Pulse Resp B/P (MAP) Pulse Ox O2 Delivery O2 Flow Rate FiO2 06/10/19 18:34 96.4 80 18 101/65 (77) 95 Room Air Sp02 EP Interpretation: reviewed, abnormal - Interpreted as slightly low by me General Appearance: alert, non-toxic, other - Smiles with verbal interaction and tracks examiner with eyes, Chronically Ill Head: normocephalic, atraumatic Eyes: bilateral eye normal inspection, bilateral eye PERRL, bilateral eye EOMI ENT: moist mucus membranes - Plaque formation Neck: supple, other - No tenderness Respiratory: lungs clear, normal breath sounds Cardiovascular #1: regular rate, rhythm Cardiovascular #2: 2+ radial (L) Gastrointestinal: normal bowel sounds, non tender, soft, non-distended, other - Burger and gastrostomy tube site no erythema Genitourinary: no CVA tenderness Musculoskeletal: other - Contractures left leg greater than right with extensor contractures and hyper spasticity Neurologic: responsive - To voice, aphasia Psychiatric: mood/affect normal - Smiling with eye contact and vocalization Skin: normal color, warm/dry, other - Stage II right buttock decubitus and stage I heel decubitus Medical Decision Making Diagnostic Impression: Primary Impression: Malfunction of gastrostomy tube Additional Impressions: Multiple sclerosis Functional quadriplegia ER Course Patient presents post gastrostomy tube falling out. Patient afebrile and in no distress with good hydration. Replacement of gastrostomy tube indicated. Patient has functional quadriplegia and debilitating multiple sclerosis. Gastrostomy tube replaced with ease. X-ray with good placement. Patient stable for outpatient observation and treatment. Other X-Ray Diagnostic Results Other X-Ray Diagnostic Results : X-Ray ordered: abd # of Views/Limited Vs Complete: 1 View Indication: Other Interpretation: nonspecific bowel gas, no sbo, other - gastrograffin in stomach Impression: Other Electronically Signed by: Electronically signed by Mario Alberto Ayers MD Last Vital Signs Date Time Temp Pulse Resp B/P (MAP) Pulse Ox O2 Delivery O2 Flow Rate FiO2 06/10/19 20:35 96.4 88 20 110/69 97 Room Air Status: improved Disposition: [facility] Condition: Improved Mario Alberto Ayers MD Jun 10, 2019 18:32
--- NOTE | 2019-06-10 18:50 | NUR ---
ED Nurse Note: Pt brought by ambulance from [facility] for g-tube misplacement. Pt is awake, alert&orientexdx0, pt is nonverbal, distractible. Pt is contracted on all 4 extremities. ROM 1/5 4 extremities. D Armen is aware to put in g-tube. Pt set up on monitor.
--- NOTE | 2019-06-10 18:54 | NUR ---
ED Nurse Note: 1854 G tube [address] Ayers.
[2019-06-10 18:55] VITALS: BP 110/69
--- NOTE | 2019-06-10 19:23 | NUR ---
Spoke with Lenard Mccracken-aware of patients return back home by ambulance.
--- NOTE | 2019-06-10 19:25 | NUR ---
ED Nurse Note: Recieved report to resume care, pt in bed awake with eyes open, pt was here for g-tube replacement which has been done and pt is discharged waiting for transportation back to SNF facility, will continuie to monitro while waiting.
[2019-06-10 20:35] VITALS: BP 110/69
--- NOTE | 2019-06-10 20:35 | NUR ---
ER DISCHARGE NOTE: Patient is cleared to be discharged per ERMD, pt is aox4, on room air, with stable vital signs. yard truck driver was given dc instructions, was able to verbalize understanding, pt id band removed without complications. pt took all belongings.
--- NOTE | 2019-06-10 21:07 | Diagnostic Imaging Report ---
EXAM: XR Abdomen, 2 Views CLINICAL HISTORY: TUBE PLCMT TECHNIQUE: Frontal view of the abdomen/pelvis with upright view of the abdomen. COMPARISON: No relevant prior studies available. FINDINGS: Lower thorax: Otherwise Limited evaluation. Suboptimally visualized lung bases and visualized portions of the pelvis. Chronic left femoral dislocation. Intraperitoneal space: No free air. Gastrointestinal tract: Unremarkable. No dilation. Bones/joints: See above. Tubes, lines and devices: Immediate post contrast administration images demonstrate no extraluminal contrast. Percutaneous gastrostomy tube appears to be placed. Other findings: Irregular pattern of contrast attenuation and appearance seen on immediate postinjection images represents contrast within sponges on the patient's abdomen. These were removed and on subsequent imaging are not seen. IMPRESSION: 1. Percutaneous gastrostomy tube properly positioned. 2. Otherwise Limited evaluation. 3. Suboptimally visualized lung bases and visualized portions of the pelvis. Chronic left femoral dislocation. 4. If there is further concern, additional imaging.
== END 2019-06-10 20:35 ==
LOC: EDBD 18:31 → EMR 19:08
DX: K94.23 Gastrostomy malfunction (principal); G35 Multiple sclerosis; R53.2 Functional quadriplegia; G40.909 Epilepsy, unspecified, not intractable, without status epilepticus; L89.312 Pressure ulcer of right buttock, stage 2; L89.611 Pressure ulcer of right heel, stage 1
CPT/HCPCS: 74018; 99283